=== PATIENT | male | born 1955 | race African-American/Black ===

== ENCOUNTER 2016-08-20 12:15 | Inpatient (IN) | payer MEDICARE, OTHER ==
[~2016-08-20] VITALS: Ht 175.3 cm; Wt 89.7 kg
[2016-08-20] VITALS (8 sets, daily range): BP systolic 115–154; BP diastolic 62–90; PULSE 76–110; RESP 16–20; TEMP 98–99; O2SAT 93–100
[~2016-08-20 12:15] MED LIST: AMLO5 PO; GABA300C3 PO; LIPI10TA PO; METO50TA PO; OMEP20TA PO; PHEN100 PO; RIVA20 PO; VALP250 PO; VIMP200T PO; VITA-83 PO
[2016-08-20] MEDS ORDERED: SODIUM CHLORIDE 0.9% FLUSH 5 ML FLUSH IVF PRN ×2 (12:30→14:45)
[2016-08-20] MEDS ORDERED: LORazepam 2 MG/ML VIAL ONE ×2 (13:01→13:02)
[2016-08-20 13:09] LABS: AUTOMATED NEUTROPHIL # 3.5 TH/MM3 (1.8-7.7); BASOPHIL # 0.1 TH/MM3 (0-0.2); BASOPHIL % 0.6 % (0.0-2.0); EOSINOPHIL # 0.1 TH/MM3 (0-0.4); EOSINOPHIL % 1.3 % (0.0-4.0); HEMATOCRIT 44.7 % (39.0-51.0); LYMPH % 52.9 % (9.0-44.0); LYMPHOCYTE # 5.4 TH/MM3 (1.0-4.8); MEAN CELL VOLUME 96.3 FL (80.0-100.0); MEAN CORPUSCULAR HEMOGLOBIN 32.7 PG (27.0-34.0); MONO % 11.2 % (0.0-8.0); PLATELET COUNT 216 TH/MM3 (150-450); RED BLOOD COUNT 4.65 MIL/MM3 (4.50-5.90); RED CELL DISTRIBUTION WIDTH 14.3 % (11.6-17.2); WHITE BLOOD COUNT 10.2 TH/MM3 (4.0-11.0)
[2016-08-20 13:10] LABS: HEMO FLAGS AUTO DIFF
[2016-08-20] MEDS ORDERED: levETIRAcetam 1000 MG INJ 100 ML IV ONE (13:15)
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
[2016-08-20] MEDS ORDERED: SODIUM CHLOR 0.9% 1000 ML INJ 1,000 ML IV ONE (13:30)
[2016-08-20 13:39] LABS: BICARBONATE 14.8 MEQ/L (21.0-32.0)
[2016-08-20 13:40] LABS: POTASSIUM 4.5 MEQ/L (3.5-5.1)
--- NOTE | 2016-08-20 13:51 | RADRPT ---
EXAM DATE/TIME: 08/20/2016 13:24 [facility] COMPARISON: CT BRAIN W/O CONTRAST, December 03, 2015, 12:19. CT BRAIN W/O CONTRAST, December 15, 2015, 23:10. INDICATIONS : Seizure today, previous head injury. RADIATION DOSE: 29.19 CTDIvol (mGy) MEDICAL HISTORY : Seizures. Cardiovascular disease Hypertension.CVA SURGICAL HISTORY : SURGERY FOR SUBDURAL ENCOUNTER: Initial ACUITY: 1 day PAIN SCALE: Non-responsive LOCATION: cranial TECHNIQUE: Multiple contiguous axial images were obtained of the head. Using automated exposure control and adj ustment of the mA and/or kV according to patient size, radiation dose was kept as low as reasonably a chievable to obtain optimal diagnostic quality images. FINDINGS: A large low density left subdural collection is again noted extending along the frontal and hayley etal convexities. This measures up to approximately 2.5 cm in diameter and is not significantly alves ed. Extensive encephalomalacia is noted involving the right middle cerebral artery territory includin g the frontal lobe, parietal lobe and temporal lobe. This does not appear significantly changed. Midl ine shift is again noted to the right measuring approximately 10 mm. This does not appear significant ly changed. The lateral and third ventricle remain prominent but not significantly changed. Focal enc ephalomalacia is noted involving the left posterior cerebellum. CONCLUSION: 1. No acute hemorrhage or acute mass effect. 2. Stable large low density left subdural collection with shift to the right. 3. Extensive encephalomalacia again noted in the right middle territory. 4. Focal encephalomalacia in the involving the posterior left cerebellum. Karthik Mcneill MD on August 20, 2016 at 13:45 Board Certified Radiologist. This report was verified electronically.
[2016-08-20] MEDS ORDERED: LORazepam 2 MG/ML VIAL IV PUSH ONE ×2 (14:00)
[2016-08-20 14:01] LABS: EOSINOPHILS 1 % (0-4); NEUTROPHIL # MANUAL DIFF 3.8 TH/MM3 (1.8-7.7); POLYS (SEG NEUTROPHILS) 37 % (16-70); SCAN/DIFF FINAL DIFF MANUAL; WBC DIFF SAMPLE 100
[2016-08-20 14:03] LABS: PLATELET ESTIMATE SMEAR NORMAL (NORMAL); PLATELET MORPHOLOGY NORMAL (NORMAL)
[2016-08-20] MEDS ORDERED: FOSPHENYTOIN INJ 1,000 MGPE in SODIUM CHLORIDE 0.9% INJ 50 ML IV ONE (14:15)
[2016-08-20] MEDS ORDERED: LACTULOSE LIQ 300 ML in WATER STERILE FOR IRR BTL 700 ML RECTAL ONE (14:15)
--- NOTE | 2016-08-20 14:21 | RADRPT ---
EXAM DATE/TIME: 08/20/2016 13:33 [facility] COMPARISON: CHEST SINGLE AP, December 17, 2015, 3:49. INDICATIONS : Seizure. Shortness of breath. MEDICAL HISTORY : Cerebrovascular disease. Seizures. SURGICAL HISTORY : None. ENCOUNTER: Initial ACUITY: 1 day PAIN SCORE: Non-responsive. LOCATION: Bilateral chest FINDINGS: A single view of the chest demonstrates the lungs to be symmetrically aerated without evidence of mas s, infiltrate or effusion. The cardiomediastinal contours are unremarkable. Osseous structures are intact. CONCLUSION: No acute disease. Karthik Mcneill MD on August 20, 2016 at 14:15 Board Certified Radiologist. This report was verified electronically.
[2016-08-20 14:23] LABS: APTT (PATIENT) 22.2 SEC (24.3-30.1); PROTHROMBIN TIME - PATIENT 11.3 SEC (9.8-11.6)
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
[2016-08-20] MEDS ORDERED: ACETAMINOPHEN 325 MG TAB PO PRN (14:45)
[2016-08-20] MEDS ORDERED: IBUPROFEN 600 MG TAB PO PRN (14:45)
--- NOTE | 2016-08-20 16:29 | RADRPT ---
EXAM DATE/TIME: 08/20/2016 15:45 [facility] COMPARISON: MRI BRAIN W/O CONTRAST, December 16, 2015, 11:23. INDICATIONS : Epilepsy. Seizure at home today. History of prior brain trauma. MEDICAL HISTORY : Hypertension. Cerebrovascular disease. Seizures. SURGICAL HISTORY : IVC Filter placement. Fco hole. ENCOUNTER: Subsequent ACUITY: 1 day PAIN SCORE: Nonresponsive. LOCATION: Head. TECHNIQUE: Multiplanar, multisequence MRI of the brain was performed without contrast. FINDINGS: The large chronic subdural hygroma on the left is stable in size and measures 3.1 cm in greatest widt h. There is chronic subfalcine herniation to the right measuring 9 mm. Diffuse encephalomalacia is again noted involving the right frontal, parietal and temporal lobes and is unchanged. Less extensiv e encephalomalacia is noted involving the left temporal lobe and is also stable. Diffuse cerebral at rophy is noted. There is no acute infarct or acute hemorrhage. CONCLUSION: 1. No significant change compared to 12/16/2015. 2. Stable large left subdural hygroma measuring 3.1 cm in width and resulting in 9 mm of subfalcine h erniation to the right. 3. Stable extensive encephalomalacia involving the right frontal, parietal, and temporal lobes and le ft temporal lobe. 4. Cerebral atrophy. 5. No acute infarct or acute hemorrhage. Demetrio Spencer MD on August 20, 2016 at 16:11 Board Certified Radiologist. This report was verified electronically.
[2016-08-20] MEDS ORDERED: VALP250S2 PO (16:59)
[2016-08-20] MEDS ORDERED: LORA1TAB12 PO (16:59)
[2016-08-20] MEDS ORDERED: VIMP150T PO (16:59)
[2016-08-20] MEDS ORDERED: VIMP200T PO (16:59)
[2016-08-20] MEDS ORDERED: OMEP20TA PO (16:59)
[2016-08-20] MEDS ORDERED: AMLO5TAB2 PO (16:59)
[2016-08-20] MEDS ORDERED: ASPI81CH CHEW ×2 (16:59)
[2016-08-20] MEDS ORDERED: hydrALAZINE HCL 20 MG/ML VIAL IV PUSH PRN (17:45)
[2016-08-20] MEDS: DEXT 5%-NACL 0.45% 1000 ML INJ 1,000 ML IV SCH (18:48)
[2016-08-20 20:07] LABS: BLOOD, URINE MOD (NEG); COMMENT (UR) CATH-CULTURE IND; CULTURE IF INDICATED CATH CULTURE IND; GLUCOSE,URINE NEG (NEG); HYALINE CAST, URINE 4 /lpf (RARE); KETONE, URINE NEG (NEG); NITRITE,URINE NEG (NEG); URINE COLOR YELLOW (YELLW/STRAW)
[2016-08-20 20:11] LABS: AMPHETAMINE, URINE NEG (NEG); BARBITURATES, URINE NEG (NEG); COCAINE, URINE NEG (NEG)
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
[2016-08-20] MEDS ORDERED: DIVALPROEX SODIUM E.R. 250 MG TAB PO SCH (21:00)
[2016-08-20] MEDS ORDERED: amLODIPine BESYLATE 5 MG TAB PO SCH (21:00)
[2016-08-20] MEDS: SODIUM CHLORIDE 0.9% FLUSH 5 ML FLUSH IVF SCH (21:00)
[2016-08-20] MEDS ORDERED: DIVALPROEX SODIUM E.R. 500 MG TAB PO SCH (21:00)
[2016-08-20] MEDS ORDERED: VALPROATE INJ 750 MG in SODIUM CHLORIDE 0.9% INJ 100 ML IV SCH (22:00)
--- NOTE | 2016-08-20 22:04 | HHI.PR ---
Addendum to Inpatient Note Addendum Reason: Additional Documentation Additional Information Subjective Called to evaluate patient due to concerns of worsening neurologic status by nursing staff. Vital signs all within normal limits, per nursing report patient was snoring and breathing well and still protecting his airway, however concern was that he was not waking up as easily as he had previously. Objective Vitals: Reviewed and within normal limits (HR 78 at time of eval, borderline tachycardia on prior documented vitals); requiring nasal cannula at [place] 2 L to maintain O2 sats greater than 95% Gen.: Well-developed well-nourished adult male somnolent in bed in no acute distress Respiratory: Lungs clear to auscultation bilaterally. Breathing unlabored. Nasal cannula in place flow rate of 2 L. Heart: Normal rate (78), regular rhythm, normal S1 and S2, no murmur Neuro: Somnolent, opens eyes and responds to voice, localizes to pain Laboratory review: Ammonia level of 132, slightly hemolyzed Assessment and Plan 61-year-old male admitted after witnessed seizure events in setting of known seizure disorder, currently postictal Currently protecting airway well with no concerns of declining neurologic status based on our exam * Monitor respiratory status * Continue current management plan described in H&P * Repeat ammonia level sdw Ralf Alexis MD R1 Aug 20, 2016 22:04
[2016-08-20] MEDS: HEPARIN SODIUM - SQ 10,000 UNITS/ML VIAL SQ SCH (23:23)
[2016-08-20] MEDS: LACOSAMIDE IV SCH (23:24)
[2016-08-20] MEDS: PHENYTOIN INJ 100 MG/2 ML VIAL IVS SCH (23:24)
[2016-08-20] MEDS: SODIUM CHLORIDE 0.9% IV SCH (23:24)
[2016-08-21] VITALS (17 sets, daily range): BP systolic 91–192; BP diastolic 57–106; PULSE 60–88; RESP 13–22; TEMP 97.9–98.3; O2SAT 96–100
[2016-08-21 00:21] LABS: INDIRECT BILIRUBIN 0.2 MG/DL (0.0-0.8); TOTAL BILIRUBIN ADULT 0.3 MG/DL (0.2-1.0)
[2016-08-21 05:57] LABS: AUTOMATED NEUTROPHIL # 3.1 TH/MM3 (1.8-7.7); BASOPHIL % 0.3 % (0.0-2.0); EOSINOPHIL # 0.1 TH/MM3 (0-0.4); EOSINOPHIL % 1.1 % (0.0-4.0); HEMO FLAGS DIFF FINAL; LYMPH % 38.3 % (9.0-44.0); LYMPHOCYTE # 2.4 TH/MM3 (1.0-4.8); MEAN CELL VOLUME 93.7 FL (80.0-100.0); MEAN CORPUSCULAR HGB CONC 34.2 % (32.0-36.0); MONO % 10.7 % (0.0-8.0); NEUT % 49.6 % (16.0-70.0); PLATELET COUNT 154 TH/MM3 (150-450); RED BLOOD COUNT 4.59 MIL/MM3 (4.50-5.90); RED CELL DISTRIBUTION WIDTH 14.2 % (11.6-17.2); WHITE BLOOD COUNT 6.2 TH/MM3 (4.0-11.0)
[2016-08-21 06:12] LABS: ALT (GPT) 29 U/L (12-78); ANION GAP 9 MEQ/L (5-15); AST (GOT) 27 U/L (15-37); BICARBONATE 24.1 MEQ/L (21.0-32.0); BLOOD UREA NITROGEN 10 MG/DL (7-18); CHLORIDE 112 MEQ/L (98-107); GLOMERULAR FILTRATION RATE 113 ML/MIN (>89); POTASSIUM 4.3 MEQ/L (3.5-5.1); SODIUM (NA) 145 MEQ/L (136-145)
[2016-08-21 06:14] LABS: ALKALINE PHOSPHATASE 82 U/L (45-117); TOTAL BILIRUBIN ADULT 0.3 MG/DL (0.2-1.0)
[2016-08-21] MEDS ORDERED: CHLORHEXIDINE GLUCONATE 2 % 1 PACK (2 CLOTHS)(extra cloths) TOP PRN (07:45)
--- NOTE | 2016-08-21 08:30 | HHI.FPPN ---
Subjective Remarks FM Attending Note: Patient seen and examined. S: Chart and all resident physician notes reviewed. In summary this is a 61 year old male who was admitted with an admission diagnosis of Status Epilepticus. This patient suffered a traumatic brain injury with the associated subdural hematomas with hygromas. Also in his history is a cerebrovascular accident. He does have a history of seizures since the injury and is on anticonvulsant medications. On the date of admission he had breakthrough seizure activity for which he was admitted. This patient reportedly lives at home with his family who cares for him. He needs significant assistance to meet his basic activities of daily living. He normally will speak in short sentences. This morning he is sedated but does respond to pain. Objective Vitals Vital Signs Date Time Temp Pulse Resp B/P Pulse Ox O2 Delivery O2 Flow Rate FiO2 08/21/16 08:24 100 Nasal Cannula 2.00 08/21/16 06:50 98.0 70 21 123/70 99 08/21/16 06:00 64 16 163/99 97 08/21/16 05:00 68 16 162/85 96 Nasal Cannula 2 08/21/16 04:00 98.1 86 16 159/95 100 Nasal Cannula 2 08/21/16 03:00 88 16 154/96 98 Nasal Cannula 2 08/21/16 02:00 80 18 156/96 97 Nasal Cannula 2 08/21/16 00:00 76 16 192/106 96 Nasal Cannula 2 08/20/16 22:00 78 18 154/90 96 Nasal Cannula 2 08/20/16 21:00 76 18 115/70 93 Nasal Cannula 08/20/16 20:00 80 19 145/90 99 Nasal Cannula 2 08/20/16 20:00 96 Nasal Cannula 2.00 08/20/16 19:00 98.0 76 19 141/71 98 Nasal Cannula 2 08/20/16 16:51 103 19 133/62 96 Nasal Cannula 2 08/20/16 15:25 103 16 138/83 97 Nasal Cannula 2 08/20/16 13:30 110 18 145/90 100 Non-Rebreather 08/20/16 12:20 99.0 97 20 141/86 I/O 08/20/16 08/20/16 08/20/16 08/21/16 08/21/16 08/21/16 07:00 15:00 23:00 07:00 15:00 23:00 Intake Total 1290 ml Output Total 500 ml Balance 790 ml Intake Oral 0 ml IV Total 1290 ml Output Urine Total 200 ml Stool Total 300 ml Result Diagram: 08/21/1652408/21/16524 Other Results Item Value Date Time Total Creatine Kinase 993 U/L H 08/20/16 1250 Calcium Level 10.8 MG/DL H 08/20/16 1250 Creatine Kinase MB 2.0 NG/ML 08/20/16 1250 Creatine Kinase MB % 0.2 % 08/20/16 1250 Ammonia 132 MCMOL/L H 08/20/16 1250 Ammonia 59 MCMOL/L H 08/20/16 2355 Ammonia 49 MCMOL/L H 08/21/16 0525 Phenytoin (Dilantin) Level 8.9 MCG/ML L 08/21/16 0525 Valproic Acid (Depakene) Level 95 MCG/ML 08/21/16 0525 Imaging Last [address] 08/20/16 1230 Signed Impressions: Service Date/Time: Saturday, August 20, 2016 13:24 - CONCLUSION: 1. No acute hemorrhage or acute mass effect. 2. Stable large low density left subdural collection with shift to the right. 3. Extensive encephalomalacia again noted in the right middle territory. 4. Focal encephalomalacia in the involving the posterior left cerebellum. Karthik Mcneill MD Chest X-Ray 08/20/16 1230 Signed Impressions: Service Date/Time: Saturday, August 20, 2016 13:33 - CONCLUSION: No acute disease. Karthik Mcneill MD Brain MRI 08/20/16 0000 Signed Impressions: Service Date/Time: Saturday, August 20, 2016 15:45 - CONCLUSION: 1. No significant change compared to 12/16/2015. 2. Stable large left subdural hygroma measuring 3.1 cm in width and resulting in 9 mm of subfalcine herniation to the right. 3. Stable extensive encephalomalacia involving the right frontal, parietal, and temporal lobes and left temporal lobe. 4. Cerebral atrophy. 5. No acute infarct or acute hemorrhage. Demetrio Spencer MD Objective Remarks O. CONSTITUTIONAL/GEN: normally nourished, in NAD. EYES: conjunctiva cortez. ENT: Mouth and pharynx normal. NECK: supple LUNGS: clear A-P, respiratory effort is normal. CARDIOVASCULAR: RR without murmur or gallop. No significant edema. PSYCH/MENTAL STATUS: Somnolent; will arouse to mild physical stimuli; non- verbal at this time. A/P Assessment and Plan This a 61-year-old Linda male with a past history significant for CVA , epilepsy, hypertension, left subdural hygroma, subdural hematoma, reticulocyte brain injury, and bilateral upper extremity DVTs. Being admitted for seizure like activity Problem List: (1) Seizures Status: Acute Plan: Patient with history of seizures. Recently had a decrease in his seizure medication valproic acid. His neurologist is Dr. Ricks who has been consulted. * Admitted to inpatient * Fosphenytoin 1 g IV * Keppra 1 g IV bolus once * Keppra 50 mg by mouth every 12 hours * Ativan received in the ED * Dilantin 100 mg IV every 8 hours * CBC, CMP, Dilantin level ordered: Results pending * UA ordered: Results pending 08/21/16 Patient seen by neurology. Medications will be adjusted. (2) Hypertension Status: Chronic Plan: Long-standing history of hypertension * Continue home medication of amlodipine 5 mg by mouth twice a day * Hydralazine when necessary elevated blood pressure (3) History of CVA (cerebrovascular accident) Status: Acute Plan: History of CVA * Continue aspirin 162 mg (4) Hypernatremia Status: Resolved Plan: Found to be hypernatremic at 147 on admission. * Slowly correct with IV fluids (5) Deep vein thrombosis Status: Acute Plan: Currently not on any home medications * DVT prophylaxis with SCDs and heparin 5000 units every 8 (6) Nutrition, metabolism, and development symptoms Status: Acute Plan: Bed rest Nothing by mouth Vitals every 4 Neuro checks every 4 Monitor electrolytes replace accordingly IV fluids: D5 half-normal saline DVT prophylaxis: SCD and heparin CODE STATUS: Full code Disposition: To be determined with improvement of clinical state Problem Qualifiers (1) Hypertension: Qualified Code: I10 - Essential hypertension Dmitriy Waggoner MD Aug 21, 2016 08:30
--- NOTE | 2016-08-21 08:53 | HHI.PR ---
Review/Management Diagnosis/Plan: (1) Status epilepticus Plan: intractable epilepsy on 2 sz meds with good levels aed levels reviewed recs eeg-pending continue depakote/dilantin/vimpat; will reduce depakote to 500mg bid tele (2) Dementia Plan: vascular and traumatic aphasic/wheelchair bound at baseline (3) Encephalomalacia with cerebral infarction Plan: severe rt>left temporal encephalomalacia (4) TBI (traumatic brain injury) (5) Hypertension Subjective Subjective Comments No acute events reported no sz reported Active Medications Current Medications Medications (Trade) Dose Ordered Sig/Saundra Route Start Time Stop Time Status Last Admin (D5W-07/15 NS 1000 ml Inj) 1,000 ml @ 100 mls/hr Q10H IV 08/20/16 15:00 08/20/16 18:48 (NS Flush) 2 ml UNSCH PRN IVF 08/20/16 14:45 (NS Flush) 2 ml BID IVF 08/20/16 21:00 (Tylenol) 650 mg Q4H PRN PO 08/20/16 14:45 (Motrin) 600 mg Q8H PRN PO 08/20/16 14:45 (Dilantin Inj) 100 mg Q8H IVS 08/20/16 23:00 08/20/16 23:24 (Norvasc) 5 mg BID PO 08/20/16 21:00 Hold (Aspirin Chew) 162 mg DAILY CHEW 08/21/16 09:00 (Protonix) 20 mg DAILY PO 08/21/16 09:00 (Apresoline Inj) 10 mg Q30M PRN IV PUSH 08/20/16 17:45 08/20/16 23:23 Heparin Sodium (Porcine) 5000 units 5,000 units Q8HR SQ 08/20/16 22:00 08/20/16 23:23 (Vimpat Inj/NS Inj) 125 ml @ 120 mls/hr Q12H IV 08/20/16 23:00 08/20/16 23:24 Divalproex Sodium 750 mg 750 mg BID PO 08/20/16 21:00 Hold (Depacon Inj/NS Inj) 107.5 ml @ 105 mls/hr BID IV 08/20/16 22:00 08/20/16 23:23 Miscellaneous Information Patient in critical care unit? Ass... Q361D XX 08/21/16 07:45 (Chlorhexidine 2% Cloth) 3 pack DAILY@04 TOP 08/22/16 04:00 08/26/16 04:01 (Chlorhexidine 2% Cloth) 3 pack UNSCH PRN TOP 08/21/16 07:45 08/26/16 07:39 (Pneumovax-23 Inj) 25 mcg ONCE ONCE IM 08/22/16 10:00 08/22/16 10:01 (Flu (Quadrivalent) Vaccine Inj) 0.5 ml ONCE ONCE IM 08/22/16 10:00 08/22/16 10:01 Allergies Allergies Coded Allergies *MDRO Multi-Drug Resistant Organism (Unverified Allergy, Unknown, 08/20/16) Review of Systems All other ROS: ROS reviewed as documented in chart, Unable to obtain Exam I&O / VS 08/20/16 08/20/16 08/21/16 14:59 22:59 06:59 Intake Total 1290 ml Output Total 500 ml Balance 790 ml Intake Oral 0 ml IV Total 1290 ml Output Urine Total 200 ml Stool Total 300 ml Vital Signs Date Time Temp Pulse Resp B/P Pulse Ox O2 Delivery O2 Flow Rate FiO2 08/21/16 08:24 100 Nasal Cannula 2.00 08/21/16 06:50 98.0 70 21 123/70 99 08/21/16 06:00 64 16 163/99 97 08/21/16 05:00 68 16 162/85 96 Nasal Cannula 2 08/21/16 04:00 98.1 86 16 159/95 100 Nasal Cannula 2 08/21/16 03:00 88 16 154/96 98 Nasal Cannula 2 08/21/16 02:00 80 18 156/96 97 Nasal Cannula 2 08/21/16 00:00 76 16 192/106 96 Nasal Cannula 2 08/20/16 22:00 78 18 154/90 96 Nasal Cannula 2 08/20/16 21:00 76 18 115/70 93 Nasal Cannula 08/20/16 20:00 80 19 145/90 99 Nasal Cannula 2 08/20/16 20:00 96 Nasal Cannula 2.00 08/20/16 19:00 98.0 76 19 141/71 98 Nasal Cannula 2 08/20/16 16:51 103 19 133/62 96 Nasal Cannula 2 08/20/16 15:25 103 16 138/83 97 Nasal Cannula 2 08/20/16 13:30 110 18 145/90 100 Non-Rebreather 08/20/16 12:20 99.0 97 20 141/86 Eye: PERRL, Other Respiratory: Coarse breath sounds Psychiatric: Other Exam Comments drowsy, resists pupillary exam, turns head side to side, no involuntary movements, face sym, mild spasticity in all 4 ext; legs weaker then arms, bradykinetic, msr 1-2+ Objective Micro and Labs Laboratory Tests Test 08/20/16 08/20/16 08/20/16 08/20/16 12:50 13:35 19:30 23:55 White Blood Count 10.2 Red Blood Count 4.65 Hemoglobin 15.2 Hematocrit 44.7 Mean Corpuscular Volume 96.3 Mean Corpuscular Hemoglobin 32.7 Mean Corpuscular Hemoglobin 34.0 Concent Red Cell Distribution Width 14.3 Platelet Count 216 Mean Platelet Volume 9.9 Neutrophils (%) (Auto) 34.0 Lymphocytes (%) (Auto) 52.9 Monocytes (%) (Auto) 11.2 Eosinophils (%) (Auto) 1.3 Basophils (%) (Auto) 0.6 Neutrophils # (Auto) 3.5 Lymphocytes # (Auto) 5.4 Monocytes # (Auto) 1.1 Eosinophils # (Auto) 0.1 Basophils # (Auto) 0.1 CBC Comment AUTO DIFF Differential Total Cells 100 Counted Neutrophils % (Manual) 37 Lymphocytes % 54 Monocytes % 8 Eosinophils % 1 Neutrophils # (Manual) 3.8 Differential Comment FINAL DIFF MANUAL Platelet Estimate NORMAL Platelet Morphology Comment NORMAL Sodium Level 147 Potassium Level 4.5 Chloride Level 115 Carbon Dioxide Level 14.8 Anion Gap 17 Blood Urea Nitrogen 15 Creatinine 1.28 Estimat Glomerular Filtration 69 Rate Random Glucose 115 Calcium Level 10.8 Ammonia 132 59 Total Creatine Kinase 993 Creatine Kinase MB 2.0 Creatine Kinase MB % 0.2 Valproic Acid (Depakene) Level 74 70 Prothrombin Time 11.3 Prothromb Time International 1.0 Ratio Activated Partial 22.2 Thromboplast Time Urine Color YELLOW Urine Turbidity CLEAR Urine pH 7.0 Urine Specific [place] 1.017 Urine Protein TRACE Urine Glucose (UA) NEG Urine Ketones NEG Urine Occult Blood MOD Urine Nitrite NEG Urine Bilirubin NEG Urine Urobilinogen LESS THAN 2.0 Urine Leukocyte Esterase NEG Urine RBC Urine WBC 7 Urine Hyaline Casts 4 Microscopic Urinalysis Comment CATH-CULTURE IND Urine Opiates Screen NEG Urine Barbiturates Screen NEG Urine Amphetamines Screen NEG Urine Benzodiazepines Screen NEG Urine Cocaine Screen NEG Urine Cannabinoids Screen NEG Total Bilirubin 0.3 Direct Bilirubin 0.1 Indirect Bilirubin 0.2 Aspartate Amino Transf 25 (AST/SGOT) Alanine Aminotransferase 27 (ALT/SGPT) Alkaline Phosphatase 77 Total Protein 7.1 Albumin 3.4 Test 08/21/16 05:25 White Blood Count 6.2 Red Blood Count 4.59 Hemoglobin 14.7 Hematocrit 43.0 Mean Corpuscular Volume 93.7 Mean Corpuscular Hemoglobin 32.0 Mean Corpuscular Hemoglobin 34.2 Concent Red Cell Distribution Width 14.2 Platelet Count 154 Mean Platelet Volume 9.2 Neutrophils (%) (Auto) 49.6 Lymphocytes (%) (Auto) 38.3 Monocytes (%) (Auto) 10.7 Eosinophils (%) (Auto) 1.1 Basophils (%) (Auto) 0.3 Neutrophils # (Auto) 3.1 Lymphocytes # (Auto) 2.4 Monocytes # (Auto) 0.7 Eosinophils # (Auto) 0.1 Basophils # (Auto) 0.0 CBC Comment DIFF FINAL Differential Comment Sodium Level 145 Potassium Level 4.3 Chloride Level 112 Carbon Dioxide Level 24.1 Anion Gap 9 Blood Urea Nitrogen 10 Creatinine 0.83 Estimat Glomerular Filtration 113 Rate Random Glucose 96 Calcium Level 10.2 Total Bilirubin 0.3 Aspartate Amino Transf 27 (AST/SGOT) Alanine Aminotransferase 29 (ALT/SGPT) Alkaline Phosphatase 82 Ammonia 49 Total Protein 7.6 Albumin 3.6 Phenytoin (Dilantin) Level 8.9 Valproic Acid (Depakene) Level 95 Date/Time Procedure Status Source Growth 08/20/16 19:30 Urine Culture Received Urine Catheterized Urine Pending Problem Qualifiers (1) Dementia: (2) TBI (traumatic brain injury): (3) Hypertension: Qualified Code: I10 - Essential hypertension Jeremy Ricks MD Aug 21, 2016 08:53
[2016-08-21] MEDS ORDERED: levETIRAcetam 500 MG TAB PO SCH (09:00)
[2016-08-21] MEDS: PANTOPRAZOLE SOD 20 MG DELAYED RELEASE TAB PO SCH (10:12)
[2016-08-21] MEDS: ASPIRIN 81 MG CHEW TAB CHEW SCH (10:12)
[2016-08-21] MEDS: VALPROATE INJ 500 MG in SODIUM CHLORIDE 0.9% INJ 100 ML IV SCH ×2 (10:12→20:34)
[2016-08-21] MEDS: HEPARIN SODIUM - SQ 10,000 UNITS/ML VIAL SQ SCH ×3 (10:13→20:21)
[2016-08-21] MEDS: PHENYTOIN INJ 100 MG/2 ML VIAL IVS SCH ×3 (10:13→23:00)
[2016-08-21] MEDS: SODIUM CHLORIDE 0.9% FLUSH 5 ML FLUSH IVF SCH ×2 (10:14→20:20)
[2016-08-21] MEDS: LACOSAMIDE IV SCH ×2 (12:42→23:03)
[2016-08-21] MEDS: SODIUM CHLORIDE 0.9% IV SCH ×2 (12:42→23:03)
--- NOTE | 2016-08-21 18:39 | MG ---
cc: RACHEL TEMPLE Lab No: Date: 08/21/2016 Age: Sex: M Race: EEG NUMBER [id number] Cardiac catheterization. MEDICATIONS 1. Dilantin. 2. Depakote. Expressive aphasia. DESCRIPTION The recording starts off with a symmetric 8 Hz 50 microvolt rhythm. Towards the middle there is some diffuse 6 Hz slowing, but again no hemisphere asymmetry. No left temporal lobe abnormalities are noted and then the slowing dissipates. Photic stimulation was performed without significant posterior driving. The patient sneezed once. Hyperventilation was performed with good effort. He is noted to snore throughout the recording but did not quite reach stage II sleep. Some right leg shaking was noted. This did not correlate with any activities. Photic stimulation was performed without significant posterior driving. The tech notes hyperventilation was performed with good effort but I do not see where actually the patient was hyperventilated. IMPRESSION Basically unremarkable awake and sleep EEG. The patient did not reach stage II sleep. No epileptiform or seizure activity is noted. There were no focal abnormalities. MD NOBLE Asif/KK /5:45 PM /6:26 PM
[2016-08-21] MEDS: DEXT 5%-NACL 0.45% 1000 ML INJ 1,000 ML IV SCH ×2 (19:29→20:20)
--- NOTE | 2016-08-21 22:58 | EKG ---
Date Performed: 08/20/2016 Time Performed: 12:52:43 PTAGE: 61 years EKG: SINUS TACHYCARDIA POSSIBLE INFERIOR MYOCARDIAL INFARCTION ABNORMAL RHYTHM ECG PREVIOUS TRACING : 12/15/2015 22.59 Compared to the previous tracing, rate has increased, other ash no changes noted DOCTOR: Kermit Oglesby Interpretating Date/Time 08/21/2016 22:56:21
[2016-08-22] VITALS (13 sets, daily range): BP systolic 115–153; BP diastolic 60–84; PULSE 58–98; RESP 13–20; TEMP 98–98.8; O2SAT 95–100
[2016-08-22] MEDS: CHLORHEXIDINE GLUCONATE 2 % 1 PACK (2 CLOTHS)(taper/protocol) TOP SCH (02:33)
[2016-08-22] MEDS: HEPARIN SODIUM - SQ 10,000 UNITS/ML VIAL SQ SCH ×3 (05:16→21:04)
[2016-08-22] MEDS: PHENYTOIN INJ 100 MG/2 ML VIAL IVS SCH ×3 (05:17→23:22)
[2016-08-22] MEDS: DEXT 5%-NACL 0.45% 1000 ML INJ 1,000 ML IV SCH ×2 (05:17→16:33)
[2016-08-22 08:45] LABS: MEAN CELL VOLUME 94.3 FL (80.0-100.0); MEAN CORPUSCULAR HEMOGLOBIN 32.5 PG (27.0-34.0); MEAN CORPUSCULAR HGB CONC 34.4 % (32.0-36.0); PLATELET COUNT 153 TH/MM3 (150-450); RED BLOOD COUNT 3.92 MIL/MM3 (4.50-5.90); RED CELL DISTRIBUTION WIDTH 13.9 % (11.6-17.2); WHITE BLOOD COUNT 4.6 TH/MM3 (4.0-11.0)
[2016-08-22 09:02] LABS: HEMO FLAGS AUTO DIFF
--- NOTE | 2016-08-22 09:02 | HHI.PR ---
Review/Management Diagnosis/Plan: (1) Status epilepticus Plan: intractable epilepsy on 2 sz meds with good levels aed levels reviewed recs eeg-no sz ok for floor tiith tele; d/c planning f/u aed levels-pending this am (2) Dementia Plan: vascular and traumatic aphasic/wheelchair bound at baseline (3) Encephalomalacia with cerebral infarction Plan: severe rt>left temporal encephalomalacia (4) TBI (traumatic brain injury) (5) Hypertension Subjective Subjective Comments No acute events reported Active Medications Current Medications Medications (Trade) Dose Ordered Sig/Saundra Route Start Time Stop Time Status Last Admin (D5W-07/15 NS 1000 ml Inj) 1,000 ml @ 100 mls/hr Q10H IV 08/20/16 15:00 08/22/16 05:17 (NS Flush) 2 ml UNSCH PRN IVF 08/20/16 14:45 (NS Flush) 2 ml BID IVF 08/20/16 21:00 08/21/16 10:14 (Tylenol) 650 mg Q4H PRN PO 08/20/16 14:45 (Motrin) 600 mg Q8H PRN PO 08/20/16 14:45 (Dilantin Inj) 100 mg Q8H IVS 08/20/16 23:00 08/22/16 05:17 (Norvasc) 5 mg BID PO 08/20/16 21:00 Hold (Aspirin Chew) 162 mg DAILY CHEW 08/21/16 09:00 08/21/16 10:12 (Protonix) 20 mg DAILY PO 08/21/16 09:00 08/21/16 10:12 (Apresoline Inj) 10 mg Q30M PRN IV PUSH 08/20/16 17:45 08/20/16 23:23 Heparin Sodium (Porcine) 5000 units 5,000 units Q8HR SQ 08/20/16 22:00 08/22/16 05:16 (Vimpat Inj/NS Inj) 125 ml @ 120 mls/hr Q12H IV 08/20/16 23:00 08/21/16 23:03 (Depakote Er) 750 mg BID PO 08/20/16 21:00 Hold Miscellaneous Information Patient in critical care unit? Ass... Q361D XX 08/21/16 07:45 (Chlorhexidine 2% Cloth) 3 pack DAILY@04 TOP 08/22/16 04:00 08/26/16 04:01 08/22/16 02:33 (Chlorhexidine 2% Cloth) 3 pack UNSCH PRN TOP 08/21/16 07:45 08/26/16 07:39 (Pneumovax-23 Inj) 25 mcg ONCE ONCE IM 08/22/16 10:00 08/22/16 10:01 Influenza Virus Vaccine 0.5 ml 0.5 ml ONCE ONCE IM 08/22/16 10:00 08/22/16 10:01 (Depacon Inj/NS Inj) 105 ml @ 105 mls/hr BID IV 08/21/16 10:00 08/21/16 20:34 Allergies Allergies Coded Allergies *MDRO Multi-Drug Resistant Organism (Unverified Allergy, Unknown, 08/20/16) Review of Systems All other ROS: ROS reviewed as documented in chart, Unable to obtain Exam I&O / VS 08/21/16 08/21/16 08/22/16 15:00 23:00 07:00 Intake Total 686 ml 790 ml 590 ml Output Total 250 ml 375 ml 225 ml Balance 436 ml 415 ml 365 ml Intake Oral 50 ml 50 ml IV Total 636 ml 740 ml 590 ml Output Urine Total 250 ml 275 ml 200 ml Stool Total 100 ml 25 ml Vital Signs Date Time Temp Pulse Resp B/P Pulse Ox O2 Delivery O2 Flow Rate FiO2 08/22/16 06:00 66 08/22/16 04:00 61 08/22/16 04:00 98.0 61 20 116/73 100 08/22/16 02:00 74 08/22/16 00:00 58 08/22/16 00:00 98.1 58 13 115/64 99 08/21/16 22:00 72 08/21/16 21:00 100 Nasal Cannula 2.00 08/21/16 20:00 71 08/21/16 20:00 98.2 71 13 117/80 100 08/21/16 18:00 74 08/21/16 16:00 60 08/21/16 16:00 98.3 60 18 91/57 100 08/21/16 14:00 70 08/21/16 12:00 62 08/21/16 12:00 98.0 62 14 105/62 100 08/21/16 10:00 67 Eye: PERRL, Other Respiratory: Coarse breath sounds Psychiatric: Other Exam Comments drowsy, easily awakens, non-verbal, not following, resists pupillary exam, turns head side to side, no involuntary movements, face sym, mild spasticity in all 4 ext; legs weaker then arms, bradykinetic, msr 1-2+ Objective Micro and Labs Date/Time Procedure Status Source Growth 08/20/16 19:30 Urine Culture - Preliminary Resulted Urine Catheterized Urine IMMATURE GROWTH - REINCUBATE Problem Qualifiers (1) Dementia: (2) TBI (traumatic brain injury): (3) Hypertension: Qualified Code: I10 - Essential hypertension Jeremy Ricks MD Aug 22, 2016 09:02
[2016-08-22 09:09] LABS: BICARBONATE 27.1 MEQ/L (21.0-32.0); POTASSIUM 4.2 MEQ/L (3.5-5.1)
[2016-08-22] MEDS: PANTOPRAZOLE SOD 20 MG DELAYED RELEASE TAB PO SCH (09:10)
[2016-08-22] MEDS: SODIUM CHLORIDE 0.9% FLUSH 5 ML FLUSH IVF SCH ×2 (09:10→21:04)
[2016-08-22] MEDS: ASPIRIN 81 MG CHEW TAB CHEW SCH (09:10)
[2016-08-22] MEDS: VALPROATE INJ 500 MG in SODIUM CHLORIDE 0.9% INJ 100 ML IV SCH ×2 (09:13→21:03)
[2016-08-22 09:33] LABS: EOSINOPHILS 6 % (0-4); NEUTROPHIL # MANUAL DIFF 1.7 TH/MM3 (1.8-7.7); PLATELET ESTIMATE SMEAR NORMAL (NORMAL); PLATELET MORPHOLOGY NORMAL (NORMAL); POLYS (SEG NEUTROPHILS) 38 % (16-70); SCAN/DIFF FINAL DIFF MANUAL; WBC DIFF SAMPLE 100
--- NOTE | 2016-08-22 09:48 | HHI.FPPN ---
Subjective Remarks Patient seen and examined this morning. NAEO. Lying in bed in no apparent distress. No active seizures at this time (James Baker MD R2) Objective Vitals Vital Signs Date Time Temp Pulse Resp B/P Pulse Ox O2 Delivery O2 Flow Rate FiO2 08/22/16 06:00 66 08/22/16 04:00 61 08/22/16 04:00 98.0 61 20 116/73 100 08/22/16 02:00 74 08/22/16 00:00 58 08/22/16 00:00 98.1 58 13 115/64 99 08/21/16 22:00 72 08/21/16 21:00 100 Nasal Cannula 2.00 08/21/16 20:00 71 08/21/16 20:00 98.2 71 13 117/80 100 08/21/16 18:00 74 08/21/16 16:00 60 08/21/16 16:00 98.3 60 18 91/57 100 08/21/16 14:00 70 08/21/16 12:00 62 08/21/16 12:00 98.0 62 14 105/62 100 08/21/16 10:00 67 I/O 08/21/16 08/21/16 08/21/16 08/22/16 08/22/16 08/22/16 07:00 15:00 23:00 07:00 15:00 23:00 Intake Total 1290 ml 686 ml 790 ml 590 ml Output Total 500 ml 250 ml 375 ml 225 ml Balance 790 ml 436 ml 415 ml 365 ml Intake Oral 0 ml 50 ml 50 ml IV Total 1290 ml 636 ml 740 ml 590 ml Output Urine Total 200 ml 250 ml 275 ml 200 ml Stool Total 300 ml 100 ml 25 ml (James Baker MD R2) Result Diagram: 08/22/16 0830 08/22/16 0830 Imaging Last Impressions Head CT 08/20/16 1230 Signed Impressions: Service Date/Time: Saturday, August 20, 2016 13:24 - CONCLUSION: 1. No acute hemorrhage or acute mass effect. 2. Stable large low density left subdural collection with shift to the right. 3. Extensive encephalomalacia again noted in the right middle territory. 4. Focal encephalomalacia in the involving the posterior left cerebellum. Karthik Mcneill MD Chest X-Ray 08/20/16 1230 Signed Impressions: Service Date/Time: Saturday, August 20, 2016 13:33 - CONCLUSION: No acute disease. Karthik Mcneill MD Brain MRI 08/20/16 0000 Signed Impressions: Service Date/Time: Saturday, August 20, 2016 15:45 - CONCLUSION: 1. No significant change compared to 12/16/2015. 2. Stable large left subdural hygroma measuring 3.1 cm in width and resulting in 9 mm of subfalcine herniation to the right. 3. Stable extensive encephalomalacia involving the right frontal, parietal, and temporal lobes and left temporal lobe. 4. Cerebral atrophy. 5. No acute infarct or acute hemorrhage. Demetrio Spencer MD Objective Remarks O. CONSTITUTIONAL/GEN: normally nourished, in NAD. EYES: conjunctiva cortez. ENT: Mouth and pharynx normal. NECK: supple LUNGS: clear A-P, respiratory effort is normal. CARDIOVASCULAR: RR without murmur or gallop. No significant edema. PSYCH/MENTAL STATUS: Somnolent; will arouse to mild physical stimuli; non- verbal at this time. Medications and IVs Current Medications Medications (Trade) Dose Ordered Sig/Saundra Route Start Time Stop Time Status Last Admin (D5W-07/15 NS 1000 ml Inj) 1,000 ml @ 100 mls/hr Q10H IV 08/20/16 15:00 08/22/16 05:17 (NS Flush) 2 ml UNSCH PRN IVF 08/20/16 14:45 (NS Flush) 2 ml BID IVF 08/20/16 21:00 08/22/16 09:10 (Tylenol) 650 mg Q4H PRN PO 08/20/16 14:45 (Motrin) 600 mg Q8H PRN PO 08/20/16 14:45 (Dilantin Inj) 100 mg Q8H IVS 08/20/16 23:00 08/22/16 05:17 (Norvasc) 5 mg BID PO 08/20/16 21:00 Hold (Aspirin Chew) 162 mg DAILY CHEW 08/21/16 09:00 08/22/16 09:10 (Protonix) 20 mg DAILY PO 08/21/16 09:00 08/22/16 09:10 (Apresoline Inj) 10 mg Q30M PRN IV PUSH 08/20/16 17:45 08/20/16 23:23 Heparin Sodium (Porcine) 5000 units 5,000 units Q8HR SQ 08/20/16 22:00 08/22/16 05:16 (Vimpat Inj/NS Inj) 125 ml @ 120 mls/hr Q12H IV 08/20/16 23:00 08/21/16 23:03 (Depakote Er) 750 mg BID PO 08/20/16 21:00 Hold Miscellaneous Information Patient in critical care unit? Ass... Q361D XX 08/21/16 07:45 (Chlorhexidine 2% Cloth) 3 pack DAILY@04 TOP 08/22/16 04:00 08/26/16 04:01 08/22/16 02:33 (Chlorhexidine 2% Cloth) 3 pack UNSCH PRN TOP 08/21/16 07:45 08/26/16 07:39 (Pneumovax-23 Inj) 25 mcg ONCE ONCE IM 08/22/16 10:00 08/22/16 10:01 Influenza Virus Vaccine 0.5 ml 0.5 ml ONCE ONCE IM 08/22/16 10:00 08/22/16 10:01 (Depacon Inj/NS Inj) 105 ml @ 105 mls/hr BID IV 08/21/16 10:00 08/22/16 09:13 (James Baker MD R2) A/P Assessment and Plan This a 61-year-old Linda male with a past history significant for CVA , epilepsy, hypertension, left subdural hygroma, subdural hematoma, traumatic brain injury, and bilateral upper extremity DVTs. Being admitted for seizure like activity Discharge Planning To be determined by neurology (James Baker MD R2) Attending Attestation Case reviewed and discussed with the resident team. Agree with plan of care as discussed with me and documented in the resident note. (Dmitriy Waggoner MD) Problem List: (1) Seizures Status: Acute Plan: Patient with history of seizures. Recently had a decrease in his seizure medication valproic acid. His neurologist is Dr. Ricks who has been consulted. * Admitted to inpatient * Valproate 500mg BID IV * Dilantin 100 IV q8Hr * Lacosomide 250mg IV q 12hr * EEG: NO active seizures (2) Hypertension Status: Chronic Plan: Long-standing history of hypertension * Continue home medication of amlodipine 5 mg by mouth twice a day * Hydralazine when necessary elevated blood pressure (3) History of CVA (cerebrovascular accident) Status: Acute Plan: History of CVA * Continue aspirin 162 mg (4) Hypernatremia Status: Resolved Plan: Found to be hypernatremic at 147 on admission. * Slowly correct with IV fluids (5) Deep vein thrombosis Status: Acute Plan: Currently not on any home medications * DVT prophylaxis with SCDs and heparin 5000 units every 8 (6) Nutrition, metabolism, and development symptoms Status: Acute Plan: Bed rest Puree diet Vitals every 4 Neuro checks every 4 Monitor electrolytes replace accordingly IV fluids: D5 half-normal saline DVT prophylaxis: SCD and heparin CODE STATUS: Full code Disposition: Pending neurology recommendations (James Baker MD R2) Problem Qualifiers (1) Hypertension: Qualified Code: I10 - Essential hypertension James Baker MD R2 Aug 22, 2016 09:48 Dmitriy Waggoner MD Aug 22, 2016 14:10
[2016-08-22] MEDS ORDERED: INFLUENZA VIRUS VACCINE (QUADRIVALENT) 0.5 ML SYR IM ONE (10:00)
[2016-08-22] MEDS ORDERED: PNEUMOCOCCAL POLYVALENT INJ 25 MCG/0.5 ML SYR IM ONE (10:00)
[2016-08-22] MEDS: SODIUM CHLORIDE 0.9% IV SCH ×2 (12:21→23:19)
[2016-08-22] MEDS: LACOSAMIDE IV SCH ×2 (12:21→23:19)
[2016-08-23] VITALS (7 sets, daily range): BP systolic 108–133; BP diastolic 56–96; PULSE 56–64; RESP 12–20; TEMP 98.1–99.1; O2SAT 97–100
[2016-08-23] MEDS: DEXT 5%-NACL 0.45% 1000 ML INJ 1,000 ML IV SCH (03:37)
[2016-08-23] MEDS: CHLORHEXIDINE GLUCONATE 2 % 1 PACK (2 CLOTHS)(taper/protocol) TOP SCH (03:37)
[2016-08-23] MEDS: PHENYTOIN INJ 100 MG/2 ML VIAL IVS SCH (06:06)
[2016-08-23] MEDS: HEPARIN SODIUM - SQ 10,000 UNITS/ML VIAL SQ SCH (06:06)
--- NOTE | 2016-08-23 08:26 | HHI.PR ---
Review/Management Diagnosis/Plan: (1) Status epilepticus Plan: intractable epilepsy on 2 sz meds with good levels aed levels reviewed recs eeg-no sz exam stable home on depakote/dilantin d/c vimpat d/c planning today from neuro outpatient f/u in 1-2 weeks (2) Dementia Plan: vascular and traumatic aphasic/wheelchair bound at baseline (3) Encephalomalacia with cerebral infarction Plan: severe rt>left temporal encephalomalacia (4) TBI (traumatic brain injury) (5) Hypertension Subjective Subjective Comments No acute events reported no sz Active Medications Current Medications Medications (Trade) Dose Ordered Sig/Saundra Route Start Time Stop Time Status Last Admin (D5W-07/15 NS 1000 ml Inj) 1,000 ml @ 100 mls/hr Q10H IV 08/20/16 15:00 08/23/16 03:37 (NS Flush) 2 ml UNSCH PRN IVF 08/20/16 14:45 (NS Flush) 2 ml BID IVF 08/20/16 21:00 08/22/16 21:04 (Tylenol) 650 mg Q4H PRN PO 08/20/16 14:45 (Motrin) 600 mg Q8H PRN PO 08/20/16 14:45 (Dilantin Inj) 100 mg Q8H IVS 08/20/16 23:00 08/23/16 06:06 (Norvasc) 5 mg BID PO 08/20/16 21:00 Hold (Aspirin Chew) 162 mg DAILY CHEW 08/21/16 09:00 08/22/16 09:10 (Protonix) 20 mg DAILY PO 08/21/16 09:00 08/22/16 09:10 (Apresoline Inj) 10 mg Q30M PRN IV PUSH 08/20/16 17:45 08/20/16 23:23 Heparin Sodium (Porcine) 5000 units 5,000 units Q8HR SQ 08/20/16 22:00 08/23/16 06:06 (Vimpat Inj/NS Inj) 125 ml @ 120 mls/hr Q12H IV 08/20/16 23:00 08/22/16 23:19 (Depakote Er) 750 mg BID PO 08/20/16 21:00 Hold Miscellaneous Information Patient in critical care unit? Ass... Q361D XX 08/21/16 07:45 (Chlorhexidine 2% Cloth) 3 pack DAILY@04 TOP 08/22/16 04:00 08/26/16 04:01 08/23/16 03:37 Chlorhexidine Gluconate 3 pack 3 pack UNSCH PRN TOP 08/21/16 07:45 08/26/16 07:39 (Depacon Inj/NS Inj) 105 ml @ 105 mls/hr BID IV 08/21/16 10:00 08/22/16 21:03 Allergies Allergies Coded Allergies *MDRO Multi-Drug Resistant Organism (Unverified Allergy, Unknown, 08/20/16) Review of Systems All other ROS: ROS reviewed as documented in chart, Unable to obtain Exam I&O / VS 08/22/16 08/22/16 08/23/16 15:00 23:00 07:00 Intake Total 300 ml 1731 ml 695 ml Output Total 500 ml 1200 ml 550 ml Balance -200 ml 531 ml 145 ml Intake Oral 50 ml 90 ml IV Total 250 ml 1641 ml 695 ml Output Urine Total 500 ml 1000 ml 550 ml Stool Total 0 ml 200 ml 0 ml Vital Signs Date Time Temp Pulse Resp B/P Pulse Ox O2 Delivery O2 Flow Rate FiO2 08/23/16 08:15 100 Nasal Cannula 2.00 08/23/16 06:00 62 08/23/16 04:00 98.1 58 12 133/86 100 08/23/16 04:00 58 08/23/16 02:00 56 08/23/16 00:00 62 08/23/16 00:00 99.1 64 20 108/56 97 08/22/16 22:00 72 08/22/16 20:00 73 08/22/16 20:00 98.8 73 17 122/60 99 08/22/16 19:20 97 Nasal Cannula 2.00 08/22/16 18:00 98 08/22/16 16:00 64 08/22/16 16:00 98.2 64 14 119/68 100 08/22/16 14:00 66 08/22/16 12:00 66 08/22/16 12:00 98.6 70 14 136/84 95 08/22/16 10:00 66 Eye: PERRL, Other Respiratory: Coarse breath sounds Psychiatric: Other Exam Comments alert, , non-verbal, not following, resists pupillary exam, turns head side to side, no involuntary movements, face sym, mild spasticity in all 4 ext; legs weaker then arms, bradykinetic, msr 1-2+ Objective Micro and Labs Laboratory Tests Test 08/22/16 08/23/16 08:30 05:41 White Blood Count 4.6 Red Blood Count 3.92 Hemoglobin 12.7 Hematocrit 37.0 Mean Corpuscular Volume 94.3 Mean Corpuscular Hemoglobin 32.5 Mean Corpuscular Hemoglobin 34.4 Concent Red Cell Distribution Width 13.9 Platelet Count 153 Mean Platelet Volume 9.7 Neutrophils (%) (Auto) Lymphocytes (%) (Auto) Monocytes (%) (Auto) Eosinophils (%) (Auto) Basophils (%) (Auto) Neutrophils # (Auto) Lymphocytes # (Auto) Monocytes # (Auto) Eosinophils # (Auto) Basophils # (Auto) CBC Comment AUTO DIFF Differential Total Cells 100 Counted Neutrophils % (Manual) 38 Lymphocytes % 50 Monocytes % 6 Eosinophils % 6 Neutrophils # (Manual) 1.7 Differential Comment FINAL DIFF MANUAL Platelet Estimate NORMAL Platelet Morphology Comment NORMAL Sodium Level 141 Potassium Level 4.2 Chloride Level 109 Carbon Dioxide Level 27.1 Anion Gap 5 Blood Urea Nitrogen 7 Creatinine 0.87 Estimat Glomerular Filtration 107 Rate Random Glucose 77 Calcium Level 9.4 Phenytoin (Dilantin) Level 10.3 12.2 Valproic Acid (Depakene) Level 69 74 Date/Time Procedure Status Source Growth 08/20/16 19:30 Urine Culture - Final Complete Urine Catheterized Urine Pleomorphic Gram Positive Rods Viridans Streptococcus Grp Problem Qualifiers (1) Dementia: (2) TBI (traumatic brain injury): (3) Hypertension: Qualified Code: I10 - Essential hypertension Jeremy Ricks MD Aug 23, 2016 08:26
--- NOTE | 2016-08-23 09:21 | HHI.FPPN ---
Subjective Remarks Patient seen and examined this morning. Afebrile vital signs stable. No acute events overnight. Per neurology recommendations he is to be discharged home today. Review of systems unable to obtain due to baseline mental status (James Baker MD R2) Objective Vitals Vital Signs Date Time Temp Pulse Resp B/P Pulse Ox O2 Delivery O2 Flow Rate FiO2 08/23/16 08:15 100 Nasal Cannula 2.00 08/23/16 06:00 62 08/23/16 04:00 98.1 58 12 133/86 100 08/23/16 04:00 58 08/23/16 02:00 56 08/23/16 00:00 62 08/23/16 00:00 99.1 64 20 108/56 97 08/22/16 22:00 72 08/22/16 20:00 73 08/22/16 20:00 98.8 73 17 122/60 99 08/22/16 19:20 97 Nasal Cannula 2.00 08/22/16 18:00 98 08/22/16 16:00 64 08/22/16 16:00 98.2 64 14 119/68 100 08/22/16 14:00 66 08/22/16 12:00 66 08/22/16 12:00 98.6 70 14 136/84 95 08/22/16 10:00 66 I/O 08/22/16 08/22/16 08/22/16 08/23/16 08/23/16 08/23/16 07:00 15:00 23:00 07:00 15:00 23:00 Intake Total 590 ml 300 ml 1731 ml 695 ml Output Total 225 ml 500 ml 1200 ml 550 ml Balance 365 ml -200 ml 531 ml 145 ml Intake Oral 50 ml 90 ml IV Total 590 ml 250 ml 1641 ml 695 ml Output Urine Total 200 ml 500 ml 1000 ml 550 ml Stool Total 25 ml 0 ml 200 ml 0 ml (James Baker MD R2) Result Diagram: 08/22/1630 08/22/16 0830 Imaging Last Impressions Head CT 08/20/16 1230 Signed Impressions: Service Date/Time: Saturday, August 20, 2016 13:24 - CONCLUSION: 1. No acute hemorrhage or acute mass effect. 2. Stable large low density left subdural collection with shift to the right. 3. Extensive encephalomalacia again noted in the right middle territory. 4. Focal encephalomalacia in the involving the posterior left cerebellum. Karthik Mcneill MD Chest X-Ray 08/20/16 1230 Signed Impressions: Service Date/Time: Saturday, August 20, 2016 13:33 - CONCLUSION: No acute disease. Karthik Mcneill MD Brain MRI 08/20/16 0000 Signed Impressions: Service Date/Time: Saturday, August 20, 2016 15:45 - CONCLUSION: 1. No significant change compared to 12/16/2015. 2. Stable large left subdural hygroma measuring 3.1 cm in width and resulting in 9 mm of subfalcine herniation to the right. 3. Stable extensive encephalomalacia involving the right frontal, parietal, and temporal lobes and left temporal lobe. 4. Cerebral atrophy. 5. No acute infarct or acute hemorrhage. Demetrio Spencer MD EEG: No active seizures Objective Remarks O. CONSTITUTIONAL/GEN: normally nourished, in NAD. EYES: conjunctiva cortez. ENT: Mouth and pharynx normal. NECK: supple LUNGS: clear A-P, respiratory effort is normal. CARDIOVASCULAR: RR without murmur or gallop. No significant edema. PSYCH/MENTAL STATUS: Somnolent; will arouse to mild physical stimuli; non- verbal at this time. Medications and IVs Current Medications Medications (Trade) Dose Ordered Sig/Saundra Route Start Time Stop Time Status Last Admin (D5W-07/15 NS 1000 ml Inj) 1,000 ml @ 100 mls/hr Q10H IV 08/20/16 15:00 08/23/16 03:37 (NS Flush) 2 ml UNSCH PRN IVF 08/20/16 14:45 (NS Flush) 2 ml BID IVF 08/20/16 21:00 08/22/16 21:04 (Tylenol) 650 mg Q4H PRN PO 08/20/16 14:45 (Motrin) 600 mg Q8H PRN PO 08/20/16 14:45 (Dilantin Inj) 100 mg Q8H IVS 08/20/16 23:00 08/23/16 06:06 (Norvasc) 5 mg BID PO 08/20/16 21:00 Hold (Aspirin Chew) 162 mg DAILY CHEW 08/21/16 09:00 08/22/16 09:10 (Protonix) 20 mg DAILY PO 08/21/16 09:00 08/22/16 09:10 (Apresoline Inj) 10 mg Q30M PRN IV PUSH 08/20/16 17:45 08/20/16 23:23 (Heparin Inj) 5,000 units Q8HR SQ 08/20/16 22:00 08/23/16 06:06 (Depakote Er) 750 mg BID PO 08/20/16 21:00 Hold Miscellaneous Information Patient in critical care unit? Ass... Q361D XX 08/21/16 07:45 (Chlorhexidine 2% Cloth) 3 pack DAILY@04 TOP 08/22/16 04:00 08/26/16 04:01 08/23/16 03:37 Chlorhexidine Gluconate 3 pack 3 pack UNSCH PRN TOP 08/21/16 07:45 08/26/16 07:39 (Depacon Inj/NS Inj) 105 ml @ 105 mls/hr BID IV 08/21/16 10:00 08/22/16 21:03 (James Baker MD R2) A/P Assessment and Plan This a 61-year-old [place] male with a past history significant for CVA , epilepsy, hypertension, left subdural hygroma, subdural hematoma, traumatic brain injury, and bilateral upper extremity DVTs. Admitted for seizure like activity Discharge Planning Plan for discharge home today. (James Baker MD R2) Attending Attestation Case reviewed and discussed with the resident team. Agree with plan of care as discussed with me and documented in the resident note. (Dmitriy Waggoner MD) Problem List: (1) Seizures Status: Acute Plan: Patient with history of seizures. Recently had a decrease in his seizure medication valproic acid. His neurologist is Dr. Ricks who has been consulted. * Admitted to inpatient * Valproate 500mg BID IV * Dilantin 100 IV q8Hr * Lacosomide 250mg IV q 12hr * EEG: NO active seizures Discharge home on Depakote/Dilantin Follow up in 1-2 weeks (2) Hypertension Status: Chronic Plan: Long-standing history of hypertension * Continue home medication of amlodipine 5 mg by mouth twice a day * Hydralazine when necessary elevated blood pressure (3) History of CVA (cerebrovascular accident) Status: Acute Plan: History of CVA * Continue aspirin 162 mg (4) Hypernatremia Status: Resolved Plan: Found to be hypernatremic at 147 on admission. * Slowly correct with IV fluids (5) Deep vein thrombosis Status: Acute Plan: Currently not on any home medications * DVT prophylaxis with SCDs and heparin 5000 units every 8 (6) Nutrition, metabolism, and development symptoms Status: Acute Plan: Bed rest Puree diet Vitals every 4 Neuro checks every 4 Monitor electrolytes replace accordingly IV fluids: D5 half-normal saline DVT prophylaxis: SCD and heparin CODE STATUS: Full code Disposition: Pending neurology recommendations (James Baker MD R2) Problem Qualifiers (1) Hypertension: Qualified Code: I10 - Essential hypertension James Baker MD R2 Aug 23, 2016 09:21 Dmitriy Waggoner MD Aug 23, 2016 10:13
[2016-08-23] MEDS: VALPROATE INJ 500 MG in SODIUM CHLORIDE 0.9% INJ 100 ML IV SCH (09:25)
[2016-08-23] MEDS: PANTOPRAZOLE SOD 20 MG DELAYED RELEASE TAB PO SCH (09:25)
[2016-08-23] MEDS: ASPIRIN 81 MG CHEW TAB CHEW SCH (09:25)
[2016-08-23] MEDS: SODIUM CHLORIDE 0.9% FLUSH 5 ML FLUSH IVF SCH (09:25)
[2016-08-23] MEDS ORDERED: DILA125S PO (10:36)
--- NOTE | 2016-08-23 10:37 | HHI.DCPOC ---
Discharge Care Plan Diagnosis: (1) Seizures (2) Hypernatremia (3) History of CVA (cerebrovascular accident) (4) Status epilepticus Goals to Promote Your Health * To prevent worsening of your condition and complications * To maintain your health at the optimal level Take seizure medications as prescribed Directions to Meet Your Goals Take your medications as prescribed Follow your dietary instruction Follow activity as directed Keep your appointments as scheduled Take your immunizations and boosters as scheduled If your symptoms worsen call your PCP, if no PCP go to Urgent Care Center or Emergency Room Smoking is Dangerous to Your Health. Avoid second hand smoke Call the 24-hour hour crisis hotline for domestic abuse at James Baker MD R2 Aug 23, 2016 10:37
--- NOTE | 2016-08-23 10:40 | HHI.FF ---
Face to Face Verification Diagnosis: (1) left subdural hematoma (2) Seizures (3) History of CVA (cerebrovascular accident) (4) TBI (traumatic brain injury) (5) Status epilepticus (6) Dementia (7) Deep vein thrombosis (8) Encephalomalacia with cerebral infarction Physical Therapy Order: Evaluate and Treat Occupational Therapy Order: Evaluate and Treat Home Health Nursing Order: Medical education Signs/symptoms of disease process Canales catheter maintenance Home Health Aide Order: To Assist In: Bathing and personal care Teacher [employer] Education Order: To Evaluate: Living conditions/environment, Support services Order: To Provide: Long range planning I have seen patient Tacho Jimenez on 08/23/16. My clinical findings support the need for the requested home health care services because: Ltd mobility - disease progression Deconditioned w/ increased weakness Med compliance is questionable Limited ability to care for self Impaired cognition/judgement High risk of falls I certify that my clinical findings support that this patient is homebound because: Impaired cognitive ability/safety Unsafe to leave home unassisted Poor cardiac reserve James Baker MD R2 Aug 23, 2016 10:40
--- NOTE | 2016-08-23 10:47 | HHI.DS ---
Discharge Summary Admission Date Aug 20, 2016 at 14:14 Discharge Date: Aug 23, 2016 Admitting Diagnosis Status epilepticus (1) Seizures Diagnosis: Principal Plan: Patient with history of seizures. Recently had a decrease in his seizure medication valproic acid. His neurologist is Dr. Ricks who has been consulted. * Admitted to inpatient * Valproate 500mg BID IV * Dilantin 100 IV q8Hr * Lacosomide 250mg IV q 12hr * EEG: NO active seizures Discharge home on Depakote/Dilantin Follow up in 1-2 weeks (2) Hypertension Diagnosis: Secondary Plan: Long-standing history of hypertension * Continue home medication of amlodipine 5 mg by mouth twice a day * Hydralazine when necessary elevated blood pressure (3) History of CVA (cerebrovascular accident) Diagnosis: Secondary Plan: History of CVA * Continue aspirin 162 mg (4) Hypernatremia Diagnosis: Secondary Plan: Found to be hypernatremic at 147 on admission. * Slowly correct with IV fluids (5) Deep vein thrombosis Diagnosis: Secondary Plan: Currently not on any home medications * DVT prophylaxis with SCDs and heparin 5000 units every 8 (6) Nutrition, metabolism, and development symptoms Diagnosis: Secondary Plan: Bed rest Puree diet Vitals every 4 Neuro checks every 4 Monitor electrolytes replace accordingly IV fluids: D5 half-normal saline DVT prophylaxis: SCD and heparin CODE STATUS: Full code Disposition: Pending neurology recommendations [facility] Neurology Procedures EEG: No seizure activity Brief History Patient is asleep following multiple doses of Ativan at time of H&P Daughter's primary historian This a 61-year-old Linda male with a past history significant for CVA , epilepsy, hypertension, left subdural hygroma, subdural hematoma, traumatic brain injury, and bilateral upper extremity DVTs. Past surgical history significant for craniotomy. He is a patient of the neurologist Dr. Ricks. This morning the patient was getting a bath when he started to have a seizure. Head arms and legs would shake gets stiff and then shake again. This lasted for 3-4 minutes and he lost bladder function during this event. Once the events stopped using real tired and seemed drowsy. His eyes continue to stay off to the right. Daughter believes that his gaze is back to normal. She reports that his valproate dose was recently decreased by the neurologist. She says that at baseline he can speak but not in complete sentences. He speaks around words that he wants to say. He is not often able follow commands, though occasionally she says he does. Per discussion with the ED doc who had previously discussed with the neurologist he is nonverbal at baseline, unable to follow commands. CBC/BMP: 08/22/16 0830 08/22/16 0830 Significant Findings Laboratory Tests Test 08/20/16 08/20/16 08/20/16 08/20/16 12:50 13:35 19:30 23:55 Lymphocytes (%) (Auto) 52.9 % (9.0-44.0) Monocytes (%) (Auto) 11.2 % (0.0-8.0) Lymphocytes # (Auto) 5.4 TH/MM3 (1.0-4.8) Monocytes # (Auto) 1.1 TH/MM3 (0-0.9) Lymphocytes % 54 % (9-44) Sodium Level 147 MEQ/L (136-145) Chloride Level 115 MEQ/L (98-107) Carbon Dioxide Level 14.8 MEQ/L (21.0-32.0) Anion Gap 17 MEQ/L (5-15) Estimat Glomerular Filtration 69 ML/MIN (>89) Rate Random Glucose 115 MG/DL (74-106) Calcium Level 10.8 MG/DL (8.5-10.1) Ammonia 132 MCMOL/L 59 MCMOL/L (11-32) (11-32) Total Creatine Kinase 993 U/L (39-308) Activated Partial 22.2 SEC Thromboplast Time (24.3-30.1) Urine Occult Blood MOD (NEG) Urine WBC 7 /hpf (0-5) Test 08/21/16 08/22/16 05:25 08:30 Monocytes (%) (Auto) 10.7 % (0.0-8.0) Chloride Level 112 MEQ/L 109 MEQ/L (98-107) (98-107) Calcium Level 10.2 MG/DL (8.5-10.1) Ammonia 49 MCMOL/L (11-32) Phenytoin (Dilantin) Level 8.9 MCG/ML (10.0-20.0) Red Blood Count 3.92 MIL/MM3 (4.50-5.90) Hemoglobin 12.7 GM/DL (13.0-17.0) Hematocrit 37.0 % (39.0-51.0) Lymphocytes % 50 % (9-44) Eosinophils % 6 % (0-4) Neutrophils # (Manual) 1.7 TH/MM3 (1.8-7.7) Imaging Last Impressions Head CT 08/20/16 1230 Signed Impressions: Service Date/Time: Saturday, August 20, 2016 13:24 - CONCLUSION: 1. No acute hemorrhage or acute mass effect. 2. Stable large low density left subdural collection with shift to the right. 3. Extensive encephalomalacia again noted in the right middle territory. 4. Focal encephalomalacia in the involving the posterior left cerebellum. Karthik Mcneill MD Chest X-Ray 08/20/16 1230 Signed Impressions: Service Date/Time: Saturday, August 20, 2016 13:33 - CONCLUSION: No acute disease. Karthik Mcneill MD Brain MRI 08/20/16 0000 Signed Impressions: Service Date/Time: Saturday, August 20, 2016 15:45 - CONCLUSION: 1. No significant change compared to 12/16/2015. 2. Stable large left subdural hygroma measuring 3.1 cm in width and resulting in 9 mm of subfalcine herniation to the right. 3. Stable extensive encephalomalacia involving the right frontal, parietal, and temporal lobes and left temporal lobe. 4. Cerebral atrophy. 5. No acute infarct or acute hemorrhage. Demetrio Spencer MD PE at Discharge O. CONSTITUTIONAL/GEN: normally nourished, in NAD. EYES: conjunctiva cortez. ENT: Mouth and pharynx normal. NECK: supple LUNGS: clear A-P, respiratory effort is normal. CARDIOVASCULAR: RR without murmur or gallop. No significant edema. PSYCH/MENTAL STATUS: Somnolent; will arouse to mild physical stimuli; non- verbal at this time. Hospital Course Patient was admitted on 08/20/16 in a postictal state. Patient was evaluated by neurology and seizure activity was controlled with IV antiepileptic's. Patient was evaluated in the hospital with an EEG that showed no active seizures. Determined the patient was stable on the newly adjusted antiepileptic medications. Patient was discharged home on 08/23/16 with a higher dose of Depakote and Dilantin. Patient will be following up in 1-2 weeks with his neurologist Pt Condition on Discharge: Stable Discharge Disposition: Disch w/ Home Health Serv Discharge Instructions DIET: Follow Instructions for: As Tolerated, No Restrictions, Pureed (Wired Jaw ) Activities you can perform: Continue Bedrest Follow up Referrals: Neurology - 1 Week with Jeremy Ricks MD PCP Follow-up - 1 Week New Medications: Phenytoin Liq (Dilantin-125 Liq) 125 Mg/5 Ml Susp 100 MG PO Q8HR Control Seizures #237 Ref 0 ML Continued Medications: Amlodipine (Amlodipine) 5 Mg Tab 5 MG PO BID Blood Pressure Management #30 Ref 0 TAB Aspirin (Aspirin) 81 Mg Chew 162 MG CHEW DAILY Ref 0 TAB Lacosamide (Vimpat) 150 Mg Tab 150 MG PO DAILY Control Seizures #60 Ref 0 TAB Lacosamide (Vimpat) 200 Mg Tab 200 MG PO HS Control Seizures #60 Ref 0 TAB Lorazepam (Lorazepam) 1 Mg Tab 1 MG PO DAILY PRN ANXIETY Ref 0 TAB Omeprazole (Omeprazole) 20 Mg Tab 20 MG PO DAILY #30 Ref 0 TAB Valproic Acid Liq (Valproic Acid Liq) 250 Mg/5 Ml Syp 500 MG PO BID #300 Ref 0 ML James Baker MD R2 Aug 23, 2016 10:47
== END 2016-08-23 13:45 | disposition home health service (06) | DRG 101 ==
LOC: NEPE 12:15 → NEDH 14:14 → HIMN 08-21 06:15
PROVIDERS: ADMIT Family Medicine; ATTEND Family Medicine
DX: G40.901 Epilepsy, unspecified, not intractable, with status epilepticus (principal); G93.89 Other specified disorders of brain; E87.0 Hyperosmolality and hypernatremia; F03.90 Unspecified dementia, unspecified severity, without behavioral disturbance, psychotic disturbance, mood disturbance, and anxiety; R47.01 Aphasia; Z87.820 Personal history of traumatic brain injury; Z86.73 Personal history of transient ischemic attack (TIA), and cerebral infarction without residual deficits; I10 Essential (primary) hypertension; Z86.718 Personal history of other venous thrombosis and embolism; Z99.3 Dependence on wheelchair; Z23 Encounter for immunization
CPT/HCPCS: 70450; 70551; 71010; 76937; 80048; 80053; 80076; 80164; 80185; 80307; 81001; 82140; 82550; 82552; 85007; 85025; 85027; 85610; 85730; 87086; 87641; 90471; 90472; 90686; 90732; 93005; 95819; 96374; 96376; C9254; G0008; G0009; J0360; J1165; J1644; J1953; J2060; J7030; Q2009; Q2038

== ENCOUNTER 2016-08-30 12:33 | Emergency (ER) | payer MEDICARE, OTHER ==
[~2016-08-30] VITALS: Ht 182.9 cm; Wt 95.0 kg
[~2016-08-30 12:33] MED LIST changes: -AMLO5 PO; +AMLO5TAB2 PO; +ASPI81CH CHEW; +DILA125S PO; -GABA300C3 PO; -LIPI10TA PO; +LORA1TAB12 PO; -METO50TA PO; -PHEN100 PO; -RIVA20 PO; -VALP250 PO; +VALP250S2 PO; +VIMP150T PO; -VITA-83 PO
[2016-08-30 12:41] VITALS: BP 175/80; PULSE 90; RESP 16; TEMP 98.8; O2SAT 100
[2016-08-30] MEDS ORDERED: SODIUM CHLORIDE 0.9% FLUSH 5 ML FLUSH IVF PRN (13:00)
[2016-08-30 13:09] VITALS: O2SAT 99
--- NOTE | 2016-08-30 13:53 | RADRPT ---
EXAM DATE/TIME: 08/30/2016 13:34 [facility] COMPARISON: CT BRAIN W/O CONTRAST, August 20, 2016, 13:24. INDICATIONS : Altered mental status after multiple seizures today. RADIATION DOSE: 48.21 CTDIvol (mGy) MEDICAL HISTORY : Cerebrovascular disease. Seizures. Cardiovascular diseaseHypertension; DVT SURGICAL HISTORY : Subdural evacuations x 2. ENCOUNTER: Initial ACUITY: 1 day PAIN SCALE: Non-responsive LOCATION: cranial TECHNIQUE: Multiple contiguous axial images were obtained of the head. Using automated exposure control and adj ustment of the mA and/or kV according to patient size, radiation dose was kept as low as reasonably a chievable to obtain optimal diagnostic quality images. FINDINGS: The examination demonstrates a large area of encephalomalacia involving most of the right frontal lob e and portions of the right temporal lobe. There is encephalomalacic change within the left temporal lobe as well. There is a large hygromatous fluid collection seen along the left hemisphere. This is s imilar compared previous examination. Today's exam again demonstrates a proximally 7 mm of left-to-ri ght falcine shift. This is unchanged from prior. A large portion of this is likely secondary to the v olume loss on the right. The posterior fossa demonstrates encephalomalacic infarct in the left cerebellar hemisphere. This is unchanged from previous. CONCLUSION: 1. Stable exam compared to previous dated 08/20/16. 2. Large areas of encephalomalacia involving the right hemisphere, the left temporal lobe, the left c erebellar hemisphere. 3. Stable hygromatous fluid collection layering along the left frontal and parietal cortex. Demond Martinez MD on August 30, 2016 at 13:43 Board Certified Radiologist. This report was verified electronically.
[2016-08-30] MEDS ORDERED: SODIUM CHLOR 0.9% 1000 ML INJ 1,000 ML IV ONE ×2 (14:00)
[2016-08-30] MEDS ORDERED: LORazepam 2 MG/ML VIAL ONE (14:22)
[2016-08-30] MEDS ORDERED: LORazepam 2 MG/ML VIAL IV PUSH ONE (15:15)
[2016-08-30 15:21] LABS: ALKALINE PHOSPHATASE 110 U/L (45-117); ALT (GPT) 41 U/L (12-78); TOTAL BILIRUBIN ADULT 0.3 MG/DL (0.2-1.0)
[2016-08-30 15:24] LABS: ANION GAP 5 MEQ/L (5-15); BICARBONATE 30.9 MEQ/L (21.0-32.0); BLOOD UREA NITROGEN 10 MG/DL (7-18); CHLORIDE 108 MEQ/L (98-107); GLOMERULAR FILTRATION RATE 83 ML/MIN (>89); SODIUM (NA) 144 MEQ/L (136-145)
[2016-08-30 15:25] LABS: AST (GOT) 42 U/L (15-37); POTASSIUM 4.8 MEQ/L (3.5-5.1)
[2016-08-30 15:47] LABS: AUTOMATED NEUTROPHIL # 2.8 TH/MM3 (1.8-7.7); BASOPHIL % 0.3 % (0.0-2.0); EOSINOPHIL # 0.1 TH/MM3 (0-0.4); HEMATOCRIT 40.2 % (39.0-51.0); HEMO FLAGS DIFF FINAL; LYMPH % 44.3 % (9.0-44.0); LYMPHOCYTE # 3.1 TH/MM3 (1.0-4.8); MEAN CELL VOLUME 93.8 FL (80.0-100.0); MEAN CORPUSCULAR HEMOGLOBIN 32.1 PG (27.0-34.0); MEAN CORPUSCULAR HGB CONC 34.3 % (32.0-36.0); MONO % 14.9 % (0.0-8.0); NEUT % 39.5 % (16.0-70.0); PLATELET COUNT 197 TH/MM3 (150-450); RED BLOOD COUNT 4.29 MIL/MM3 (4.50-5.90); RED CELL DISTRIBUTION WIDTH 13.9 % (11.6-17.2); WHITE BLOOD COUNT 7.1 TH/MM3 (4.0-11.0)
[2016-08-30] MEDS ORDERED: TOPA25CA PO (17:19)
--- NOTE | 2016-08-30 17:19 | PD ---
HPI Chief Complaint: Seizure Time Seen by Provider: 12:45 Travel History International Travel<30 days: No Contact w/Intl Traveler<30days: No Traveled to known affect area: No History of Present Illness HPI Patient is a 61-year-old male presents emergency Department with possible absence seizure from Dr. Ken salas office. Patient has been followed by Dr. Ricks for recurrent seizures as well as stroke sequela. Patient apparently had absence seizure while in Dr. Ricks office today and he called 911 to have the patient transported to the emergency department for further evaluation. On arrival patient is unable to speak is GCS of 11(E-4,M-6,V-1). Review the patient's records shows that on his last discharge proximal 10 days ago patient was arousable to deep painful stimuli only so this is probably an improvement over his baseline neurologic status at least from past discharge. Patient's family states the patient had been able to speak prior to that admission. Patient states that he did miss 1 dose of Dilantin this morning because he had to go to the doctor's office but otherwise has been fairly faithful to it. No history of fevers. PFSH Past Medical History Medical History: Unable to Obtain Hx Anticoagulant Therapy: Yes Arthritis: No Asthma: No Autoimmune Disease: No Blood Disorders: No Anxiety: Yes Depression: Yes Heart Rhythm Problems: No Cancer: No Cardiac Catheterization: Yes Cardiovascular Problems: Yes High Cholesterol: Yes Chemotherapy: No Chest Pain: No Congestive Heart Failure: No COPD: No Cerebrovascular Accident: Yes Diabetes: No Diminished Hearing: No Deep Vein Thrombosis: Yes (BILATERAL ARMS) Endocrine: No Gastrointestinal Disorders: No (PEG TUBE) GERD: No Glaucoma: No Genitourinary: Yes Headaches: Yes Hepatitis: No Hiatal Hernia: No Heparin Induced Thrombocytopen: No Hypertension: Yes Immune Disorder: No Implanted Vascular Access Dvce: Yes Kidney Stones: No Musculoskeletal: No Neurologic: Yes Psychiatric: Yes (AFTER STROKE VERY FORGETFUL) Reproductive: No Respiratory: No Integumentary: Yes (PRESSURE ULCER ON POSTERIOR BUTTOCKS AND A GRANULATED WOUND ON ANTERIOR NEC) Immunizations Current: Yes Migraines: No Myocardial Infarction: Yes Pneumonia: Yes () Radiation Therapy: No Renal Failure: No Seizures: Yes Sickle Cell Disease: No Sleep Apnea: No Thyroid Disease: No Ulcer: No Tetanus Vaccination: Unknown Past Surgical History Surgical History: Unable to Obtain Abdominal Surgery: No AICD: No Arteriovenous Shunt: No Body Medical Devices: IVC FILTER Cardiac Surgery: No Ear Surgery: No Endocrine Surgery: No Eye Surgery: No Genitourinary Surgery: No Gynecologic Surgery: No Insulin Pump: No Joint Replacement: No Neurologic Surgery: Yes (Subdural evacuations X2) Oral Surgery: No Pacemaker: No Thoracic Surgery: No Other Surgery: Yes (CYSTOSCOPY) Social History Alcohol Use: No (UNABLE TO OBTAIN ) Tobacco Use: No (UNABLE TO OBTAIN ) Substance Use: No (UNABLE TO OBTAIN ) Allergies-Medications (Allergen,Severity, Reaction): Coded Allergies: *MDRO Multi-Drug Resistant Organism (Unverified Allergy, Unknown, 08/30/16) MRSA (sputum) - 12/08/13; 12/19/13; 01/15/14 ESBL (sputum) - 01/01/14 Reported Meds & Prescriptions Reported Meds & Active Scripts Active Topamax Sprinkle (Topiramate) 25 Mg Cap 50 Mg PO BID 30 Days Dilantin-125 Liq (Phenytoin) 125 Mg/5 Ml Susp 100 Mg PO Q8HR Reported Vimpat (Lacosamide) 200 Mg Tab 200 Mg PO HS Vimpat (Lacosamide) 150 Mg Tab 150 Mg PO DAILY Valproic Acid Liq 250 Mg/5 Ml Syp 500 Mg PO BID Omeprazole 20 Mg Tab 20 Mg PO DAILY Lorazepam 1 Mg Tab 1 Mg PO DAILY PRN Aspirin 81 Mg Chew 162 Mg CHEW DAILY Amlodipine (Amlodipine Besylate) 5 Mg Tab 5 Mg PO BID Review of Systems Except as stated in HPI: all other systems reviewed are Neg Physical Exam Narrative GENERAL: Well-developed well-nourished no apparent distress SKIN: Warm and dry. HEAD: Atraumatic. Normocephalic. EYES: Pupils equal and round. No scleral icterus. No injection or drainage. ENT: No nasal bleeding or discharge. Mucous membranes pink and moist. NECK: Trachea midline. No JVD. CARDIOVASCULAR: Regular rate and rhythm. No murmur appreciated. RESPIRATORY: No accessory muscle use. Clear to auscultation. Breath sounds equal bilaterally. GASTROINTESTINAL: Abdomen soft, non-tender, nondistended. Hepatic and splenic margins not palpable. MUSCULOSKELETAL: No obvious deformities. No clubbing. No cyanosis. No edema. NEUROLOGICAL: GCS of 11 as above, intermittent he follows commands in the right upper extremity, very reluctant to follow commands in the left upper extremity. Has intermittent contractures of the right and left upper extremity specimen trying to draw blood. Very difficult to examine cranial nerves but he does appear protecting his own airway. He did have one episode while I was examining him where he stared off into space with open eyes did not blink for some time. This could be consistent with Seizure Activity. No Generalized Seizure Activity Was Seen While He Was in the Emergency Department. PSYCHIATRIC: Appropriate mood and affect; insight and judgment normal. Data Data Last Documented VS Vital Signs Date Time Temp Pulse Resp B/P Pulse Ox O2 Delivery O2 Flow Rate FiO2 08/30/16 18:15 86 16 170/75 100 Nasal Cannula 2 08/30/16 12:41 98.8 Orders Complete Blood Count With Diff (08/30/16 12:59) Alcohol (Ethanol) (08/30/16 12:59) Phenytoin (Dilantin) (08/30/16 12:59) Valproic Acid (Depakene) (08/30/16 12:59) Drug Screen, Random Urine (08/30/16 12:59) Ct Brain W/O Iv Contrast(Rout) (08/30/16 ) Blood Glucose (08/30/16 12:59) Ecg Monitoring (08/30/16 12:59) Iv Access Insert/Monitor (08/30/16 12:59) Oximetry (08/30/16 12:59) Comprehensive Metabolic Panel (08/30/16 12:59) Sodium Chloride 0.9% Flush (Ns Flush) (08/30/16 13:00) Urinalysis - C+S If Indicated (08/30/16 12:59) Consult Vascular Access Team (08/30/16 ) Sodium Chlor 0.9% 1000 Ml Inj (Ns 1000 M (08/30/16 14:00) Sodium Chlor 0.9% 1000 Ml Inj (Ns 1000 M (08/30/16 14:00) Vascular Poc Ultrasound (08/30/16 ) Lorazepam Inj (Ativan Inj) (08/30/16 14:22) Lorazepam Inj (Ativan Inj) (08/30/16 15:15) Electrocardiogram (08/30/16 13:01) Topiramate (Topamax) (08/30/16 17:30) Labs Laboratory Tests Test 08/30/16 14:36 White Blood Count 7.1 TH/MM3 Red Blood Count 4.29 MIL/MM3 Hemoglobin 13.8 GM/DL Hematocrit 40.2 % Mean Corpuscular Volume 93.8 FL Mean Corpuscular Hemoglobin 32.1 PG Mean Corpuscular Hemoglobin 34.3 % Concent Red Cell Distribution Width 13.9 % Platelet Count 197 TH/MM3 Mean Platelet Volume 8.8 FL Neutrophils (%) (Auto) 39.5 % Lymphocytes (%) (Auto) 44.3 % Monocytes (%) (Auto) 14.9 % Eosinophils (%) (Auto) 1.0 % Basophils (%) (Auto) 0.3 % Neutrophils # (Auto) 2.8 TH/MM3 Lymphocytes # (Auto) 3.1 TH/MM3 Monocytes # (Auto) 1.1 TH/MM3 Eosinophils # (Auto) 0.1 TH/MM3 Basophils # (Auto) 0.0 TH/MM3 CBC Comment DIFF FINAL Differential Comment Sodium Level 144 MEQ/L Potassium Level 4.8 MEQ/L Chloride Level 108 MEQ/L Carbon Dioxide Level 30.9 MEQ/L Anion Gap 5 MEQ/L Blood Urea Nitrogen 10 MG/DL Creatinine 1.09 MG/DL Estimat Glomerular Filtration 83 ML/MIN Rate Random Glucose 69 MG/DL Calcium Level 11.0 MG/DL Total Bilirubin 0.3 MG/DL Aspartate Amino Transf 42 U/L (AST/SGOT) Alanine Aminotransferase 41 U/L (ALT/SGPT) Alkaline Phosphatase 110 U/L Total Protein 7.8 GM/DL Albumin 3.6 GM/DL Phenytoin (Dilantin) Level 15.5 MCG/ML Valproic Acid (Depakene) Level 89 MCG/ML Ethyl Alcohol Level LESS THAN 3 MG/DL [facility] Medical Decision Making Medical Screen Exam Complete: Yes Emergency Medical Condition: Yes Interpretation(s) EKG shows normal sinus rhythm normal axis and normal R-wave progression. Normal intervals and no concerning ST T changes. Q waves in 3 and aVF probable inferior myocardial infarct. This Is a borderline EKG. Differential Diagnosis Seizures, Intracranial Injury, electro-light abnormality, subtherapeutic antiepileptic levels. Narrative Course Patient was roomed in the emergency department, he was given 1 mg of Ativan IV for possible absence seizure. Patient's CAT scan was obtained and does show significant atrophy of the right hemisphere and has a chronic fluid accumulation on the left hemisphere with some midline shift probable consistent with a chronic subdural hematoma. Discussed with the patient's daughter they have tried to drain this before and have been unsuccessful. Patient's labs are reassuring, he is therapeutic on both Dilantin and valproic acid. Patient was discussed with Dr. Ricks who knows the patient well and states that if the patient is no longer having seizure activity could go home at the family's discretion. Family seems very attentive to the patient after discussing with them they would like the patient to go home. Dr. Ricks has made recommendations to me for Topamax 100 mg by mouth now and then 50 mg twice a day. I have discussed with the family regarding liquid prescriptions and they state that they have a pill grinder brake lining at home and this seems to be working for him just fine. The patient does appear nontoxic and I think he is stable for discharge at this time. On a side note the patient's CT examination suggested the patient is unlikely to speak at baseline given the massive amount of atrophy as well as subdural hematoma. This was discussed with the family and they are understanding. Discussed need follow-up with Dr. Ricks this week and they're agreeable. Diagnosis Primary Impression: Recurrent seizures Med/Other Pt SpecificInfo: Prescription(s) given Scripts Topiramate Sprinkle (Topamax Sprinkle)25 Mg Cap50 Mg PO BID 30 Days Ref 0 Prov:Demetrio Carter MD 08/30/16 Disposition: 01 DISCHARGE HOME Condition: Stable Demetrio Carter MD Aug 30, 2016 17:19
[2016-08-30] MEDS ORDERED: TOPIRAMATE 100 MG TAB PO ONE (17:30)
[2016-08-30 18:15] VITALS: BP 170/75; PULSE 86; RESP 16; O2SAT 100
--- NOTE | 2016-08-31 16:44 | EKG ---
Date Performed: 08/30/2016 Time Performed: 13:01:16 PTAGE: 61 years EKG: Sinus rhythm Small inferior Q waves of undetermined significance. When compared to previous tracing, no significa nt change. POSSIBLE INFERIOR MYOCARDIAL INFARCTION BORDERLINE ECG PREVIOUS TRACING : 08/30/2016 12.52.43 DOCTOR: Aaron Kim Interpretating Date/Time 08/31/2016 16:42:56
== END 2016-08-30 19:12 | disposition home or self-care (01) ==
LOC: NEPE 12:33
DX: R56.9 Unspecified convulsions (principal); Z79.01 Long term (current) use of anticoagulants; F41.8 Other specified anxiety disorders; E78.00 Pure hypercholesterolemia, unspecified; Z86.73 Personal history of transient ischemic attack (TIA), and cerebral infarction without residual deficits; Z86.718 Personal history of other venous thrombosis and embolism; I10 Essential (primary) hypertension; I25.2 Old myocardial infarction
CPT/HCPCS: 70450; 80053; 80164; 80185; 80320; 85025; 93005; 96361; 96374; 99284; J2060; J7030

== ENCOUNTER 2016-09-10 20:49 | Inpatient (IN) | payer MEDICARE, OTHER ==
[~2016-09-10] VITALS: Ht 185.4 cm; Wt 80.1 kg
[~2016-09-10 20:49] MED LIST changes: +TOPA25CA PO
[2016-09-10 20:55] VITALS: BP 151/96; PULSE 111; RESP 16; TEMP 100.9; O2SAT 100
[2016-09-10] MEDS ORDERED: SODIUM CHLOR 0.9% 1000 ML INJ 1,000 ML IV ONE ×3 (20:59)
[2016-09-10] MEDS ORDERED: VANCOMYCIN INJ 1,000 MG in SODIUM CHLOR 0.9% 250 ML INJ 250 ML IV STA (20:59)
[2016-09-10] MEDS ORDERED: CEFEPIME INJ 2,000 MG in SODIUM CHLORIDE 0.9% INJ 100 ML IV STA (20:59)
--- NOTE | 2016-09-10 21:13 | PD ---
HPI Chief Complaint: Altered Mental Status Time Seen by Provider: 20:59 Travel History International Travel<30 days: No Contact w/Intl Traveler<30days: No Traveled to known affect area: No History of Present Illness HPI The patient is a 61 year old male who presents to the [facility] emergency department with a history of altered mental status, lethargy that reportedly according to ambulance services have been going on for a week. This is what ambulance services were told on their arrival. They were also told that the patient has not been taking his medications. The patient's blood sugar prior to arrival was 169, pulse was sinus tach at 110 with a blood pressure 120/80. He palpated to be warm to the touch and seemed to have increased secretions in the back of his throat that was suctioned by ambulance services. The patient on arrival spontaneously opens his eyes, however he does not answer any questions or follow any commands. The patient has evidence of previously being trached and having a feeding tube placed previously. According to ambulance services his recent history has been complicated by being in the emergency department and being diagnosed with new-onset seizure and urinary tract infection on August 20 and he also has a prior history of stroke. Unfortunately the patient himself is not able to provide any history at this time. The patient has yellow fluid noted on the left side of his goetz and spots of this on his clothing that appear to be bilious emesis. The rest of the patient's history will be obtained from reviewing the electronic medical record as well as further discussion with the patient's family. When the family arrived, the story that was provided by them was quite different from what was provided by ambulance services. His reports that he has not been eating or drinking well for the last week. She reports that he has also been constipated although she did given an enema without any bowel movement production subsequent to that. She reports that he has not been vomiting. She reports that the yellow fluid on the side of his goetz is related to his Azo for a urinary tract infection. She reports that he has been taking his medication regularly. The only dose that he did not take his evening dose tonight. She reports that over the last week he has been having a cough and congestion. She called ambulance services this evening when he seemed to have more congestion and shortness of breath. She reports that he has had a rattling in his chest associated with the chest congestion. She reports that he's had a subjective fever yesterday and today. She reports that her thermometer is broken. [facility], LAT[facility] Past Medical History Narrative Medical The patient's past medical history is significant for a prior stroke, hypertension, recent diagnosis of the seizure, urinary tract infection. After reviewing the patient's electronic medical records the patient also has a history of status epilepticus requiring admission early in August, history of a left subdural hygroma, subdural hematoma, history of traumatic brain injury, bilateral upper extremity DVTs, hypertension. According to the record, the patient is nonverbal at his baseline and unable to follow commands due to prior CVA and traumatic brain injury. The patient is cared for by his at home. Hx Anticoagulant Therapy: Yes Arthritis: No Asthma: No Autoimmune Disease: No Blood Disorders: No Anxiety: Yes Depression: Yes Heart Rhythm Problems: No Cancer: No Cardiac Catheterization: Yes Cardiovascular Problems: Yes High Cholesterol: Yes Chemotherapy: No Chest Pain: No Congestive Heart Failure: No COPD: No Cerebrovascular Accident: Yes Diabetes: No Diminished Hearing: No Deep Vein Thrombosis: Yes (BILATERAL ARMS) Endocrine: No Gastrointestinal Disorders: No (PEG TUBE) GERD: No Glaucoma: No Genitourinary: Yes Headaches: Yes Hepatitis: No Hiatal Hernia: No Heparin Induced Thrombocytopen: No Hypertension: Yes Immune Disorder: No Implanted Vascular Access Dvce: Yes Kidney Stones: No Musculoskeletal: No Neurologic: Yes Psychiatric: Yes (AFTER STROKE VERY FORGETFUL) Reproductive: No Respiratory: No Integumentary: Yes (PRESSURE ULCER ON POSTERIOR BUTTOCKS AND A GRANULATED WOUND ON ANTERIOR NEC) Immunizations Current: Yes Migraines: No Myocardial Infarction: Yes Pneumonia: Yes () Radiation Therapy: No Renal Failure: No Seizures: Yes Sickle Cell Disease: No Sleep Apnea: No Thyroid Disease: No Ulcer: No Past Surgical History Narrative Surgical The patient's past surgical history is significant for a feeding tube placement , craniotomy, tracheostomy. Abdominal Surgery: No AICD: No Arteriovenous Shunt: No Body Medical Devices: IVC FILTER Cardiac Surgery: No Ear Surgery: No Endocrine Surgery: No Eye Surgery: No Genitourinary Surgery: No Gynecologic Surgery: No Insulin Pump: No Joint Replacement: No Neurologic Surgery: Yes (Subdural evacuations X2) Oral Surgery: No Pacemaker: No Thoracic Surgery: No Other Surgery: Yes (CYSTOSCOPY) Social History Alcohol Use: No (UNABLE TO OBTAIN ) Tobacco Use: No (UNABLE TO OBTAIN ) Substance Use: No (UNABLE TO OBTAIN ) Allergies-Medications (Allergen,Severity, Reaction): Coded Allergies: *MDRO Multi-Drug Resistant Organism (Unverified Allergy, Unknown, 09/10/16) MRSA (sputum) - 12/08/13; 12/19/13; 01/15/14 ESBL (sputum) - 01/01/14 Reported Meds & Prescriptions Reported Meds & Active Scripts Active Topamax Sprinkle (Topiramate) 25 Mg Cap 50 Mg PO BID 30 Days Dilantin-125 Liq (Phenytoin) 125 Mg/5 Ml Susp 100 Mg PO Q8HR Reported Vimpat (Lacosamide) 200 Mg Tab 200 Mg PO HS Vimpat (Lacosamide) 150 Mg Tab 150 Mg PO DAILY Valproic Acid Liq 250 Mg/5 Ml Syp 500 Mg PO BID Omeprazole 20 Mg Tab 20 Mg PO DAILY Lorazepam 1 Mg Tab 1 Mg PO DAILY PRN Aspirin 81 Mg Chew 162 Mg CHEW DAILY Amlodipine (Amlodipine Besylate) 5 Mg Tab 5 Mg PO BID Review of Systems ROS Limitations: Clinical Condition, Altered Mental Status, Poor Historian Gastrointestinal: Positive: Vomiting Neurologic: Positive: Change in Mentation Physical Exam Narrative General: The patient is a well-developed well-nourished male with a decreased level of consciousness, intermittently spontaneously opening his eyes and tracking with his vision, however otherwise unresponsive verbally except to occasionally moan. He does not follow any commands. Head and Neck exam: Head is normocephalic atraumatic. Eyes: Pupils are equal round and reactive to light. The patient is uncooperative with formal testing of his extraocular motion. Nose: Midline septum with pink mucous membranes Mouth: Dentition unremarkable. Moist mucus membranes. Posterior oropharynx is not erythematous. No tonsillar hypertrophy. Uvula midline. Airway patent. The patient has a positive gag reflex noted. Neck: No palpable lymphadenopathy. No nuchal rigidity. No thyromegaly. Cardiovascular: Sinus tachycardia in the low 100s without murmurs, gallops, or rubs. No pulse deficit to the extremities and simultaneous auscultation and palpation of his radial artery. Lungs: Clear to auscultation bilaterally. With occasional rhonchi audible in bilateral lung hernandez. Abdomen: Soft, without tenderness to palpation in all 4 quadrants of the abdomen. No guarding, rebound, or rigidity. Normal bowel sounds are audible. No tenderness on palpation of McBurney's point. Negative Crews's sign. Extremities: No clubbing, cyanosis, or edema. 2+ pulses in all 4 extremities. No calf tenderness on palpation. Back: No spinous process tenderness to palpation. No costovertebral angle tenderness to palpation. Neurologic Exam: The patient is uncooperative with formal neurologic testing. The patient has no obvious facial asymmetry. The patient appears to be drowsy on examination. The patient does however spontaneously open his eyes and look around the room. The patient has no motor activity noted. Skin Exam: No rash noted. Intact skin that is warm and dry. Data Data Last Documented VS Vital Signs Date Time Temp Pulse Resp B/P Pulse Ox O2 Delivery O2 Flow Rate FiO2 09/10/16 22:47 99 18 167/71 96 Room Air 09/10/16 20:55 100.9 Orders Electrocardiogram (09/10/16 20:59) Complete Blood Count With Diff (09/10/16 20:59) Comprehensive Metabolic Panel (09/10/16 20:59) Prothrombin Time / Inr (Pt) (09/10/16 20:59) Act Partial Throm Time (Ptt) (09/10/16 20:59) Lactic Acid Sepsis Protocol (09/10/16 20:59) Magnesium (Mg) (09/10/16 20:59) Lipase (09/10/16 20:59) Ckmb (Isoenzyme) Profile (09/10/16 20:59) Troponin I (09/10/16 20:59) Urinalysis - C+S If Indicated (09/10/16 20:59) Blood Culture (09/10/16 20:59) Chest, Single Ap (09/10/16 20:59) Blood Glucose (09/10/16 20:59) Ecg Monitoring (09/10/16 20:59) Iv Access Insert/Monitor (09/10/16 20:59) Oximetry (09/10/16 20:59) Oxygen Administration (09/10/16 20:59) Ct Brain W/O Iv Contrast(Rout) (09/10/16 20:59) Vancomycin Inj (Vancomycin Inj) (09/10/16 20:59) Cefepime Inj (Maxipime Inj) (09/10/16 20:59) Sodium Chlor 0.9% 1000 Ml Inj (Ns 1000 M (09/10/16 20:59) Sodium Chlor 0.9% 1000 Ml Inj (Ns 1000 M (09/10/16 20:59) Sodium Chlor 0.9% 1000 Ml Inj (Ns 1000 M (09/10/16 20:59) C-Reactive Protein (Crp) (09/10/16 20:59) Ammonia (09/10/16 20:59) Thyroid Stimulating Hormone (09/10/16 20:59) Drug Screen, Random Urine (09/10/16 20:59) B-Type Natriuretic Peptide (09/10/16 20:59) ^ External / Condom Catheter (09/10/16 20:59) Naloxone Inj (Narcan Inj) (09/10/16 21:15) Valproic Acid (Depakene) (09/10/16 21:13) Phenytoin (Dilantin) (09/10/16 21:13) Lactulose Liq (Lactulose Liq) (09/10/16 23:00) CKMB (09/10/16 21:25) CKMB% (09/10/16 21:25) Admit Order (Ed Use Only) (09/10/16 23:14) Labs Laboratory Tests Test 09/10/16 21:25 Prothrombin Time 14.1 SEC Prothromb Time International 1.3 RATIO Ratio Activated Partial 26.8 SEC Thromboplast Time Sodium Level 156 MEQ/L Potassium Level 4.0 MEQ/L Chloride Level 121 MEQ/L Carbon Dioxide Level 26.0 MEQ/L Anion Gap 9 MEQ/L Blood Urea Nitrogen 45 MG/DL Creatinine 1.86 MG/DL Estimat Glomerular Filtration 45 ML/MIN Rate Random Glucose 196 MG/DL Lactic Acid Level 2.6 mmol/L Calcium Level 11.5 MG/DL Magnesium Level 2.6 MG/DL Total Bilirubin 0.4 MG/DL Aspartate Amino Transf 46 U/L (AST/SGOT) Alanine Aminotransferase 40 U/L (ALT/SGPT) Alkaline Phosphatase 104 U/L Ammonia 88 MCMOL/L Total Creatine Kinase 1796 U/L Creatine Kinase MB 1.5 NG/ML Creatine Kinase MB % 0.1 % Troponin I 0.02 NG/ML C-Reactive Protein 19.00 MG/DL B-Type Natriuretic Peptide 21 PG/ML Total Protein 8.1 GM/DL Albumin 3.1 GM/DL Lipase 106 U/L Thyroid Stimulating Hormone 1.040 uIU/ML 3rd Gen Phenytoin (Dilantin) Level 17.9 MCG/ML Valproic Acid (Depakene) Level 55 MCG/ML White Blood Count 10.3 TH/MM3 Red Blood Count 4.97 MIL/MM3 Hemoglobin 15.9 GM/DL Hematocrit 48.2 % Mean Corpuscular Volume 97.1 FL Mean Corpuscular Hemoglobin 31.9 PG Mean Corpuscular Hemoglobin 32.9 % Concent Red Cell Distribution Width 13.8 % Platelet Count 220 TH/MM3 Mean Platelet Volume 10.3 FL Neutrophils (%) (Auto) 69.8 % Lymphocytes (%) (Auto) 19.7 % Monocytes (%) (Auto) 9.9 % Eosinophils (%) (Auto) 0.3 % Basophils (%) (Auto) 0.3 % Neutrophils # (Auto) 7.2 TH/MM3 Lymphocytes # (Auto) 2.0 TH/MM3 Monocytes # (Auto) 1.0 TH/MM3 Eosinophils # (Auto) 0.0 TH/MM3 Basophils # (Auto) 0.0 TH/MM3 CBC Comment DIFF FINAL Differential Comment [facility] Medical Decision Making Medical Screen Exam Complete: Yes Emergency Medical Condition: Yes Medical Record Reviewed: Yes Interpretation(s) Laboratory Tests Test 09/10/16 21:25 White Blood Count 10.3 TH/MM3 Red Blood Count 4.97 MIL/MM3 Hemoglobin 15.9 GM/DL Hematocrit 48.2 % Mean Corpuscular Volume 97.1 FL Mean Corpuscular Hemoglobin 31.9 PG Mean Corpuscular Hemoglobin 32.9 % Concent Red Cell Distribution Width 13.8 % Platelet Count 220 TH/MM3 Mean Platelet Volume 10.3 FL Neutrophils (%) (Auto) 69.8 % Lymphocytes (%) (Auto) 19.7 % Monocytes (%) (Auto) 9.9 % Eosinophils (%) (Auto) 0.3 % Basophils (%) (Auto) 0.3 % Neutrophils # (Auto) 7.2 TH/MM3 Lymphocytes # (Auto) 2.0 TH/MM3 Monocytes # (Auto) 1.0 TH/MM3 Eosinophils # (Auto) 0.0 TH/MM3 Basophils # (Auto) 0.0 TH/MM3 CBC Comment DIFF FINAL Differential Comment Prothrombin Time 14.1 SEC Prothromb Time International 1.3 RATIO Ratio Activated Partial 26.8 SEC Thromboplast Time Sodium Level 156 MEQ/L Potassium Level 4.0 MEQ/L Chloride Level 121 MEQ/L Carbon Dioxide Level 26.0 MEQ/L Anion Gap 9 MEQ/L Blood Urea Nitrogen 45 MG/DL Creatinine 1.86 MG/DL Estimat Glomerular Filtration 45 ML/MIN Rate Random Glucose 196 MG/DL Lactic Acid Level 2.6 mmol/L Calcium Level 11.5 MG/DL Magnesium Level 2.6 MG/DL Total Bilirubin 0.4 MG/DL Aspartate Amino Transf 46 U/L (AST/SGOT) Alanine Aminotransferase 40 U/L (ALT/SGPT) Alkaline Phosphatase 104 U/L Ammonia 88 MCMOL/L Total Creatine Kinase 1796 U/L Troponin I 0.02 NG/ML C-Reactive Protein 19.00 MG/DL B-Type Natriuretic Peptide 21 PG/ML Total Protein 8.1 GM/DL Albumin 3.1 GM/DL Lipase 106 U/L Thyroid Stimulating Hormone 1.040 uIU/ML 3rd Gen Phenytoin (Dilantin) Level 17.9 MCG/ML Valproic Acid (Depakene) Level 55 MCG/ML Last Impressions Head CT 09/10/[id number] Signed Impressions: Service Date/Time: Saturday, September 10, 2016 21:39 - CONCLUSION: No significant change compared to prior study. No evidence of acute infarct or hemorrhage. Andrew Mata MD Chest X-Ray 09/10/[id number] Signed Impressions: Service Date/Time: Saturday, September 10, 2016 21:21 - CONCLUSION: No acute disease. Andrew Mata MD Differential Diagnosis Metabolic encephalopathy, versus hepatic encephalopathy, versus sepsis, versus intracranial abnormality, versus urinary tract infection, versus medication side effect, versus oversedation with medications Narrative Course During the course of the patients emergency department visit, the patients history, examination, and differential diagnosis were reviewed with the patient. The patient had IV access obtained and blood work sent for analysis. The patient was placed on a cardiac/vascular sonographer with oximetry and blood pressure monitoring. The patient was provided normal saline IV fluids, vancomycin 1 g IV, cefepime 2 g IV. The patient will be given a trial of Narcan 0.4 mg IV. The patient's blood sugar will be rechecked. According to ambulance services it was 169 prior to arrival. The patients laboratory studies were reviewed and remarkable for a white count of 10.3, hemoglobin 15.9, platelets 220, with 9.9 monocytes. CMP is remarkable for sodium of 156, chloride of 121 suggestive of dehydration, BUN 45, creatinine 1.86 when compared to previously is acutely elevated from 10 and 1.09 respectively, INR is 1.3, PT 14.1, PTT 26.8, lactic acid is 2.6 this will be repeated in 2 hours, calcium is 11.5, magnesium 2.5, glucose 195, CPK is 1796 , troponin I 0.09, C-reactive protein 19, BNP 21, TSH 1.04, Dilantin and valproic acid level is therapeutic. Ammonia level is 88. Radiology studies were reviewed and remarkable for a chest x-ray that shows no acute abnormality. CT scan of the brain shows no significant change compared to prior studies, no evidence of acute infarct or hemorrhage. The patient will be admitted to the hospital for hepatic encephalopathy status post treatment with the first dose of lactulose in the emergency department, rhabdomyolysis, dehydration with acute renal failure. The patient's family refuses to have a catheter placed and his bladder as he is very difficult to place a catheter in. A condom catheter was placed. The patients results were discussed with the patient, including the plan of care. I explained that further testing and/ or monitoring is indicated based on the patients history, examination, and/ or laboratory findings. Therefore, I recommended admission for additional evaluation. The patient expressed understanding and was agreeable with this plan. The patient was admitted to the hospital in guarded condition and sent to a bed under the care of the [facility] service. Physician Communication Physician Communication The patient's case will be discussed with Dr. Reardon regarding admission. Diagnosis Primary Impression: Hepatic encephalopathy Additional Impressions: Altered mental status Qualified Code: R40.0 - Somnolence Rhabdomyolysis Qualified Code: M62.82 - Non-traumatic rhabdomyolysis Acute renal failure Qualified Code: N17.9 - Acute renal failure, unspecified acute renal failure type Dehydration Admitting Information Admitting Physician Requests: Admit Eden Chauhan MD Sep 10, 2016 21:13
[2016-09-10] MEDS ORDERED: NALOXONE HCL 0.4 MG/ML AMP IV PUSH ONE (21:15)
[2016-09-10 21:33] VITALS: BP 147/91; PULSE 106; RESP 16; O2SAT 98; O2SAT 99
--- NOTE | 2016-09-10 21:48 | RADRPT ---
EXAM DATE/TIME: 09/10/2016 21:21 [facility] COMPARISON: CHEST SINGLE AP, August 20, 2016, 13:33. INDICATIONS : Shortness of breath. MEDICAL HISTORY : Non-responsive SURGICAL HISTORY : Non-responsive ENCOUNTER: Initial ACUITY: 1 day PAIN SCORE: Non-responsive. LOCATION: Bilateral chest FINDINGS: A single view of the chest demonstrates the lungs to be symmetrically aerated without evidence of mas s, infiltrate or effusion. The cardiomediastinal contours are unremarkable. Osseous structures are intact. CONCLUSION: No acute disease. Andrew Mata MD on September 10, 2016 at 21:47 Board Certified Radiologist. This report was verified electronically.
[2016-09-10 22:02] LABS: AUTOMATED NEUTROPHIL # 7.2 TH/MM3 (1.8-7.7); BASOPHIL % 0.3 % (0.0-2.0); EOSINOPHIL % 0.3 % (0.0-4.0); HEMATOCRIT 48.2 % (39.0-51.0); HEMO FLAGS DIFF FINAL; LYMPH % 19.7 % (9.0-44.0); MEAN CELL VOLUME 97.1 FL (80.0-100.0); MEAN CORPUSCULAR HEMOGLOBIN 31.9 PG (27.0-34.0); MEAN CORPUSCULAR HGB CONC 32.9 % (32.0-36.0); MONO % 9.9 % (0.0-8.0); NEUT % 69.8 % (16.0-70.0); PLATELET COUNT 220 TH/MM3 (150-450); RED BLOOD COUNT 4.97 MIL/MM3 (4.50-5.90); RED CELL DISTRIBUTION WIDTH 13.8 % (11.6-17.2); WHITE BLOOD COUNT 10.3 TH/MM3 (4.0-11.0)
--- NOTE | 2016-09-10 22:11 | RADRPT ---
EXAM DATE/TIME: 09/10/2016 21:39 [facility] COMPARISON: CT BRAIN W/O CONTRAST, August 30, 2016, 13:34. INDICATIONS : Altered mental status. RADIATION DOSE: 56.35 CTDIvol (mGy) MEDICAL HISTORY : Stroke. SURGICAL HISTORY : None. ENCOUNTER: Initial ACUITY: 1 day PAIN SCALE: Non-responsive LOCATION: cranial TECHNIQUE: Multiple contiguous axial images were obtained of the head. Using automated exposure control and adj ustment of the mA and/or kV according to patient size, radiation dose was kept as low as reasonably a chievable to obtain optimal diagnostic quality images. FINDINGS: No significant change is noted in the appearance of brain compared to recent study on 08/30/2016. Severe encephalomalacia is identified throughout the right frontal, right temporal, right parietal an d left temporal lobes. There are no findings to suggest an acute infarct or hemorrhage. A large left-sided subdural hygroma is unchanged in appearance. Significant volume loss with enlargement of the ventricles is noted. CONCLUSION: No significant change compared to prior study. No evidence of acute infarct or hemorrhage. Andrew Mata MD on September 10, 2016 at 22:06 Board Certified Radiologist. This report was verified electronically.
[2016-09-10 22:19] LABS: APTT (PATIENT) 26.8 SEC (24.3-30.1); INTERNATIONAL NORMALIZED RATIO 1.3 RATIO; PROTHROMBIN TIME - PATIENT 14.1 SEC (9.8-11.6)
[2016-09-10 22:47] VITALS: BP 167/71; PULSE 99; RESP 18; O2SAT 96
[2016-09-10 22:49] LABS: ALKALINE PHOSPHATASE 104 U/L (45-117); ALT (GPT) 40 U/L (12-78); ANION GAP 9 MEQ/L (5-15); AST (GOT) 46 U/L (15-37); BLOOD UREA NITROGEN 45 MG/DL (7-18); CHLORIDE 121 MEQ/L (98-107); CREATINE KINASE 1796 U/L (39-308); GLOMERULAR FILTRATION RATE 45 ML/MIN (>89); MAGNESIUM 2.6 MG/DL (1.5-2.5); TOTAL BILIRUBIN ADULT 0.4 MG/DL (0.2-1.0)
[2016-09-10] MEDS ORDERED: LACTULOSE SYRUP 20 GM/30 ML CUP PO ONE (23:00)
[2016-09-10 23:03] LABS: SODIUM (NA) 156 MEQ/L (136-145)
[2016-09-10 23:20] LABS: CKMB 1.5 NG/ML (0.5-3.6)
[2016-09-10 23:51] LABS: LACTIC ACID GHOST NOT REPORTABLE
[2016-09-11] VITALS (12 sets, daily range): BP systolic 130–187; BP diastolic 76–93; PULSE 87–100; RESP 16–20; TEMP 97.7–98.7; O2SAT 94–100
[2016-09-11 01:42] LABS: POTASSIUM 3.8 MEQ/L (3.5-5.1)
[2016-09-11] MEDS ORDERED: SODIUM CHLORIDE 0.9% FLUSH 5 ML FLUSH FLUSH PRN (01:45)
[2016-09-11] MEDS ORDERED: NALOXONE HCL 0.4 MG/ML AMP IV PRN (01:45)
[2016-09-11 02:06] LABS: CKMB 1.2 NG/ML (0.5-3.6)
[2016-09-11] MEDS ORDERED: DEXTROSE 5% IN WATE 1000ML INJ 1,000 ML IV SCH (02:15)
[2016-09-11 02:30] LABS: BLOOD, URINE NEG (NEG); GLUCOSE,URINE NEG (NEG); HYALINE CAST, URINE 2 /lpf (RARE); KETONE, URINE NEG (NEG); NITRITE,URINE NEG (NEG); PH, URINE 6.5 (5.0-8.5); SQUAMOUS EPITHELIAL CELL URINE <1 /hpf (0-5); URINE COLOR DARK-YELLOW (YELLW/STRAW)
[2016-09-11 02:31] LABS: COMMENT (UR) CATH-CULTURE IND; CULTURE IF INDICATED CATH CULTURE IND
[2016-09-11 02:34] LABS: AMPHETAMINE, URINE NEG (NEG); BARBITURATES, URINE NEG (NEG); COCAINE, URINE NEG (NEG)
[2016-09-11] MEDS ORDERED: MORPHINE SULFATE 4 MG/ML INJ IV PUSH ONE (04:30)
[2016-09-11 06:25] LABS: POTASSIUM 3.1 MEQ/L (3.5-5.1)
[2016-09-11] MEDS ORDERED: Vancomycin Consult Pharmacy 1 EA OTHER SCH (06:45)
[2016-09-11 07:02] LABS: CKMB 0.6 NG/ML (0.5-3.6)
[2016-09-11 07:04] LABS: CALCIUM-PROTEIN CORRECTED 6.8 MG/DL (8.5-10.1)
[2016-09-11] MEDS ORDERED: DEXTROSE 50% IN WATER 50 ML VIAL(D50) IV PUSH PRN (07:30)
[2016-09-11] MEDS ORDERED: GLUCAGON 1 MG/ML VIAL OTHER PRN (07:30)
[2016-09-11] MEDS ORDERED: SODIUM CHLOR 0.45% 1000 ML INJ 1,000 ML IV SCH (07:30)
[2016-09-11] MEDS ORDERED: POTASSIUM CHLOR 20 MEQ PREMIX 100 ML IV SCH (07:30)
--- NOTE | 2016-09-11 07:38 | HHI.HP ---
[facility] Alida Galicia DO Admission Diagnosis Dehydration, Rhabdomyolysis, ARF, Hepatic encephalopathy Diagnoses: Chief Complaint: Not able to give specific complaints Travel History International Travel<30 Days: No Contact w/Intl Traveler <30 Da: No Traveled to Known Affected Are: No History of Present Illness History from patient's , ER physician communication, and review of medical records. Patient's is at the bedside. She stated that patient is usually not able to give history. Patient can speak at baseline although the speech is incomprehensible and she can usually understand him. However for the past 3 weeks or so, patient has been declining slowly. She stated that patient has been more and more sleeping, noncommunicative, and mostly lying in bed. His baseline usually is that he would sit up on the wheelchair with her and eat by himself and feed himself. He usually eats regular consistency meals. Patient's stated that patient was also constipated for the past 1 week. She denies any melena or hematemesis. However noted some blood in his penis which she was thinking maybe secondary to urinary tract infection. Denies any jimmy blood in his toilet bowl. Patient is usually incontinent with urine and stool. stated that with this mental confusion and lethargy, patient was also noted to have some breathing pattern and which she states happened in the middle of the night where he would stop breathing and then to breathe all over again suddenly. She believes that he has subjective fevers. She did not measure it. Review of Systems ROS Limitations: Altered Mental Status, Speech Impaired (review of system is limited since patient cannot give history at all. Most review of systems is obtained from as mentioned in HPI.) Past Family Social History Past Medical History Hypertension CADwife was told by side seam envelope machine operator on routine checkup/EKGs. No PCI. COPD Suspects underlying liver disease History of elevated ammonia History of DVTbilateral upper extremitiesreport that repeat ultrasound done about 3 months ago was negative. He was therefore taken out of anticoagulation then. 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 Patient's nurse did go through that with patient's area Allergies: Coded Allergies: *MDRO Multi-Drug Resistant Organism (Unverified Allergy, Unknown, 09/10/16) MRSA (sputum) - 12/08/13; 12/19/13; 01/15/14 ESBL (sputum) - 01/01/14 Family History Hodgkin's lymphoma in patient's father and brother. Mom had cervical cancer. Social History Used to smoke cigarettes for about a pack a day. Used to drink alcohol at least about 6 beers a day. But quit about 4 years ago. Denies any IV drug abuse. Physical Exam Vital Signs Vital Signs Date Time Temp Pulse Resp B/P Pulse Ox O2 Delivery O2 Flow Rate FiO2 09/11/16 05:39 98.1 89 16 143/78 98 Room Air 09/11/16 05:02 187/77 09/11/16 03:35 99 18 167/78 99 Room Air 09/11/16 01:35 98.1 99 18 170/81 96 Room Air 09/10/16 22:47 99 18 167/71 96 Room Air 09/10/16 21:33 98 Room Air 09/10/16 21:33 99 Room Air 09/10/16 21:33 106 16 147/91 98 Room Air 09/10/16 20:55 100.9 111 16 151/96 100 Physical Exam GENERAL: This is elderly gentleman, in no acute distress, Looks chronically ill. Opens his eyes to verbal stimuli. However noncommunicative SKIN: No rashes, ecchymoses or lesions. Cool and dry. HEAD: Atraumatic. Normocephalic. EYES: No scleral icterus. No injection or drainage. ENT: Nose without bleeding, purulent drainage or septal hematoma. . Airway patent. NECK: Trachea midline. No JVD CARDIOVASCULAR: Regular rate and rhythm without murmurs, gallops, or rubs. RESPIRATORY: Clear to auscultation. Breath sounds equal bilaterally. No wheezes , rales, or rhonchi. GASTROINTESTINAL: Abdomen soft, non-tender, nondistended. No guarding. MUSCULOSKELETAL: Extremities without clubbing, cyanosis, or edema. . No calf tenderness NEUROLOGICAL: Awake, looks at interviewer. However verbally noncommunicative. Does not really follow commands. Full neuro exam cannot be done due to his baseline mental status. Laboratory Laboratory Tests Test 09/10/16 09/11/16 09/11/16 09/11/16 21:25 00:10 00:40 02:10 Prothrombin Time 14.1 Prothromb Time International 1.3 Ratio Activated Partial 26.8 Thromboplast Time Sodium Level 156 160 Potassium Level 4.0 3.8 Chloride Level 121 129 Carbon Dioxide Level 26.0 19.0 Anion Gap 9 12 Blood Urea Nitrogen 45 36 Creatinine 1.86 1.26 Estimat Glomerular Filtration 45 70 Rate Random Glucose 196 130 Lactic Acid Level 2.6 1.2 Calcium Level 11.5 9.2 Magnesium Level 2.6 Total Bilirubin 0.4 Aspartate Amino Transf 46 (AST/SGOT) Alanine Aminotransferase 40 (ALT/SGPT) Alkaline Phosphatase 104 Ammonia 88 Total Creatine Kinase 1796 1426 Creatine Kinase MB 1.5 1.2 Creatine Kinase MB % 0.1 0.1 Troponin I 0.02 C-Reactive Protein 19.00 B-Type Natriuretic Peptide 21 Total Protein 8.1 Albumin 3.1 Lipase 106 Thyroid Stimulating Hormone 1.040 3rd Gen Phenytoin (Dilantin) Level 17.9 Valproic Acid (Depakene) Level 55 White Blood Count 10.3 Red Blood Count 4.97 Hemoglobin 15.9 Hematocrit 48.2 Mean Corpuscular Volume 97.1 Mean Corpuscular Hemoglobin 31.9 Mean Corpuscular Hemoglobin 32.9 Concent Red Cell Distribution Width 13.8 Platelet Count 220 Mean Platelet Volume 10.3 Neutrophils (%) (Auto) 69.8 Lymphocytes (%) (Auto) 19.7 Monocytes (%) (Auto) 9.9 Eosinophils (%) (Auto) 0.3 Basophils (%) (Auto) 0.3 Neutrophils # (Auto) 7.2 Lymphocytes # (Auto) 2.0 Monocytes # (Auto) 1.0 Eosinophils # (Auto) 0.0 Basophils # (Auto) 0.0 CBC Comment DIFF FINAL Differential Comment Urine Color DARK-YELLOW Urine Turbidity CLEAR Urine pH 6.5 Urine Specific [place] 1.022 Urine Protein TRACE Urine Glucose (UA) NEG Urine Ketones NEG Urine Occult Blood NEG Urine Nitrite NEG Urine Bilirubin NEG Urine Urobilinogen LESS THAN 2.0 Urine Leukocyte Esterase SMALL Urine RBC 6 Urine WBC 10 Urine Squamous Epithelial <1 Cells Urine Hyaline Casts 2 Microscopic Urinalysis Comment CATH-CULTURE IND Urine Opiates Screen NEG Urine Barbiturates Screen NEG Urine Amphetamines Screen NEG Urine Benzodiazepines Screen NEG Urine Cocaine Screen NEG Urine Cannabinoids Screen NEG Test 09/11/16 05:13 Sodium Level 146 Potassium Level 3.1 Chloride Level 128 Carbon Dioxide Level 18.0 Anion Gap 0 Blood Urea Nitrogen 29 Creatinine 1.59 Estimat Glomerular Filtration 54 Rate Random Glucose 571 Calcium Level 6.8 Protein Corrected Calcium 6.8 Total Creatine Kinase 658 Creatine Kinase MB 0.6 Creatine Kinase MB % 0.1 Total Protein 7.3 Date/Time Procedure Status Source Growth 09/11/16 02:10 Urine Culture Received Urine Catheterized Urine Pending 09/10/16 23:35 Aerobic Blood Culture Received Blood Peripheral Pending 09/10/16 23:35 Anaerobic Blood Culture Received Blood Peripheral Pending Result Diagram: 09/10/16212409/11/1613 Imaging Last [address] 09/10/162058 Signed Impressions: Service Date/Time: Saturday, September 10, 2016 21:39 - CONCLUSION: No significant change compared to prior study. No evidence of acute infarct or hemorrhage. Andrew Mata MD Chest X-Ray 09/10/162058 Signed Impressions: Service Date/Time: Saturday, September 10, 2016 21:21 - CONCLUSION: No acute disease. Andrew Mata MD Assessment and Plan Problem List: (1) Altered mental status ICD Code: R41.82 Status: Acute (2) Hypernatremia ICD Code: E87.0 Status: Resolved (3) VLAD (acute kidney injury) ICD Code: N17.9 Status: Resolved (4) Dehydration ICD Code: E86.0 Status: Acute (5) Rhabdomyolysis ICD Code: M62.82 Status: Acute (6) UTI (lower urinary tract infection) ICD Code: N39.0 Status: Acute (7) Hepatic encephalopathy ICD Code: K72.90 Status: Acute Assessment and Plan Impression: Hepatic encephalopathy Altered mental statussecondary to hepatic encephalopathy. Compounded by acute infectious process. Elevated ammonia level UTI with history of recent hospitalization Rhabdomyolysis Acute kidney injury. Hypernatremia. Electrolytes abnormalities/hyperglycemiadue to lab error. Patient had 5:13 AM lab drawn today which was erroneous as it was drawn close to the D5 IV infusion site. Fingerstick done at that time revealed blood sugar of 130s. Hypertension CADwife was told by side seam envelope machine operator on routine checkup/EKGs. No PCI. COPD Suspects underlying liver diseasewith prior history of heavy alcohol useat least 6 beers a day. Quit about 4 years ago. History of elevated ammonia History of DVTbilateral upper extremitiesreport that repeat ultrasound done about 3 months ago was negative. He was therefore taken out of anticoagulation then. History of CVAs History of recurrent grand mal seizures History of hypernatremia Plan: Start patient on D5 half normal saline at 84 cc per hour. Stat labs were repeated. 5:13 AM lab was drawn years. Based on repeat labs done at 7:06 AM, we would continue patient on D5 half normal saline. Will follow CPK for rhabdomyolysis. BMP every 6 hours. CPK every 6 hours We'll follow renal function. Lactulose 30 mL by mouth 3 times a day. We'll follow mental status and adjust lactulose dose. We'll continue vancomycin and cefepime per creatinine clearance and levels. Will follow-up urine culture results. seizure precautions. Resume patient's home doses of seizure meds. Patient would need medications to be crushed in pudding pured for it. This is what his usually does at home for him. resume home antihypertensives. DVT prophylaxison SCD GI prophylaxis on pantoprazole Discussed Condition With Patient's , ER physician, nursing staff Physician Certification 2 Midnight Certification Type: Admission for Inpatient Services Order for Inpatient Services The services are ordered in accordance with Medicare regulations or non- Medicare payer requirements, as applicable. In the case of services not specified as inpatient-only, they are appropriately provided as inpatient services in accordance with the 2-midnight benchmark. Estimated LOS (days): 2 days is the estimated time the patient will need to remain in the hospital, assuming treatment plan goals are met and no additional complications. Post-Hospital Plan: Home Problem Qualifiers (1) Altered mental status: Qualified Code: R40.0 - Somnolence (2) Rhabdomyolysis: Qualified Code: M62.82 - Non-traumatic rhabdomyolysis Hortencia Reardon MD Sep 11, 2016 07:38
[2016-09-11 07:41] LABS: POTASSIUM 3.9 MEQ/L (3.5-5.1)
[2016-09-11 07:52] LABS: CALCIUM-PROTEIN CORRECTED 11.2 MG/DL (8.5-10.1)
[2016-09-11] MEDS ORDERED: POTASSIUM BICARBONATE 25 MEQ EFFERVESCENT TAB PO ONE (08:00)
[2016-09-11] MEDS ORDERED: LORazepam 1 MG TAB PO PRN (08:00)
[2016-09-11] MEDS ORDERED: LORazepam 2 MG/ML VIAL IV PUSH PRN (08:15)
[2016-09-11] MEDS: DEXT 5%-NACL 0.45% 1000 ML INJ 1,000 ML IV SCH ×2 (08:54→20:42)
[2016-09-11] MEDS ORDERED: CALCIUM CARBONATE 500 MG CHEWABLE TAB CHEW SCH (09:00)
[2016-09-11] MEDS: SODIUM CHLORIDE 0.9% FLUSH 5 ML FLUSH FLUSH SCH (09:00)
[2016-09-11] MEDS: LACTULOSE SYRUP 20 GM/30 ML CUP PO SCH ×3 (10:06→17:42)
[2016-09-11] MEDS: ASPIRIN 81 MG CHEW TAB CHEW SCH (10:06)
[2016-09-11] MEDS: LACOSAMIDE 50 MG TAB PO SCH (10:07)
[2016-09-11] MEDS: amLODIPine BESYLATE 5 MG TAB PO SCH ×2 (10:07→23:13)
[2016-09-11] MEDS: PANTOPRAZOLE SOD 20 MG DELAYED RELEASE TAB PO SCH (10:07)
[2016-09-11] MEDS: VALPROIC ACID SYRUP 250 MG/5 ML UDC PO SCH ×2 (10:08→23:13)
[2016-09-11] MEDS: TOPIRAMATE 25 MG TAB PO SCH ×2 (10:19→23:13)
--- NOTE | 2016-09-11 10:20 | EKG ---
Date Performed: 09/10/2016 Time Performed: 21:05:09 PTAGE: 61 years EKG: SINUS TACHYCARDIA ABNORMAL RHYTHM ECG PREVIOUS TRACING : 08/30/2016 13.01 DOCTOR: Serg Marcelino Interpretating Date/Time 09/11/2016 10:19:07
[2016-09-11] MEDS: VANCOMYCIN INJ 2,000 MG in SODIUM CHLORID 0.9% 500 ML INJ 500 ML IV SCH (10:49)
[2016-09-11] MEDS ORDERED: INSULIN ASPART SUPPLEMENTAL SCALE SQ SCH (11:00)
[2016-09-11] MEDS ORDERED: VANCOMYCIN INJ 1,250 MG in SODIUM CHLOR 0.9% 250 ML INJ 250 ML IV SCH (12:00)
[2016-09-11] MEDS: CEFEPIME INJ 2,000 MG in SODIUM CHLORIDE 0.9% INJ 100 ML IV SCH ×2 (13:09→20:38)
[2016-09-11] MEDS: PHENYTOIN SUSP 100 MG/4 ML CUP PO SCH ×2 (13:20→23:13)
[2016-09-11 22:55] LABS: ANION GAP 6 MEQ/L (5-15); BICARBONATE 26.9 MEQ/L (21.0-32.0); CHLORIDE 125 MEQ/L (98-107); CREATINE KINASE 1283 U/L (39-308); GLOMERULAR FILTRATION RATE 64 ML/MIN (>89); POTASSIUM 3.2 MEQ/L (3.5-5.1)
[2016-09-11 23:03] LABS: BLOOD UREA NITROGEN 30 MG/DL (7-18)
[2016-09-11 23:05] LABS: SODIUM (NA) 158 MEQ/L (136-145)
[2016-09-11] MEDS: LACOSAMIDE 100 MG TAB PO SCH (23:13)
[2016-09-11 23:56] LABS: POTASSIUM 4.1 MEQ/L (3.5-5.1)
[2016-09-12] VITALS (29 sets, daily range): BP systolic 104–142; BP diastolic 52–81; PULSE 74–99; RESP 18; TEMP 97.7–99.5; O2SAT 95–98
[2016-09-12 00:23] LABS: CKMB 1.6 NG/ML (0.5-3.6)
[2016-09-12 00:27] LABS: CKMB 1.8 NG/ML (0.5-3.6)
[2016-09-12] MEDS: FREE WATER PO SCH ×6 (01:30→20:00)
[2016-09-12] MEDS: VANCOMYCIN INJ 2,000 MG in SODIUM CHLORID 0.9% 500 ML INJ 500 ML IV SCH (03:39)
[2016-09-12] MEDS: CEFEPIME INJ 2,000 MG in SODIUM CHLORIDE 0.9% INJ 100 ML IV SCH ×3 (03:39→18:45)
[2016-09-12] MEDS: PHENYTOIN SUSP 100 MG/4 ML CUP PO SCH ×3 (06:05→21:41)
[2016-09-12 07:25] LABS: CKMB 1.9 NG/ML (0.5-3.6)
[2016-09-12 08:24] LABS: BICARBONATE 24.6 MEQ/L (21.0-32.0); POTASSIUM 3.6 MEQ/L (3.5-5.1)
--- NOTE | 2016-09-12 08:58 | HHI.PR ---
Subjective Remarks Patient mumbles. at bedside states that his mental status improved since admission. His baseline is dependent transfers to wheelchair and at times able to push himself at home. Objective Vitals Vital Signs Date Time Temp Pulse Resp B/P Pulse Ox O2 Delivery O2 Flow Rate FiO2 09/12/16 07:15 98.5 80 18 124/79 97 09/12/16 06:00 90 09/12/16 05:00 90 09/12/16 04:00 94 09/12/16 03:30 97.7 99 18 127/81 98 09/12/16 03:00 94 09/12/16 02:00 94 09/12/16 01:00 90 09/12/16 00:00 92 09/11/16 23:00 98 09/11/16 22:00 97.7 100 18 148/93 96 09/11/16 20:00 95 18 142/84 100 Room Air 09/11/16 17:37 93 20 134/88 95 Room Air 09/11/16 16:45 88 20 130/78 100 Room Air 09/11/16 14:49 88 20 132/76 100 09/11/16 11:54 87 20 154/91 94 Room Air 09/11/16 09:59 98.7 89 20 132/85 09/11/16 09:30 20 97 Room Air I/O 09/11/16 09/11/16 09/11/16 09/12/16 09/12/16 09/12/16 07:00 15:00 23:00 07:00 15:00 23:00 Intake Total 2560 ml 720 ml Output Total 100 ml 550 ml Balance 2460 ml 170 ml Intake Oral 60 ml 720 ml IV Total 2500 ml Output Urine Total 100 ml 550 ml # Voids 0 1 Result Diagram: 09/10/16212409/12/16 0612 Objective Remarks GENERAL: This is a well-nourished, well-developed patient, in no apparent distress. CARDIOVASCULAR: Regular rate and rhythm RESPIRATORY: Clear to auscultation. Breath sounds equal bilaterally. No wheezes , rales, or rhonchi. GASTROINTESTINAL: Abdomen soft, obese, non-tender, nondistended. Normal active bowel sounds MUSCULOSKELETAL: Extremities without clubbing, cyanosis, trace edema NEURO: Alert & Oriented to person only, does recognize his . Squeezes with both hands. Generalized weakness lower extremities. A/P Problem List: (1) Metabolic encephalopathy ICD Code: G93.41 Status: Acute (2) Altered mental status ICD Code: R41.82 Status: Acute (3) Hypernatremia ICD Code: E87.0 Status: Resolved (4) VLAD (acute kidney injury) ICD Code: N17.9 Status: Resolved (5) Dehydration ICD Code: E86.0 Status: Acute (6) Rhabdomyolysis ICD Code: M62.82 Status: Acute (7) UTI (lower urinary tract infection) ICD Code: N39.0 Status: Acute (8) Hepatic encephalopathy ICD Code: K72.90 Status: Acute Assessment and Plan Encephalopathy may be due to multifactorial including hepatic encephalopathy and metabolic encephalopathy. This could be compounded by infectious process at this time will await final culture results with urinary tract infections. at bedside does report patient has a history of complete urinary tract infection. Will continue with IV cefepime E but will discontinue vancomycin today until further cultures are available. Levels be monitored. In addition sodium levels continue to be elevated and will change IV fluid hydration to D5W with continued encouragement for by mouth fluid intake. Hepatic encephalopathy- currently on lactulose and will monitor ammonia levels. RhabdomyolysisCPK training overnight for hydration Acute kidney injury superimposed on chronic kidney disease stage II. Hypernatremia.Trending down however will change IV fluid hydration to D5 W, encourage oral fluid Freew ater intake. Hypertension, essential and chronicNorvasc, currently controlled CADwife was told by health care specialist on routine checkup/EKGs. No PCI. Continue aspirin. COPD, chronic9 any acute exacerbation. Suspects underlying liver diseasewith prior history of heavy alcohol useat least 6 beers a day. Quit about 4 years ago per at bedside. History of DVTbilateral upper extremitiesreport that repeat ultrasound done about 3 months ago was negative. He was therefore taken out of anticoagulation then. History of CVAsnew aspirin continue physical therapy History of recurrent grand mal seizuresno recurrent seizures here during hospitalization, will continue with Dilantin and Depakote, Topamax, and home anticonvulsants. DVT prophylaxison SCD , no intracardiac due to underlying liver disease GI prophylaxis on pantoprazole Problem Qualifiers (1) Altered mental status: Qualified Code: R40.0 - Somnolence (2) Rhabdomyolysis: Qualified Code: M62.82 - Non-traumatic rhabdomyolysis Kenia Rebolledo MD Sep 12, 2016 08:58
[2016-09-12] MEDS: SODIUM CHLORIDE 0.9% FLUSH 5 ML FLUSH FLUSH SCH ×2 (09:00→21:41)
[2016-09-12] MEDS: TOPIRAMATE 25 MG TAB PO SCH ×2 (09:15→21:40)
[2016-09-12] MEDS: ASPIRIN 81 MG CHEW TAB CHEW SCH (09:15)
[2016-09-12] MEDS: amLODIPine BESYLATE 5 MG TAB PO SCH ×2 (09:15→21:40)
[2016-09-12] MEDS: PANTOPRAZOLE SOD 20 MG DELAYED RELEASE TAB PO SCH (09:15)
[2016-09-12] MEDS: LACTULOSE SYRUP 20 GM/30 ML CUP PO SCH ×3 (09:15→18:45)
[2016-09-12] MEDS: DEXTROSE 5% IN WATE 1000ML INJ 1,000 ML IV SCH (10:07)
[2016-09-12] MEDS: LACOSAMIDE 50 MG TAB PO SCH (11:34)
[2016-09-12] MEDS: VALPROIC ACID SYRUP 250 MG/5 ML UDC PO SCH ×2 (11:34→21:40)
[2016-09-12] MEDS: LACOSAMIDE 100 MG TAB PO SCH (21:40)
[2016-09-12] MEDS ORDERED: PHARMACY ORDERED LAB XX ONE (23:45)
[2016-09-13] VITALS (27 sets, daily range): BP systolic 125–150; BP diastolic 69–84; PULSE 54–95; RESP 18; TEMP 97.6–98.6; O2SAT 96–100
[2016-09-13] MEDS: FREE WATER PO SCH ×5 (04:00→17:22)
[2016-09-13] MEDS: DEXTROSE 5% IN WATE 1000ML INJ 1,000 ML IV SCH ×2 (04:37→10:07)
[2016-09-13] MEDS: CEFEPIME INJ 2,000 MG in SODIUM CHLORIDE 0.9% INJ 100 ML IV SCH ×3 (04:38→18:18)
[2016-09-13] MEDS: PHENYTOIN SUSP 100 MG/4 ML CUP PO SCH ×3 (06:19→22:20)
[2016-09-13 06:29] LABS: BICARBONATE 26.7 MEQ/L (21.0-32.0); POTASSIUM 3.9 MEQ/L (3.5-5.1)
[2016-09-13 07:07] LABS: CKMB 2.2 NG/ML (0.5-3.6)
[2016-09-13] MEDS: SODIUM CHLORIDE 0.9% FLUSH 5 ML FLUSH FLUSH SCH ×2 (09:00→22:21)
--- NOTE | 2016-09-13 09:09 | HHI.PR ---
Subjective Remarks Smiling, follow commands, at bedside states that he is improving and is being more interactive today. Objective Vitals Vital Signs Date Time Temp Pulse Resp B/P Pulse Ox O2 Delivery O2 Flow Rate FiO2 09/13/16 08:24 63 09/13/16 08:24 97.6 63 18 134/80 99 09/13/16 07:11 63 09/13/16 06:00 68 09/13/16 05:00 68 09/13/16 04:36 98.6 87 18 147/77 96 09/13/16 04:00 69 09/13/16 03:00 71 09/13/16 02:00 74 09/13/16 01:00 76 09/13/16 00:00 82 09/12/16 23:15 98.6 88 18 104/52 96 09/12/16 23:00 91 09/12/16 22:00 90 09/12/16 21:00 92 09/12/16 20:00 90 09/12/16 19:15 98.0 92 18 134/68 96 09/12/16 19:00 84 09/12/16 17:00 83 09/12/16 16:00 86 09/12/16 15:07 98.5 85 18 142/74 95 09/12/16 15:00 91 09/12/16 14:00 88 09/12/16 13:00 87 09/12/16 12:00 82 09/12/16 11:32 99.5 82 18 139/74 97 09/12/16 11:00 74 09/12/16 10:00 82 09/12/16 09:00 80 I/O 09/12/16 09/12/16 09/12/16 09/13/16 09/13/16 09/13/16 07:00 15:00 23:00 07:00 15:00 23:00 Intake Total 720 ml 550 ml 720 ml Output Total 550 ml 210 ml 1 ml Balance 170 ml 340 ml 719 ml Intake Oral 720 ml 550 ml 720 ml Output Urine Total 550 ml 210 ml Stool Total 1 ml # Voids 1 4 3 # Bowel Movements 0 Result Diagram: 09/10/16212409/13/16529 Other Results Item Value Date Time Total Creatine Kinase 1138 U/L H 09/13/16 0530 Objective Remarks GENERAL: This is a well-nourished, well-developed patient, in no apparent distress. CARDIOVASCULAR: Regular rate and rhythm RESPIRATORY: Clear to auscultation. Breath sounds equal bilaterally. No wheezes , rales, or rhonchi. GASTROINTESTINAL: Abdomen soft, obese, non-tender, nondistended. Normal active bowel sounds MUSCULOSKELETAL: Extremities without clubbing, cyanosis, trace edema NEURO: Alert & Oriented to person and place only, does recognize his . Squeezes with both hands. Generalized weakness lower extremities. A/P Problem List: (1) Metabolic encephalopathy ICD Code: G93.41 Status: Acute (2) Altered mental status ICD Code: R41.82 Status: Resolved (3) Hypernatremia ICD Code: E87.0 Status: Resolved (4) VLAD (acute kidney injury) ICD Code: N17.9 Status: Resolved (5) Dehydration ICD Code: E86.0 Status: Resolved (6) Rhabdomyolysis ICD Code: M62.82 Status: Acute (7) UTI (lower urinary tract infection) ICD Code: N39.0 Status: Acute (8) Hepatic encephalopathy ICD Code: K72.90 Status: Resolved Assessment and Plan Encephalopathy may be due to multifactorial including hepatic encephalopathy and metabolic encephalopathy from hypernatremia. This could be compounded by infectious processat this time will await final culture results with urinary tract infections. at bedside does report patient has a history of complicated urinary tract infection. Will continue with IV cefepime until final cultures, vancomycin discontinued yesterday. Sodium levels are trending down with change IV fluid hydration to D5W with continued encouragement for by mouth fluid intake. Hepatic encephalopathy- currently on lactulose and will monitor ammonia levels. Repeat level in the morning RhabdomyolysisIV fluid hydration was CPK trending down Acute kidney injury superimposed on chronic kidney disease stage II.IV fluid hydration, avoid nephrotoxins. Hypernatremia.Trending down on IV fluid hydration to D5 W, encourage oral fluid Free water intake. Hypertension, essential and chronicNorvasc, currently controlled CADwife was told by call center agent on routine checkup/EKGs. No PCI. Continue aspirin. COPD, chronicnot in any acute exacerbation. Suspects underlying liver diseasewith prior history of heavy alcohol useat least 6 beers a day. Quit about 4 years ago per at bedside. History of DVTbilateral upper extremitiesreport that repeat ultrasound done about 3 months ago was negative. He was therefore taken out of anticoagulation then. History of CVAsnew aspirin continue physical therapy History of recurrent grand mal seizuresno recurrent seizures here during hospitalization, will continue with Dilantin and Depakote, Topamax, and home anticonvulsants. His at bedside states that his neurologist has recommended starting to taper off Dilantin next week as patient was just started on Topamax recently. DVT prophylaxison SCD , no anticoagulation due to underlying liver disease GI prophylaxis on pantoprazole Discharge Planning has good social and caregiver support along with proper durable medical equipment at home. Plan is to discharge patient to home with in the next 2 days aiming for Friday if patient continues to clinically improve. Problem Qualifiers (1) Altered mental status: Qualified Code: R40.0 - Somnolence (2) Rhabdomyolysis: Qualified Code: M62.82 - Non-traumatic rhabdomyolysis Kenia Rebolledo MD Sep 13, 2016 09:09
[2016-09-13] MEDS: TOPIRAMATE 25 MG TAB PO SCH ×2 (10:08→22:21)
[2016-09-13] MEDS: PANTOPRAZOLE SOD 20 MG DELAYED RELEASE TAB PO SCH (10:08)
[2016-09-13] MEDS: LACOSAMIDE 50 MG TAB PO SCH (10:08)
[2016-09-13] MEDS: amLODIPine BESYLATE 5 MG TAB PO SCH ×2 (10:08→22:20)
[2016-09-13] MEDS: LACTULOSE SYRUP 20 GM/30 ML CUP PO SCH ×3 (10:08→18:17)
[2016-09-13] MEDS: ASPIRIN 81 MG CHEW TAB CHEW SCH (10:08)
[2016-09-13] MEDS: VALPROIC ACID SYRUP 250 MG/5 ML UDC PO SCH ×2 (10:09→22:20)
[2016-09-13] MEDS ORDERED: PHARMACY ORDERED LAB XX ONE (15:45)
[2016-09-13] MEDS: LACOSAMIDE 100 MG TAB PO SCH (21:00)
[2016-09-14] VITALS (25 sets, daily range): BP systolic 119–157; BP diastolic 68–97; PULSE 57–82; RESP 14–18; TEMP 97.2–98.2; O2SAT 94–100
[2016-09-14] MEDS: DEXTROSE 5% IN WATE 1000ML INJ 1,000 ML IV SCH ×3 (02:32→20:14)
[2016-09-14] MEDS: CEFEPIME INJ 2,000 MG in SODIUM CHLORIDE 0.9% INJ 100 ML IV SCH ×2 (02:33→12:13)
[2016-09-14] MEDS: PHENYTOIN SUSP 100 MG/4 ML CUP PO SCH ×3 (06:06→21:52)
[2016-09-14] MEDS: FREE WATER PO SCH ×4 (09:11→20:00)
[2016-09-14] MEDS: amLODIPine BESYLATE 5 MG TAB PO SCH ×2 (09:21→21:52)
[2016-09-14] MEDS: PANTOPRAZOLE SOD 20 MG DELAYED RELEASE TAB PO SCH (09:21)
[2016-09-14] MEDS: VALPROIC ACID SYRUP 250 MG/5 ML UDC PO SCH ×2 (09:21→21:52)
[2016-09-14] MEDS: LACOSAMIDE 50 MG TAB PO SCH (09:21)
[2016-09-14] MEDS: TOPIRAMATE 25 MG TAB PO SCH ×2 (09:21→21:52)
[2016-09-14] MEDS: ASPIRIN 81 MG CHEW TAB CHEW SCH (09:21)
[2016-09-14] MEDS: LACTULOSE SYRUP 20 GM/30 ML CUP PO SCH ×3 (09:22→18:00)
[2016-09-14] MEDS: SODIUM CHLORIDE 0.9% FLUSH 5 ML FLUSH FLUSH SCH ×2 (09:22→21:00)
[2016-09-14 12:44] LABS: BICARBONATE 24.2 MEQ/L (21.0-32.0); POTASSIUM 3.5 MEQ/L (3.5-5.1)
--- NOTE | 2016-09-14 14:42 | HHI.PR ---
Subjective Remarks Patient seen this morning around 10 AM. No acute issues per nursing. following commands. Objective Vital Signs Date Time Temp Pulse Resp B/P Pulse Ox O2 Delivery O2 Flow Rate FiO2 09/14/16 13:11 68 09/14/16 12:44 97.2 61 18 157/87 94 09/14/16 12:00 62 09/14/16 11:00 57 09/14/16 10:00 64 09/14/16 09:00 62 09/14/16 08:00 66 09/14/16 08:00 98.0 64 18 131/97 100 09/14/16 07:00 63 09/14/16 06:00 61 09/14/16 05:00 68 09/14/16 04:00 98.2 66 18 128/68 97 09/14/16 04:00 66 09/14/16 03:00 65 09/14/16 02:00 63 09/14/16 01:00 69 09/14/16 00:00 70 09/14/16 00:00 98.0 70 18 132/76 97 09/13/16 23:00 67 09/13/16 22:00 72 09/13/16 21:00 71 09/13/16 20:00 73 09/13/16 19:00 98.0 75 18 145/83 98 09/13/16 19:00 76 09/13/16 18:11 69 09/13/16 17:19 98.1 95 18 150/84 99 09/13/16 17:09 68 09/13/16 16:32 69 09/13/16 15:30 65 I/O 09/13/16 09/13/16 09/13/16 09/14/16 09/14/16 09/14/16 07:00 15:00 23:00 07:00 15:00 23:00 Intake Total 720 ml 1224 ml 1740 ml Output Total 1 ml Balance 719 ml 1224 ml 1740 ml Intake Oral 720 ml 340 ml IV Total 1224 ml 1400 ml Stool Total 1 ml # Voids 3 3 3 # Bowel Movements 2 Result Diagram: 09/10/16 09/14/16 1215 Objective Remarks GENERAL: Appears comfortable. Following commands. Sleeping, wakes up for exam. SKIN: Warm and dry. HEAD: Normocephalic. EYES: No scleral icterus. No injection or drainage. NECK: Supple, trachea midline. No JVD. CARDIOVASCULAR: Regular rate and rhythm without murmurs, gallops, or rubs. RESPIRATORY: Breath sounds equal bilaterally. No accessory muscle use. GASTROINTESTINAL: Abdomen soft, non-tender, nondistended. MUSCULOSKELETAL: No cyanosis, or edema. BACK: Nontender without obvious deformity. No CVA tenderness. A/P Assessment and Plan //Encephalopathy may be due to multifactorial including hepatic encephalopathy and metabolic encephalopathy from hypernatremia. - Urinary tract infection. Continue antibiotics. -Continue lactulose for hepatic cephalopathy. //Hepatic encephalopathy //Suspected underlying liver disease. Past history of alcoholism - currently on lactulose and will monitor ammonia levels. Obtain a monitor. //Hypernatremia. -Sodium levels trending down. Continue fluid hydration. Continue to monitor sodium levels. //RhabdomyolysisIV fluid hydration was CPK trending down -CK improving. Continue to monitor. Potassium stable. //Acute kidney injury superimposed on chronic kidney disease stage II. -Possibly secondary to dehydration, rhabdomyolysis. -Resolved with fluids. //Hypertension, essential and chronicNorvasc, currently blood pressure acceptable. Continue to monitor //CADwife was told by medical physiologist on routine checkup/EKGs. No PCI. Continue aspirin. //COPD, chronicnot in any acute exacerbation. //History of DVTbilateral upper extremitiesreport that repeat ultrasound done about 3 months ago was negative. He was therefore taken out of anticoagulation then. //History of CVAs -Continue aspirin. Continue physical therapy //History of recurrent grand mal seizuresno recurrent seizures here during hospitalization, will continue with Dilantin and Depakote, Topamax, and home anticonvulsants. - stated that his neurologist has recommended starting to taper off Dilantin next week as patient was just started on Topamax recently. -We'll need to follow-up with neurologist as outpatient. //DVT prophylaxison SCD , no anticoagulation due to underlying liver disease GI prophylaxis on pantoprazole Discharge Planning Discharge Planning has good social and caregiver support along with proper durable medical equipment at home. -Likely discharge on Friday if patient continues to improve. Obie Ulrich MD Sep 14, 2016 14:42
[2016-09-14] MEDS: cefTRIAXone INJ 1,000 MG in SODIUM CHLORIDE 0.9% INJ 100 ML IV SCH (18:00)
[2016-09-14] MEDS: LACOSAMIDE 100 MG TAB PO SCH (21:52)
[2016-09-15] VITALS (25 sets, daily range): BP systolic 122–159; BP diastolic 56–83; PULSE 56–90; RESP 14–16; TEMP 96.9–98.3; O2SAT 98–100
[2016-09-15] MEDS: FREE WATER PO SCH ×7 (04:00→23:45)
[2016-09-15] MEDS: PHENYTOIN SUSP 100 MG/4 ML CUP PO SCH ×3 (05:48→21:59)
[2016-09-15] MEDS: DEXTROSE 5% IN WATE 1000ML INJ 1,000 ML IV SCH ×2 (06:14→16:20)
[2016-09-15] MEDS: PANTOPRAZOLE SOD 20 MG DELAYED RELEASE TAB PO SCH (09:16)
[2016-09-15] MEDS: LACTULOSE SYRUP 20 GM/30 ML CUP PO SCH ×3 (09:16→17:19)
[2016-09-15] MEDS: VALPROIC ACID SYRUP 250 MG/5 ML UDC PO SCH ×2 (09:16→21:59)
[2016-09-15] MEDS: TOPIRAMATE 25 MG TAB PO SCH ×2 (09:16→21:59)
[2016-09-15] MEDS: LACOSAMIDE 50 MG TAB PO SCH (09:16)
[2016-09-15] MEDS: ASPIRIN 81 MG CHEW TAB CHEW SCH (09:16)
[2016-09-15] MEDS: SODIUM CHLORIDE 0.9% FLUSH 5 ML FLUSH FLUSH SCH ×2 (09:17→21:00)
[2016-09-15] MEDS: amLODIPine BESYLATE 5 MG TAB PO SCH ×2 (09:17→21:59)
[2016-09-15 09:50] LABS: AUTOMATED NEUTROPHIL # 4.2 TH/MM3 (1.8-7.7); BASOPHIL % 0.4 % (0.0-2.0); EOSINOPHIL # 0.2 TH/MM3 (0-0.4); EOSINOPHIL % 3.1 % (0.0-4.0); HEMATOCRIT 35.4 % (39.0-51.0); HEMO FLAGS DIFF FINAL; LYMPH % 27.8 % (9.0-44.0); LYMPHOCYTE # 2.1 TH/MM3 (1.0-4.8); MEAN CELL VOLUME 94.4 FL (80.0-100.0); MEAN CORPUSCULAR HEMOGLOBIN 32.6 PG (27.0-34.0); MEAN CORPUSCULAR HGB CONC 34.5 % (32.0-36.0); MONO % 12.2 % (0.0-8.0); NEUT % 56.5 % (16.0-70.0); PLATELET COUNT 136 TH/MM3 (150-450); RED BLOOD COUNT 3.75 MIL/MM3 (4.50-5.90); RED CELL DISTRIBUTION WIDTH 12.9 % (11.6-17.2); WHITE BLOOD COUNT 7.5 TH/MM3 (4.0-11.0)
[2016-09-15 10:03] LABS: BICARBONATE 23.5 MEQ/L (21.0-32.0); MAGNESIUM 1.9 MG/DL (1.5-2.5); POTASSIUM 3.4 MEQ/L (3.5-5.1)
[2016-09-15] MEDS ORDERED: POTASSIUM PHOSPHATE INJ 15 MMOL in SODIUM CHLORIDE 0.9% INJ 150 ML IV ONE (14:00)
[2016-09-15] MEDS: cefTRIAXone INJ 1,000 MG in SODIUM CHLORIDE 0.9% INJ 100 ML IV SCH (17:19)
--- NOTE | 2016-09-15 18:49 | HHI.PR ---
Subjective Remarks Patient seen today around 1 PM. No acute changes per nursing. Patient wakes up , nonverbal as before. Does appear to follow commands (deep breaths)as before. Per discussion with nursing, Family has been feeding patient. Has requested increase to full diet. Family also requesting to taper Dilantin. I placed a call to primary contact number this afternoon, however no answer. We'll consult neurology. Objective Vital Signs Date Time Temp Pulse Resp B/P Pulse Ox O2 Delivery O2 Flow Rate FiO2 09/15/16 18:08 79 09/15/16 17:11 63 09/15/16 16:00 66 09/15/16 15:20 98.1 70 16 122/67 100 09/15/16 15:00 63 09/15/16 14:00 84 09/15/16 13:00 70 09/15/16 12:00 98.3 69 16 141/56 98 09/15/16 12:00 66 09/15/16 11:00 68 09/15/16 10:00 74 09/15/16 09:00 66 09/15/16 08:00 68 09/15/16 08:00 98.2 68 16 156/79 100 09/15/16 07:00 69 09/15/16 06:00 60 09/15/16 05:00 58 09/15/16 04:00 80 09/15/16 03:00 96.9 60 16 130/59 100 09/15/16 03:00 64 09/15/16 02:00 80 09/15/16 01:00 78 09/15/16 00:00 74 09/14/16 23:00 97.8 76 16 119/69 100 09/14/16 23:00 80 09/14/16 22:00 78 09/14/16 21:00 72 09/14/16 20:00 82 09/14/16 19:00 98.2 78 14 144/88 99 09/14/16 19:00 71 I/O 09/14/16 09/14/16 09/14/16 09/15/16 09/15/16 09/15/16 07:00 15:00 23:00 07:00 15:00 23:00 Intake Total 1740 ml 1169 ml 1785 ml 2650 ml Output Total 500 ml 852 ml 500 ml Balance 1740 ml 669 ml 933 ml 2150 ml Intake Oral 340 ml 500 ml 960 ml 600 ml IV Total 1400 ml 669 ml 825 ml 2050 ml Output Urine Total 500 ml 850 ml 500 ml Stool Total 2 ml # Voids 3 2 2 2 # Bowel Movements 2 2 3 Result Diagram: 09/15/16 0900 09/15/16 09 Objective Remarks GENERAL: Appears comfortable. Following commands. Sleeping, wakes up for exam. SKIN: Warm and dry. HEAD: Normocephalic. EYES: No scleral icterus. No injection or drainage. NECK: Supple, trachea midline. No JVD. CARDIOVASCULAR: Regular rate and rhythm without murmurs, gallops, or rubs. RESPIRATORY: Breath sounds equal bilaterally. No accessory muscle use. GASTROINTESTINAL: Abdomen soft, non-tender, nondistended. MUSCULOSKELETAL: No cyanosis, or edema. BACK: Nontender without obvious deformity. No CVA tenderness. A/P Assessment and Plan //Encephalopathy may be due to multifactorial including hepatic encephalopathy and metabolic encephalopathy from hypernatremia. - Urinary tract infection. Continue antibiotics. -Continue lactulose for hepatic cephalopathy. //Hepatic encephalopathy //Suspected underlying liver disease. Past history of alcoholism - currently on lactulose and will monitor ammonia levels. Obtain a monitor. //Hypernatremia. -Sodium levels trending down. Continue fluid hydration. Continue to monitor sodium levels. //RhabdomyolysisIV fluid hydration was CPK trending down -CK improving. Continue to monitor. Potassium stable. //Acute kidney injury superimposed on chronic kidney disease stage II. -Possibly secondary to dehydration, rhabdomyolysis. -Resolved with fluids. //Hypertension, essential and chronicNorvasc, currently blood pressure acceptable. Continue to monitor //CADwife was told by hollow handle bench worker on routine checkup/EKGs. No PCI. Continue aspirin. //COPD, chronicnot in any acute exacerbation. //History of DVTbilateral upper extremitiesreport that repeat ultrasound done about 3 months ago was negative. He was therefore taken out of anticoagulation then. //History of CVAs -Continue aspirin. Continue physical therapy //History of recurrent grand mal seizuresno recurrent seizures here during hospitalization, will continue with Dilantin and Depakote, Topamax, and home anticonvulsants. - stated that his neurologist has recommended starting to taper off Dilantin next week as patient was just started on Topamax recently. -We'll need to follow-up with neurologist as outpatient. //DVT prophylaxison SCD , no anticoagulation due to underlying liver disease GI prophylaxis on pantoprazole Discharge Planning Discharge Planning has good social and caregiver support along with proper durable medical equipment at home. -Likely discharge on Friday if patient continues to improve. Obie Ulrich MD Sep 15, 2016 18:49
[2016-09-15] MEDS: LACOSAMIDE 100 MG TAB PO SCH (21:59)
[2016-09-16] VITALS (26 sets, daily range): BP systolic 111–176; BP diastolic 67–88; PULSE 58–94; RESP 16–20; TEMP 98–98.5; O2SAT 94–99
[2016-09-16] MEDS: DEXTROSE 5% IN WATE 1000ML INJ 1,000 ML IV SCH ×3 (02:14→21:34)
[2016-09-16] MEDS: FREE WATER PO SCH ×6 (04:00→23:30)
[2016-09-16] MEDS: PHENYTOIN SUSP 100 MG/4 ML CUP PO SCH ×3 (08:40→17:46)
[2016-09-16] MEDS: LACOSAMIDE 50 MG TAB PO SCH (08:40)
[2016-09-16] MEDS: TOPIRAMATE 25 MG TAB PO SCH ×2 (08:40→21:32)
[2016-09-16] MEDS: VALPROIC ACID SYRUP 250 MG/5 ML UDC PO SCH (08:40)
[2016-09-16] MEDS: SODIUM CHLORIDE 0.9% FLUSH 5 ML FLUSH FLUSH SCH ×2 (08:41→21:32)
[2016-09-16] MEDS: LACTULOSE SYRUP 20 GM/30 ML CUP PO SCH ×3 (08:41→17:46)
[2016-09-16] MEDS: PANTOPRAZOLE SOD 20 MG DELAYED RELEASE TAB PO SCH (08:42)
[2016-09-16] MEDS: ASPIRIN 81 MG CHEW TAB CHEW SCH (08:43)
[2016-09-16] MEDS: amLODIPine BESYLATE 5 MG TAB PO SCH ×2 (08:43→21:32)
--- NOTE | 2016-09-16 11:39 | MB ---
cc: JANA DUKES M.D. DATE OF CONSULTATION 09/16/2016 REASON FOR CONSULTATION Adjust seizure medications. HISTORY OF PRESENT ILLNESS Mr. Jimenez is a 60-year-old male with multiple strokes and seizure disorder. He has been very lethargic, as an outpatient was on a tapering course of Dilantin from three a day down to two a day for two weeks, one a day for two weeks, then was to stop it. He currently, however, is on three a day of Dilantin in addition to his regular dose of valproic acid and Vimpat. He has not had any recurrent seizures but he had been very lethargic. His admission diagnosis was hepatic encephalopathy rhabdomyolysis, dehydration. He did have a very elevated ammonia level as well of 75. CURRENT MEDICATIONS 1. Dilantin 100 mg b.i.d. 2. Ceftriaxone. 3. Vimpat 2 mg at bedtime, 150 mg in the morning. 4. Aspirin 162 mg daily. 5. Norvasc 5 mg b.i.d. 6. Protonix 20 mg daily. 7. Depakene liquid 500 mg b.i.d. 8. Topamax 50 mg b.i.d. 9. Lactulose. NEUROLOGIC EXAMINATION VITAL SIGNS: Blood pressure is 168/85, pulse is 74, respirations are 16, temperature 98 degrees. Higher Cortical Function: Lethargic but arousable. He has no spontaneous speech output. Cranial Nerves: Intact. Motor Exam: He is generally weak but no focal deficits. IMAGING STUDIES CT of the brain is unchanged. He again has an area of encephalomalacia which is severe in the right frontal lobe, right temporal lobe, right parietal lobe and in the left temporal lobe as well. No acute change present. LABORATORY DATA White count is 7,500, hemoglobin 12.2, hematocrit 35%, platelet count 136,000. PT is 14.1, INR 1.3, APTT 26.8. Sodium is 145, potassium 3.4, chloride 112, CO2 is 23.5, creatinine 0.74, GFR is 129, glucose 126, ammonia level 78 on 09/13/2016; on 09/14 it was 60. AST is 46, ALT is 40. IMPRESSION AND RECOMMENDATIONS History of multiple strokes with secondary seizures. The elevated ammonia may be related to the valproic acid and this may be the cause of the sedation, therefore I would recommend continuing Dilantin and Vimpat but tapering off the valproic acid very gradually, monitoring for any recurrent seizures. MD DIANNA Peoples/ENRIQUE /10:40 AM /11:30 AM
[2016-09-16] MEDS: cefTRIAXone INJ 1,000 MG in SODIUM CHLORIDE 0.9% INJ 100 ML IV SCH (17:47)
[2016-09-16] MEDS: LACOSAMIDE 100 MG TAB PO SCH (21:32)
--- NOTE | 2016-09-16 22:11 | HHI.PR ---
Subjective Remarks Patient seen this afternoon. No acute changes per nursing. Eating per nursing. Neurology will taper valproic acid, continue Dilantin and Vimpat Objective Vital Signs Date Time Temp Pulse Resp B/P Pulse Ox O2 Delivery O2 Flow Rate FiO2 09/16/16 18:00 63 09/16/16 17:00 66 09/16/16 16:00 66 09/16/16 15:00 79 09/16/16 15:00 98.0 82 18 140/69 99 09/16/16 14:00 67 09/16/16 13:00 58 09/16/16 12:00 59 09/16/16 11:00 98.0 77 16 128/67 98 09/16/16 11:00 63 09/16/16 10:00 70 09/16/16 09:00 80 09/16/16 08:00 61 09/16/16 07:00 98.5 74 20 168/85 97 09/16/16 07:00 60 09/16/16 06:00 62 09/16/16 05:00 74 09/16/16 04:00 76 09/16/16 03:15 98.3 84 18 137/67 98 09/16/16 03:00 73 09/16/16 02:00 76 09/16/16 01:00 94 09/16/16 00:00 90 09/15/16 23:00 98.3 81 14 159/83 99 09/15/16 23:00 76 I/O 09/15/16 09/15/16 09/15/16 09/16/16 09/16/16 09/16/16 07:00 15:00 23:00 07:00 15:00 23:00 Intake Total 1785 ml 2650 ml 1140 ml 1020 ml Output Total 852 ml 500 ml 950 ml 750 ml Balance 933 ml 2150 ml 190 ml 270 ml Intake Oral 960 ml 600 ml 240 ml 1020 ml IV Total 825 ml 2050 ml 900 ml Output Urine Total 850 ml 500 ml 950 ml 750 ml Stool Total 2 ml # Voids 2 2 # Bowel Movements 3 2 1 Result Diagram: 09/15/16 0900 09/15/16 0901 Objective Remarks GENERAL: Appears comfortable. Breathes deeply on command. Sleeping, wakes up for exam.no appreciable change on exam. SKIN: Warm and dry. HEAD: Normocephalic. EYES: No scleral icterus. No injection or drainage. NECK: Supple, trachea midline. No JVD. CARDIOVASCULAR: Regular rate and rhythm without murmurs, gallops, or rubs. RESPIRATORY: Breath sounds equal bilaterally. No accessory muscle use. GASTROINTESTINAL: Abdomen soft, non-tender, nondistended. MUSCULOSKELETAL: No cyanosis, or edema. BACK: Nontender without obvious deformity. No CVA tenderness. A/P Assessment and Plan //Encephalopathy may be due to multifactorial including hepatic encephalopathy and metabolic encephalopathy from hypernatremia. - Urinary tract infection. Continue antibiotics. -Continue lactulose for hepatic cephalopathy. -May be secondary to valproic acid. Neurology tapering. Appreciate assistance. //Hepatic encephalopathy //Suspected underlying liver disease. Past history of alcoholism - currently on lactulose and will monitor ammonia levels. continue to monitor. //Hypernatremia.resolved. -Sodium levels trending down. Continue fluid hydration. Continue to monitor sodium levels. //RhabdomyolysisIV fluid hydration was CPK trending down -CK improving. Continue to monitor. Potassium stable. //Acute kidney injury superimposed on chronic kidney disease stage II. -Possibly secondary to dehydration, rhabdomyolysis. -Resolved with fluids. //Hypertension, essential and chronicNorvasc, currently blood pressure acceptable. Continue to monitor //Tamar was told by seismometer operator on routine checkup/EKGs. No PCI. Continue aspirin. //COPD, chronicnot in any acute exacerbation. //History of DVTbilateral upper extremitiesreport that repeat ultrasound done about 3 months ago was negative. He was therefore taken out of anticoagulation then. //History of CVAs -Continue aspirin. Continue physical therapy //History of recurrent grand mal seizuresno recurrent seizures here during hospitalization, will continue with Dilantin and Depakote, Topamax, and home anticonvulsants. - stated that his neurologist has recommended starting to taper off Dilantin next week as patient was just started on Topamax recently. -We'll need to follow-up with neurologist as outpatient. //DVT prophylaxison SCD , no anticoagulation due to underlying liver disease GI prophylaxis on pantoprazole Discharge Planning Discharge Planning has good social and caregiver support along with proper durable medical equipment at home. -tapering valproic acid. Continue to monitor ammonia levels. Possible discharge home in next 1-2 days. Obie Ulrich MD Sep 16, 2016 22:10
[2016-09-16 22:29] LABS: AUTOMATED NEUTROPHIL # 3.3 TH/MM3 (1.8-7.7); BASOPHIL % 0.5 % (0.0-2.0); EOSINOPHIL # 0.2 TH/MM3 (0-0.4); EOSINOPHIL % 3.4 % (0.0-4.0); HEMATOCRIT 34.3 % (39.0-51.0); HEMO FLAGS DIFF FINAL; LYMPH % 31.8 % (9.0-44.0); LYMPHOCYTE # 2.1 TH/MM3 (1.0-4.8); MEAN CORPUSCULAR HGB CONC 34.4 % (32.0-36.0); NEUT % 49.3 % (16.0-70.0); PLATELET COUNT 188 TH/MM3 (150-450); RED BLOOD COUNT 3.58 MIL/MM3 (4.50-5.90); RED CELL DISTRIBUTION WIDTH 13.3 % (11.6-17.2); WHITE BLOOD COUNT 6.6 TH/MM3 (4.0-11.0)
[2016-09-16 22:43] LABS: BICARBONATE 22.4 MEQ/L (21.0-32.0); MAGNESIUM 1.9 MG/DL (1.5-2.5); POTASSIUM 3.7 MEQ/L (3.5-5.1)
[2016-09-16 22:58] LABS: CKMB 1.2 NG/ML (0.5-3.6)
[2016-09-17] VITALS (25 sets, daily range): BP systolic 88–134; BP diastolic 60–86; PULSE 60–102; RESP 16–20; TEMP 97–98.4; O2SAT 97–100
[2016-09-17] MEDS: FREE WATER PO SCH ×5 (04:00→20:00)
--- NOTE | 2016-09-17 05:23 | MG ---
cc: ANDREA GUAN M.D. Lab No: Date: 09/16/2016 Age: 61 Sex: M Race: An EEG was obtained on the 61-year-old patient being evaluated for seizures. MEDICATIONS 1. Dilantin. 2. Vimpat. 3. Norvasc. 4. Aspirin. 5. Protonix. 6. Depakene. 7. Topamax. The patient is described as awake and asleep and the EEG shows low-amplitude beta rhythms diffusely. There are some intermixed theta and also some low-amplitude alpha activity. Photic stimulation shows no change. The patient enters sleep Stage I and II at least and the tracing remains symmetrical without paroxysmal discharge. INTERPRETATION This EEG shows mild slowing bilaterally suggestive of mild diffuse disturbance of cerebral function. No epileptiform features present. MD ELIJAH Marie/ENRIQUE /7:55 PM /5:20 AM
[2016-09-17] MEDS: amLODIPine BESYLATE 5 MG TAB PO SCH ×2 (09:00→21:59)
[2016-09-17] MEDS: SODIUM CHLORIDE 0.9% FLUSH 5 ML FLUSH FLUSH SCH ×2 (09:00→22:00)
[2016-09-17] MEDS: DEXTROSE 5% IN WATE 1000ML INJ 1,000 ML IV SCH (09:16)
[2016-09-17] MEDS: LACTULOSE SYRUP 20 GM/30 ML CUP PO SCH ×3 (09:17→17:39)
[2016-09-17] MEDS: PANTOPRAZOLE SOD 20 MG DELAYED RELEASE TAB PO SCH (09:18)
[2016-09-17] MEDS: LACOSAMIDE 50 MG TAB PO SCH (09:18)
[2016-09-17] MEDS: ASPIRIN 81 MG CHEW TAB CHEW SCH (09:18)
[2016-09-17] MEDS: TOPIRAMATE 25 MG TAB PO SCH ×2 (09:18→21:59)
[2016-09-17] MEDS: PHENYTOIN SUSP 100 MG/4 ML CUP PO SCH ×3 (09:18→17:39)
[2016-09-17] MEDS: VALPROIC ACID SYRUP 250 MG/5 ML UDC PO SCH (09:19)
[2016-09-17] MEDS: cefTRIAXone INJ 1,000 MG in SODIUM CHLORIDE 0.9% INJ 100 ML IV SCH (17:39)
[2016-09-17] MEDS: LACOSAMIDE 100 MG TAB PO SCH (21:00)
[2016-09-18] VITALS (20 sets, daily range): BP systolic 144–148; BP diastolic 84–86; PULSE 74–96; RESP 17; TEMP 97.8–98.6; O2SAT 90–99
--- NOTE | 2016-09-18 01:03 | HHI.PR ---
Subjective Remarks Late entry. Date of service 09/17/16. Patient seen the afternoon of 09/17/16. patient more alert than yesterday. Eyes are open, making good eye contact. Voicing unintelligible words. Appears to deny pain. Objective Vital Signs Date Time Temp Pulse Resp B/P Pulse Ox O2 Delivery O2 Flow Rate FiO2 09/17/16 18:00 77 09/17/16 17:00 72 09/17/16 16:00 65 09/17/16 15:00 98.3 67 16 134/86 99 09/17/16 15:00 86 09/17/16 14:00 78 09/17/16 13:00 66 09/17/16 12:00 60 09/17/16 12:00 70 09/17/16 11:00 97.0 62 18 88/62 100 09/17/16 11:00 63 09/17/16 11:00 65 09/17/16 10:00 68 09/17/16 10:00 75 09/17/16 09:05 77 09/17/16 08:00 77 09/17/16 08:00 74 09/17/16 08:00 97.9 73 19 99/63 99 09/17/16 07:00 97.9 73 19 99/63 99 09/17/16 07:00 76 09/17/16 06:18 79 09/17/16 05:15 61 09/17/16 04:11 70 09/17/16 03:50 98.4 75 18 119/76 98 09/17/16 03:00 69 09/17/16 02:27 80 09/17/16 01:19 60 I/O 09/17/16 09/17/16 09/17/16 09/18/16 09/18/16 09/18/16 07:00 15:00 23:00 07:00 15:00 23:00 Intake Total 1510 ml 1197 ml Output Total 400 ml 300 ml 650 ml Balance 1110 ml -300 ml 547 ml Intake Oral 360 ml 1197 ml IV Total 1150 ml Output Urine Total 400 ml 300 ml 650 ml # Voids 5 # Bowel Movements 5 Result Diagram: 09/16/16213409/16/162134 Objective Remarks GENERAL: Appears comfortable. Breathes deeply on command. awake, more alert.. SKIN: Warm and dry. HEAD: Normocephalic. EYES: No scleral icterus. No injection or drainage. NECK: Supple, trachea midline. No JVD. CARDIOVASCULAR: Regular rate and rhythm without murmurs, gallops, or rubs. RESPIRATORY: Breath sounds equal bilaterally. No accessory muscle use. GASTROINTESTINAL: Abdomen soft, non-tender, nondistended. MUSCULOSKELETAL: No cyanosis, or edema. BACK: Nontender without obvious deformity. No CVA tenderness. A/P Assessment and Plan //Encephalopathy may be due to multifactorial including hepatic encephalopathy and metabolic encephalopathy from hypernatremia. - Urinary tract infection. Continue antibiotics. -Continue lactulose for hepatic cephalopathy. -May be secondary to valproic acid. Neurology tapering. Appreciate assistance. =mental status is improving with tapering valproic acid. Appreciate nephrology assistance. Repeat ammonia level tomorrow. //Hepatic encephalopathy //Suspected underlying liver disease. Past history of alcoholism - currently on lactulose and will monitor ammonia levels. continue to monitor. -repeat ammonia level tomorrow. //Hypernatremia.resolved. -Sodium levels trending down. Continue fluid hydration. Continue to monitor sodium levels. =we will discontinue fluids, monitor response. //RhabdomyolysisIV fluid hydration was CPK trending down -CK improving. Continue to monitor. Potassium stable. //Acute kidney injury superimposed on chronic kidney disease stage II. -Possibly secondary to dehydration, rhabdomyolysis. -Resolved with fluids. //Hypertension, essential and chronicNorvasc, currently blood pressure acceptable. Continue to monitor //CADwife was told by medical diagnostic radiographer on routine checkup/EKGs. No PCI. Continue aspirin. //COPD, chronicnot in any acute exacerbation. //History of DVTbilateral upper extremitiesreport that repeat ultrasound done about 3 months ago was negative. He was therefore taken out of anticoagulation then. //History of CVAs -Continue aspirin. Continue physical therapy //History of recurrent grand mal seizuresno recurrent seizures here during hospitalization, will continue with Dilantin and Depakote, Topamax, and home anticonvulsants. - stated that his neurologist has recommended starting to taper off Dilantin next week as patient was just started on Topamax recently. -We'll need to follow-up with neurologist as outpatient. //DVT prophylaxison SCD , no anticoagulation due to underlying liver disease GI prophylaxis on pantoprazole Discharge Planning Discharge Planning has good social and caregiver support along with proper durable medical equipment at home. -tapering valproic acid. Continue to monitor ammonia levels. Possible discharge home tomorrow Obie Ulrich MD Sep 18, 2016 01:03
[2016-09-18] MEDS: FREE WATER PO SCH ×5 (04:00→16:00)
[2016-09-18 06:24] LABS: AUTOMATED NEUTROPHIL # 5.4 TH/MM3 (1.8-7.7); BASOPHIL # 0.1 TH/MM3 (0-0.2); BASOPHIL % 0.7 % (0.0-2.0); EOSINOPHIL # 0.2 TH/MM3 (0-0.4); EOSINOPHIL % 2.1 % (0.0-4.0); HEMATOCRIT 35.1 % (39.0-51.0); HEMO FLAGS DIFF FINAL; LYMPH % 24.1 % (9.0-44.0); MEAN CELL VOLUME 93.9 FL (80.0-100.0); MEAN CORPUSCULAR HEMOGLOBIN 32.6 PG (27.0-34.0); MEAN CORPUSCULAR HGB CONC 34.8 % (32.0-36.0); MONO % 9.5 % (0.0-8.0); NEUT % 63.6 % (16.0-70.0); PLATELET COUNT 228 TH/MM3 (150-450); RED BLOOD COUNT 3.73 MIL/MM3 (4.50-5.90); RED CELL DISTRIBUTION WIDTH 13.5 % (11.6-17.2); WHITE BLOOD COUNT 8.5 TH/MM3 (4.0-11.0)
[2016-09-18 06:36] LABS: MAGNESIUM 1.9 MG/DL (1.5-2.5)
[2016-09-18] MEDS: TOPIRAMATE 25 MG TAB PO SCH (09:46)
[2016-09-18] MEDS: ASPIRIN 81 MG CHEW TAB CHEW SCH (09:46)
[2016-09-18] MEDS: LACOSAMIDE 50 MG TAB PO SCH (09:46)
[2016-09-18] MEDS: PANTOPRAZOLE SOD 20 MG DELAYED RELEASE TAB PO SCH (09:46)
[2016-09-18] MEDS: LACTULOSE SYRUP 20 GM/30 ML CUP PO SCH ×2 (09:47→13:00)
[2016-09-18] MEDS: PHENYTOIN SUSP 100 MG/4 ML CUP PO SCH ×2 (09:47→13:02)
[2016-09-18] MEDS: amLODIPine BESYLATE 5 MG TAB PO SCH (09:47)
[2016-09-18] MEDS: VALPROIC ACID SYRUP 250 MG/5 ML UDC PO SCH (09:48)
[2016-09-18] MEDS: SODIUM CHLORIDE 0.9% FLUSH 5 ML FLUSH FLUSH SCH (09:49)
[2016-09-18] MEDS ORDERED: VALP250S2 PO (10:40)
--- NOTE | 2016-09-18 10:41 | HHI.FF ---
Face to Face Verification Diagnosis: (1) Altered mental status (2) Seizures (3) Dementia Physical Therapy Order: Evaluate and Treat Occupational Therapy Order: Evaluate and Treat Home Health Nursing Order: Nursing assessment with vital signs Home Health Aide Order: To Assist In: Bathing and personal care I have seen patient Tacho Jimenez on 09/18/16. My clinical findings support the need for the requested home health care services because: Deconditioned w/ increased weakness I certify that my clinical findings support that this patient is homebound because: Unsafe to leave home unassisted Unable to use public transportation Obie Ulrich MD Sep 18, 2016 10:41
[2016-09-18] MEDS ORDERED: LACT10SO PO (10:42)
--- NOTE | 2016-09-28 17:35 | HHI.PR ---
Subjective Remarks Date of service 09/18/16. nonverbal. Makes good eye contact. Objective Objective Remarks GENERAL: Appears comfortable. Breathes deeply on command. awake, more alert..no appreciable change from day prior. SKIN: Warm and dry. HEAD: Normocephalic. EYES: No scleral icterus. No injection or drainage. NECK: Supple, trachea midline. No JVD. CARDIOVASCULAR: Regular rate and rhythm without murmurs, gallops, or rubs. RESPIRATORY: Breath sounds equal bilaterally. No accessory muscle use. GASTROINTESTINAL: Abdomen soft, non-tender, nondistended. MUSCULOSKELETAL: No cyanosis, or edema. BACK: Nontender without obvious deformity. No CVA tenderness. A/P Assessment and Plan //Encephalopathy may be due to multifactorial including hepatic encephalopathy and metabolic encephalopathy from hypernatremia. - Urinary tract infection. Continue antibiotics. -Continue lactulose for hepatic cephalopathy. -May be secondary to valproic acid. Neurology tapering. Appreciate assistance. =mental status is improved with tapering valproic acid. Appreciate neurologyassistance. Repeat ammonia level tomorrow. //Hepatic encephalopathy //Suspected underlying liver disease. Past history of alcoholism - continue on lactulose. //Hypernatremia.resolved. -Sodium levels trending down. Continue fluid hydration. Continue to monitor sodium levels. //RhabdomyolysisIV fluid hydration was CPK trending down -CK improving. Continue to monitor. Potassium stable. //Acute kidney injury superimposed on chronic kidney disease stage II. -Possibly secondary to dehydration, rhabdomyolysis. -Resolved with fluids. //Hypertension, essential and chronicNorvasc, currently blood pressure acceptable. Continue to monitor //Tamar was told by staffing manager on routine checkup/EKGs. No PCI. Continue aspirin. //COPD, chronicnot in any acute exacerbation. //History of DVTbilateral upper extremitiesreport that repeat ultrasound done about 3 months ago was negative. He was therefore taken out of anticoagulation then. //History of CVAs -Continue aspirin. Continue physical therapy //History of recurrent grand mal seizuresno recurrent seizures here during hospitalization, will continue with Dilantin and Depakote, Topamax, and home anticonvulsants. - stated that his neurologist has recommended starting to taper off Dilantin next week as patient was just started on Topamax recently. -We'll need to follow-up with neurologist as outpatient. //DVT prophylaxison SCD , no anticoagulation due to underlying liver disease GI prophylaxis on pantoprazole Discharge Planning Discharge Planning has good social and caregiver support along with proper durable medical equipment at home. -tapering valproic acid. -discharge home with family Obie Ulrich MD Sep 28, 2016 17:35
--- NOTE | 2016-09-28 17:40 | HHI.DS ---
Discharge Summary Admission Date Sep 10, 2016 at 23:15 Discharge Date: Sep 18, 2016 Admitting Diagnosis Dehydration, Rhabdomyolysis, ARF, Hepatic encephalopathy (1) Metabolic encephalopathy ICD Code: G93.41 (2) Altered mental status ICD Code: R41.82 (3) Hypernatremia ICD Code: E87.0 (4) VLAD (acute kidney injury) ICD Code: N17.9 (5) Dehydration ICD Code: E86.0 (6) Rhabdomyolysis ICD Code: M62.82 (7) UTI (lower urinary tract infection) ICD Code: N39.0 (8) Hepatic encephalopathy ICD Code: K72.90 Procedures no invasive procedures performed. Brief History - From Admission History from patient's , ER physician communication, and review of medical records. Patient's is at the bedside. She stated that patient is usually not able to give history. Patient can speak at baseline although the speech is incomprehensible and she can usually understand him. However for the past 3 weeks or so, patient has been declining slowly. She stated that patient has been more and more sleeping, noncommunicative, and mostly lying in bed. His baseline usually is that he would sit up on the wheelchair with her and eat by himself and feed himself. He usually eats regular consistency meals. Patient's stated that patient was also constipated for the past 1 week. She denies any melena or hematemesis. However noted some blood in his penis which she was thinking maybe secondary to urinary tract infection. Denies any jimmy blood in his toilet bowl. Patient is usually incontinent with urine and stool. stated that with this mental confusion and lethargy, patient was also noted to have some breathing pattern and which she states happened in the middle of the night where he would stop breathing and then to breathe all over again suddenly. She believes that he has subjective fevers. She did not measure it. Imaging Last Impressions Head CT 09/10/162058 Signed Impressions: Service Date/Time: Saturday, September 10, 2016 21:39 - CONCLUSION: No significant change compared to prior study. No evidence of acute infarct or hemorrhage. Andrew Mata MD Chest X-Ray 09/10/[id number] Signed Impressions: Service Date/Time: Saturday, September 10, 2016 21:21 - CONCLUSION: No acute disease. Andrew Mata MD PE at Discharge GENERAL: This is a well-nourished, well-developed patient, in no apparent distress. CARDIOVASCULAR: Regular rate and rhythm RESPIRATORY: Clear to auscultation. Breath sounds equal bilaterally. No wheezes , rales, or rhonchi. GASTROINTESTINAL: Abdomen soft, obese, non-tender, nondistended. Normal active bowel sounds MUSCULOSKELETAL: Extremities without clubbing, cyanosis, trace edema NEURO: Alert & Oriented to person and place only, does recognize his . Squeezes with both hands. Generalized weakness lower extremities. Hospital Course Encephalopathy, as well as ammonia level improved with tapering valproic acid levels, as well as adding lactulose.. Appreciate neurology assistance. Valproic acid will need to be tapered further by neurology at follow-up outpatient. For problem-based summary from most recent progress note, please see below. //Encephalopathy may be due to multifactorial including hepatic encephalopathy and metabolic encephalopathy from hypernatremia. - Urinary tract infection. Continue antibiotics. -Continue lactulose for hepatic cephalopathy. -May be secondary to valproic acid. Neurology tapering. Appreciate assistance. =mental status is improved with tapering valproic acid. Appreciate neurologyassistance. Repeat ammonia level tomorrow. //Hepatic encephalopathy //Suspected underlying liver disease. Past history of alcoholism - continue on lactulose. //Hypernatremia.resolved. -Sodium levels trending down. Continue fluid hydration. Continue to monitor sodium levels. //RhabdomyolysisIV fluid hydration was CPK trending down -CK improving. Continue to monitor. Potassium stable. //Acute kidney injury superimposed on chronic kidney disease stage II. -Possibly secondary to dehydration, rhabdomyolysis. -Resolved with fluids. //Hypertension, essential and chronicNorvasc, currently blood pressure acceptable. Continue to monitor //CADwife was told by percussion instructor on routine checkup/EKGs. No PCI. Continue aspirin. //COPD, chronicnot in any acute exacerbation. //History of DVTbilateral upper extremitiesreport that repeat ultrasound done about 3 months ago was negative. He was therefore taken out of anticoagulation then. //History of CVAs -Continue aspirin. Continue physical therapy //History of recurrent grand mal seizuresno recurrent seizures here during hospitalization, will continue with Dilantin and Depakote, Topamax, and home anticonvulsants. - stated that his neurologist has recommended starting to taper off Dilantin next week as patient was just started on Topamax recently. -We'll need to follow-up with neurologist as outpatient. //DVT prophylaxison SCD , no anticoagulation due to underlying liver disease GI prophylaxis on pantoprazole Discharge Planning Discharge Planning has good social and caregiver support along with proper durable medical equipment at home. -tapering valproic acid. -discharge home with family Pt Condition on Discharge: Good Discharge Disposition: Disch w/ Home Health Serv Discharge Time: <= 30 minutes Discharge Instructions DIET: Follow Instructions for: As Tolerated, No Restrictions Speech Therapy-Diet Recommends: Mechanical Soft Additional Diet Instructions: 200 mL of water (or other fluid without salt) every 4 hours Activities you can perform: Regular-No Restrictions Follow up Referrals: Neurology - 3-5 Days with Jeremy Ricks MD PCP Follow-up - 1 Week with Alida Galicia DO New Medications: Lactulose Liq (Lactulose Liq) 10 Gm/15 Ml Soln 30 ML PO BID encephalopathy #1800 ML Changed Medications: Valproic Acid Liq (Valproic Acid Liq) 250 Mg/5 Ml Syp 250 MG PO DAILY Follow-up with neurology to further decrease dose of this medication. Seizure #300 Ref 0 ML (Changed from: 500 MG; BID) Continued Medications: Amlodipine (Amlodipine) 5 Mg Tab 5 MG PO BID Blood Pressure Management #30 Ref 0 TAB Aspirin (Aspirin) 81 Mg Chew 162 MG CHEW DAILY Ref 0 TAB Lacosamide (Vimpat) 150 Mg Tab 150 MG PO DAILY Control Seizures #60 Ref 0 TAB Lacosamide (Vimpat) 200 Mg Tab 200 MG PO HS Control Seizures #60 Ref 0 TAB Lorazepam (Lorazepam) 1 Mg Tab 1 MG PO DAILY PRN ANXIETY Ref 0 TAB Omeprazole (Omeprazole) 20 Mg Tab 20 MG PO DAILY #30 Ref 0 TAB Phenytoin Liq (Dilantin-125 Liq) 125 Mg/5 Ml Susp 100 MG PO Q8HR Control Seizures #237 Ref 0 ML Topiramate Sprinkle (Topamax Sprinkle) 25 Mg Cap 50 MG PO BID Control Seizures Days 30 Ref 0 CAP Obie Ulrich MD Sep 28, 2016 17:40
== END 2016-09-18 16:35 | disposition home health service (06) | DRG 441 ==
LOC: NEPE 20:49 → NEDA 23:15 → NEDH 09-11 03:15 → HCIN 09-11 21:32 → HCIS 09-16 01:33
PROVIDERS: ADMIT Internal Medicine; ATTEND Internal Medicine
DX: K72.90 Hepatic failure, unspecified without coma (principal); G93.41 Metabolic encephalopathy; N17.9 Acute kidney failure, unspecified; E87.0 Hyperosmolality and hypernatremia; M62.82 Rhabdomyolysis; R56.9 Unspecified convulsions; N39.0 Urinary tract infection, site not specified; J44.9 Chronic obstructive pulmonary disease, unspecified; F32.9 Major depressive disorder, single episode, unspecified; F41.9 Anxiety disorder, unspecified; E78.5 Hyperlipidemia, unspecified; E86.0 Dehydration; I25.10 Atherosclerotic heart disease of native coronary artery without angina pectoris; I12.9 Hypertensive chronic kidney disease with stage 1 through stage 4 chronic kidney disease, or unspecified chronic kidney disease; K76.9 Liver disease, unspecified; N18.2 Chronic kidney disease, stage 2 (mild); Z87.891 Personal history of nicotine dependence; Z87.820 Personal history of traumatic brain injury; I69.398 Other sequelae of cerebral infarction; Z86.718 Personal history of other venous thrombosis and embolism; Z79.01 Long term (current) use of anticoagulants
CPT/HCPCS: 70450; 71010; 76937; 80048; 80053; 80069; 80164; 80185; 80307; 81001; 82140; 82550; 82552; 83605; 83690; 83735; 83880; 84155; 84443; 84484; 85025; 85610; 85730; 86140; 86403; 87040; 87077; 87086; 87186; 87641; 93005; 95819; 96360; J0692; J0696; J2270; J3370; J7030; J7040; J7050; J7070

== ENCOUNTER 2017-09-06 02:11 | Inpatient (IN) | payer MEDICARE, OTHER ==
[~2017-09-06] VITALS: Ht 172.7 cm; Wt 78.4 kg
[2017-09-06] VITALS (8 sets, daily range): BP systolic 107–173; BP diastolic 52–81; PULSE 52–86; RESP 17–20; TEMP 95.3–98.6; O2SAT 97–100
[~2017-09-06 02:11] MED LIST changes: +AMLO5 PO; +ASPI-516 CHEW; -ASPI81CH CHEW; +FERR150C PO; +LACT10SO PO; +LIVA2TAB PO; -OMEP20TA PO; +OMEP20TA93 PO; +TOPA50TA7 PO; +VITA100T54 PO
[2017-09-06] MEDS ORDERED: GABA300C5 PO (02:47)
[2017-09-06] MEDS ORDERED: METO50TA PO (02:47)
[2017-09-06] MEDS ORDERED: SODIUM CHLOR 0.9% 1000 ML INJ 1,000 ML IV ONE (03:22)
[2017-09-06] MEDS ORDERED: SODIUM CHLORIDE 0.9% FLUSH 10 ML FLUSH IVF PRN (03:30)
[2017-09-06 04:23] LABS: AUTOMATED NEUTROPHIL # 5.2 TH/MM3 (1.8-7.7); BASOPHIL # 0.1 TH/MM3 (0-0.2); BASOPHIL % 0.9 % (0.0-2.0); EOSINOPHIL # 0.1 TH/MM3 (0-0.4); EOSINOPHIL % 0.8 % (0.0-4.0); HEMATOCRIT 44.9 % (39.0-51.0); HEMOGLOBIN 15.3 GM/DL (13.0-17.0); LYMPH % 25.3 % (9.0-44.0); MEAN CELL VOLUME 90.1 FL (80.0-100.0); MEAN CORPUSCULAR HEMOGLOBIN 30.7 PG (27.0-34.0); MEAN PLATELET VOLUME 8.3 FL (7.0-11.0); MONO % 6.9 % (0.0-8.0); MONOCYTE # 0.5 TH/MM3 (0-0.9); NEUT % 66.1 % (16.0-70.0); PLATELET COUNT 191 TH/MM3 (150-450); RED BLOOD COUNT 4.98 MIL/MM3 (4.50-5.90); WHITE BLOOD COUNT 7.8 TH/MM3 (4.0-11.0)
--- NOTE | 2017-09-06 04:25 | RADRPT ---
EXAM DATE/TIME: 09/06/2017 03:46 [facility] COMPARISON: No previous studies available for comparison. INDICATIONS : Altered mental status. RADIATION DOSE: 61.36 CTDIvol (mGy) MEDICAL HISTORY : Non-responsive. SURGICAL HISTORY : Non-responsive. ENCOUNTER: Initial ACUITY: 1 day PAIN SCALE: 0/10 LOCATION: cranial TECHNIQUE: Multiple contiguous axial images were obtained of the head. Using automated exposure control and adj ustment of the mA and/or kV according to patient size, radiation dose was kept as low as reasonably a chievable to obtain optimal diagnostic quality images. DICOM format image data is available electro nically for review and comparison. FINDINGS: Chronic subdural hematomas are again seen along both convexities. The left subdural is slightly large r, and 21 mm in maximal thickness currently. There is approximately 9 mm of rightward midline shift w hich is also slightly increased. No acute blood products are demonstrated. Large area of encephalomalacia of the right cerebral hemisphere again seen. No evidence of an acute i schemic event. No mass lesion demonstrated. CONCLUSION: 1. Left greater than right subdural hematomas, chronic but slightly larger in the interim and with cu rrently 9 mm of rightward midline shift. No acute blood seen. 2. Large area of severe encephalomalacia of the right cerebral hemisphere. No acute ischemic event se en.. Jeff Dunn MD on September 06, 2017 at 4:21 Board Certified Radiologist. This report was verified electronically.
[2017-09-06 04:35] LABS: BLOOD UREA NITROGEN 11 MG/DL (7-18); CALCIUM 11.3 MG/DL (8.5-10.1); CHLORIDE 115 MEQ/L (98-107); CREATININE 1.08 MG/DL (0.60-1.30); GLOMERULAR FILTRATION RATE 83 ML/MIN (>89); GLUCOSE,RANDOM 73 MG/DL (74-106); MAGNESIUM 2.3 MG/DL (1.5-2.5); SODIUM (NA) 146 MEQ/L (136-145)
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
[2017-09-06] MEDS: DEXT 5%-NACL 0.45% 1000 ML INJ 1,000 ML IV SCH ×3 (05:43→20:45)
[2017-09-06] MEDS ORDERED: SENNOSIDES 8.6 MG TAB PO PRN (08:00)
[2017-09-06] MEDS ORDERED: NALOXONE HCL 0.4 MG/ML AMP IV PUSH PRN (08:00)
[2017-09-06] MEDS ORDERED: ONDANSETRON HCL 4 MG/2 ML VIAL IVP PRN (08:00)
[2017-09-06] MEDS ORDERED: SODIUM CHLORIDE 0.9% FLUSH 10 ML FLUSH IV FLUSH PRN ×2 (08:00)
[2017-09-06] MEDS ORDERED: LACTULOSE SYRUP 20 GM/30 ML CUP PO PRN (08:00)
[2017-09-06] MEDS ORDERED: MAGNESIUM HYDROXIDE SUSP 30 ML CUP PO PRN (08:00)
[2017-09-06] MEDS ORDERED: ENOXAPARIN SODIUM 40 MG/0.4 ML SYRINGE SQ SCH (08:00)
[2017-09-06] MEDS ORDERED: BISACODYL 10 MG SUPP RECTAL PRN (08:00)
[2017-09-06] MEDS: SODIUM CHLORIDE 0.9% FLUSH 10 ML FLUSH IV FLUSH SCH ×2 (08:56→21:00)
[2017-09-06] MEDS ORDERED: SODIUM CHLORIDE 0.9% FLUSH 10 ML FLUSH IV FLUSH SCH (09:00)
[2017-09-06] MEDS: DOCUSATE SODIUM 50 MG/SENNA 8.6 MG TAB PO SCH ×2 (09:42→20:36)
--- NOTE | 2017-09-06 12:49 | EKG ---
Date Performed: 09/06/2017 Time Performed: 04:31:24 PTAGE: 62 years EKG: Sinus rhythm WITH FIRST DEGREE AV BLOCK ABNORMAL ECG PREVIOUS TRACING : 05/07/2017 01.33 No significant change from previous tracing noted. DOCTOR: Mike Read Interpretating Date/Time 09/06/2017 12:47:27
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
[2017-09-06] MEDS ORDERED: ENALAPRILAT 2.5 MG/2 ML VIAL IV PUSH PRN (13:15)
[2017-09-06] MEDS ORDERED: LORazepam 1 MG TAB PO PRN (13:15)
[2017-09-06 13:23] LABS: AMORPHOUS SEDIMENT, URINE FEW; BACTERIA, URINE FEW /hpf; BILIRUBIN, URINE NEG (NEG); BLOOD, URINE NEG (NEG); GLUCOSE,URINE NEG (NEG); KETONE, URINE NEG (NEG); MUCUS URINE FEW /lpf (OCC); NITRITE,URINE POS (NEG); PH, URINE 6.5 (5.0-8.5); SQUAMOUS EPITHELIAL CELL URINE 1 /hpf (0-5); URINE COLOR YELLOW (YELLW/STRAW); URINE LEUKOCYTE ESTERASE LARGE (NEG)
[2017-09-06] MEDS ORDERED: TOPIRAMATE 100 MG TAB PO ONE (13:30)
--- NOTE | 2017-09-06 17:01 | MB ---
cc: ANDREA GUAN M.D. DATE OF CONSULTATION 09/06/17 He is a 62-year-old man seen in neurological consultation in regards to seizures. The case discussed with Dr. Chou earlier today. The patient was brought in because of some focal facial seizures last evening. This involved the right side and there was some staring as well, although the said this was different from the usual seizures. Apparently, the daughter says that he has been having seizures like these before as well. He has had seizures apparently since 2012, after he had a stroke. He has had a couple of strokes and the records also indicates some head injury with a subdural hematoma. He has had nica hole treatment for subdural hematoma in the past. It appears that he has had seizures difficult to be controlled in the past, perhaps in relationship to the nica holes as the felt the nica hole treatment made him more stuporous. He has been followed by Dr. Ricks for the seizures. He takes Vimpat 200 mg twice a day, Topamax 50 mg twice a day and also gabapentin 300 mg hs for the seizures. In the emergency room today, he was not having any seizures as they essentially resolved after the patient came to the ER. When I see him, he was somewhat lethargic but with stimulation he participates some on the exam. There is some spontaneous limb movements. He has some left-sided weakness with some spasticity in the left distal upper extremity. There is probable left facial weakness. He did mumble intermittently, but did not really express himself in any other way. His reflexes were diminished throughout, but plantar responses were extensor bilaterally. The CT brain was reviewed. ASSESSMENT AND PLAN Seizure recurrence involving right face and staring last evening, which seems to be resolved As discussed with Dr. Chou. Maintain the Vimpat and I have increased the topiramate to 100 mg twice a day. Maintain the gabapentin as is. Subdural hematoma/hygromas, left greater than right 45, some mass effect left to the right. The neurosurgical consultation was requested. This may be worse than before. That is why we suggested getting a neurosurgical opinion. He also has a large area of encephalomalacia on the right cerebral hemisphere. No suggestions of acute ischemic event. I will follow the neurological care. EEG to be obtained. MD LASHAY Marie /12:12 PM /4:36 PM
--- NOTE | 2017-09-06 19:56 | MG ---
cc: ANDREA GUAN M.D. Lab No: Date: 09/05/2017 Age: 62 Sex: M Race: REQUESTING PHYSICIAN: Dr. Baer. An EEG was obtained on this 62-year-old patient being evaluated for subdural hematomas, left greater than right, and seizures. The patient is described as awake and asleep. This EEG shows low amplitude rhythms including beta activity and some theta and delta rhythms. There is alpha activity as well. At times there is more of the slower rhythm on the right than left. The patient is snoring and asleep intermittently. Photic stimulation was unremarkable. INTERPRETATION: Abnormal EEG because of bilateral abnormalities possibly right more than left suggesting bilateral structural abnormalities. There are some sharp waves on the right but no definite T-wave epileptiform discharge present. No ictal pattern. MD ELIJAH Marie/[facility] /7:36 PM /7:51 PM
[2017-09-06] MEDS: LACOSAMIDE 100 MG TAB PO SCH (20:35)
[2017-09-06] MEDS: LACTULOSE SYRUP 20 GM/30 ML CUP PO SCH (20:35)
[2017-09-06] MEDS: METOPROLOL TARTRATE 50 MG TAB PO SCH (20:35)
[2017-09-06] MEDS: TOPIRAMATE 100 MG TAB PO SCH (20:36)
[2017-09-06] MEDS: GABAPENTIN 300 MG CAP PO SCH (20:36)
[2017-09-07] VITALS (13 sets, daily range): BP systolic 80–155; BP diastolic 51–98; PULSE 66–136; RESP 16–24; TEMP 97.5–103.7; O2SAT 95–100
[2017-09-07] MEDS ORDERED: ACETAMINOPHEN 650 MG SUPP RECTAL ONE (04:00)
[2017-09-07] MEDS ORDERED: cefTRIAXone INJ 2,000 MG in SODIUM CHLORIDE 0.9% INJ 100 ML IV SCH (04:15)
[2017-09-07] MEDS ORDERED: LACTATED RINGER'S 1000 ML INJ 1,000 ML IV SCH (04:30)
[2017-09-07] MEDS ORDERED: LACTATED RINGER'S 1000 ML INJ 1,000 ML IV ONE (04:30)
--- NOTE | 2017-09-07 04:35 | RADRPT ---
EXAM DATE/TIME: 09/07/2017 04:15 [facility] COMPARISON: CHEST SINGLE AP, April 02, 2017, 5:41. INDICATIONS : Shortness of breath MEDICAL HISTORY : None. SURGICAL HISTORY : None. ENCOUNTER: Initial ACUITY: 1 day PAIN SCORE: Non-responsive. LOCATION: Bilateral chest FINDINGS: Mild, patchy and ill-defined airspace opacities of the left base. Right lung reasonably clear. No ple ural effusion seen. No pneumothorax. Heart size stable, within normal limits. CONCLUSION: Early or mild pneumonia suspected left base. Jeff Dunn MD on September 07, 2017 at 4:33 Board Certified Radiologist. This report was verified electronically.
[2017-09-07] MEDS: DEXT 5%-NACL 0.45% 1000 ML INJ 1,000 ML IV SCH (04:48)
[2017-09-07 04:54] LABS: HEMATOCRIT 41.6 % (39.0-51.0); HEMOGLOBIN 14.4 GM/DL (13.0-17.0); MEAN CELL VOLUME 88.9 FL (80.0-100.0); MEAN CORPUSCULAR HEMOGLOBIN 30.7 PG (27.0-34.0); MEAN CORPUSCULAR HGB CONC 34.6 % (32.0-36.0); MEAN PLATELET VOLUME 8.6 FL (7.0-11.0); PLATELET COUNT 149 TH/MM3 (150-450); RED BLOOD COUNT 4.68 MIL/MM3 (4.50-5.90); RED CELL DISTRIBUTION WIDTH 13.9 % (11.6-17.2); WHITE BLOOD COUNT 6.7 TH/MM3 (4.0-11.0)
[2017-09-07] MEDS ORDERED: Vancomycin Consult Pharmacy 1 EA OTHER SCH (05:00)
[2017-09-07] MEDS ORDERED: CIPROFLOXACIN 400 MG PREMIX 200 ML IV SCH (05:00)
[2017-09-07] MEDS ORDERED: VANCOMYCIN 1 GM/200 ML PREMIX IV ONE (05:00)
[2017-09-07 05:31] LABS: ALBUMIN 3.8 GM/DL (3.4-5.0); ALKALINE PHOSPHATASE 133 U/L (45-117); ALT (GPT) 24 U/L (12-78); AST (GOT) 29 U/L (15-37); BICARBONATE 17.3 MEQ/L (21.0-32.0); BLOOD UREA NITROGEN 8 MG/DL (7-18); CALCIUM 10.3 MG/DL (8.5-10.1); CHLORIDE 116 MEQ/L (98-107); CREATININE 1.12 MG/DL (0.60-1.30); GLOMERULAR FILTRATION RATE 80 ML/MIN (>89); GLUCOSE,RANDOM 127 MG/DL (74-106); SODIUM (NA) 142 MEQ/L (136-145); TOTAL BILIRUBIN ADULT 0.9 MG/DL (0.2-1.0); TOTAL PROTEIN 8.1 GM/DL (6.4-8.2)
[2017-09-07] MEDS ORDERED: PIPERACIL-TAZO 4.5 GM PREMIX 100 ML IV SCH ×2 (06:00→10:15)
[2017-09-07 06:03] LABS: BANDS 7 % (0-6); LYMPHOCYTES 8 % (9-44); MONOCYTES 1 % (0-8); NEUTROPHIL # MANUAL DIFF 6.1 TH/MM3 (1.8-7.7); POLYS (SEG NEUTROPHILS) 84 % (16-70)
[2017-09-07 06:04] LABS: TOXIC VACUOLATION PRESENT (NONE SEEN)
[2017-09-07] MEDS ORDERED: CHLORHEXIDINE GLUCONATE 2 % 1 PACK (2 CLOTHS)(extra cloths) TOPICAL PRN (06:15)
[2017-09-07] MEDS: LACTULOSE SYRUP 20 GM/30 ML CUP PO SCH ×2 (09:00→20:54)
[2017-09-07] MEDS: ASPIRIN 81 MG CHEW TAB CHEW SCH (09:00)
[2017-09-07] MEDS: TOPIRAMATE 100 MG TAB PO SCH ×2 (09:00→21:41)
[2017-09-07] MEDS: amLODIPine BESYLATE 5 MG TAB PO SCH (09:00)
[2017-09-07] MEDS ORDERED: NON-FORMULARY DRUG (Omeprazole 20 MG) PO SCH (09:00)
[2017-09-07] MEDS: PRAVASTATIN SOD 40 MG TAB PO SCH (09:00)
[2017-09-07] MEDS: DOCUSATE SODIUM 50 MG/SENNA 8.6 MG TAB PO SCH ×2 (09:00→20:55)
[2017-09-07] MEDS: LACOSAMIDE 100 MG TAB PO SCH ×2 (09:00→21:41)
[2017-09-07] MEDS: THIAMINE HCL 100 MG TAB PO SCH (09:00)
[2017-09-07] MEDS: METOPROLOL TARTRATE 50 MG TAB PO SCH ×2 (09:00→21:41)
[2017-09-07] MEDS ORDERED: INFLUENZA VIRUS VACCINE (QUADRIVALENT) 0.5 ML SYR IM ONE (10:00)
[2017-09-07] MEDS ORDERED: SODIUM CHLOR 0.9% 1000 ML INJ 1,000 ML IV ONE ×2 (10:03→11:00)
[2017-09-07] MEDS ORDERED: VANCOMYCIN 500 MG/NS 100 ML IV ONE ×2 (11:00)
[2017-09-07] MEDS: SODIUM CHLORIDE 0.9% FLUSH 10 ML FLUSH IV FLUSH SCH ×2 (11:19→21:00)
[2017-09-07] MEDS: cefTRIAXone 2,000 MG/NS 100 ML IV SCH ×2 (11:26)
[2017-09-07 11:55] LABS: LACTIC ACID SEPSIS PROTOCOL 2.6 mmol/L (0.4-2.0)
[2017-09-07] MEDS ORDERED: SODIUM CHLOR 0.9% 1000 ML INJ 400 ML IV ONE (12:00)
--- NOTE | 2017-09-07 12:23 | MB ---
cc: EDIN WATSON ROHIT K. M.D. VINAS, FEDERICO C. M.D. DATE OF CONSULTATION: 09/06/2017. REASON FOR CONSULTATION: Left chronic subdural hygroma. HISTORY OF PRESENT ILLNESS: This is a 62-year-old -Thai gentleman with a history of bilateral subdural hygromas, left more than right, along with the right frontotemporal encephalomalacia. He has had multiple surgeries at [facility] in [place] as well as two left bur hole drainages by Dr. Kulkarin from neurosurgery here with the last surgery in November of 2013. He has had persistent left large subdural hygroma with midline shift, which is chronic. He also has a history of recurrent seizures and is being followed by neurology. He presented to the emergency room on 09/06/2017 with a focal motor seizures. Followup CT scan of the head reveals a persistent left chronic subdural hygroma with about 8-9 mm midline shift along with right hemisphere encephalomalacia. The subdural hygromatous collection does not appear to have changed from the previous CT scan from April of 2017, and on my evaluation, the midline shift is also similar. Neurology was consulted and requested neurosurgical re-evaluation. I am covering for Dr. Kulkarni over the weekend. The patient, given his history of strokes and traumatic brain injury, is not very communicative and occasionally will say a few words and also has left-sided weakness which is chronic per the patient's daughter as well as who I was able to discuss his care with. They relate that every time he has had this bur hole subdural drainage, his neurological condition has deteriorated subsequently and they do not want any further surgery. PAST MEDICAL HISTORY: 1. Chronic left subdural hygroma with multiple bur hole drainages, the last two by Dr. Kulkarni from neurosurgery with persistence of the hygroma and mass effect. 2. Stroke. 3. Traumatic brain injury. 4. Recurrent seizures. 5. Hypertension. 6. Coronary artery disease. 7. COPD. 8. History of DVT. MEDICATIONS: His medications include: 1. Amlodipine. 2. Temazepam. 3. Gabapentin. 4. Vimpat. 5. Lactulose. 6. Lorazepam. 7. Metoprolol. 8. Prilosec. 9. Livalo. 10. Iron. 11. Thiamine. 12. Topamax. ALLERGIES: NO KNOWN DRUG ALLERGIES. SOCIAL HISTORY: He is . He is a former smoker. No alcohol use. LABORATORY STUDIES: White blood cell count of 7.8, hemoglobin 15.3, platelet count 191,000. Sodium 146, potassium 4.3, BUN 11, creatinine 1.08, glucose 73. PHYSICAL EXAMINATION: VITAL SIGNS: Temperature 95.8, pulse is 71, respiratory rate 17, blood pressure 173/80, oxygen saturation 97% on room air. GENERAL APPEARANCE: This is an elderly -Thai gentleman in no apparent distress who is awake and follows simple commands. HEAD: No Pinto or raccoon sign. NECK: The neck is supple with a midline trachea. CHEST: Clear bilaterally to auscultation. HEART: Regular rate and rhythm. Normal S1 and S2. No murmurs. ABDOMEN: Abdomen soft and nontender. No hepatosplenomegaly. EXTREMITIES: No cyanosis, edema or deformity. SKIN: No rashes, ecchymosis or lesions. Abdomen: Soft, nontender. No splenomegaly. Extremities: No cyanosis, edema or deformity. Skin: No rashes, ecchymosis or lesions. NEUROLOGICAL EXAMINATION: He is awake, alert. Speech is very dysarthric and he just states a few words. He does move upper and lower extremities, although the left side is weaker and also appears to have some increased rigidity and there is a mild left facial droop noted. Pupils are equal and reactive. Positive Babinski bilaterally. IMPRESSION: 1. Chronic left subdural hygroma with mass effect and midline shift status post multiple bur hole drainages in the past. 2. Recurrent seizures. 3. History of a stroke and traumatic brain injury with overall poor functional baseline neurologic status. PLAN: At this point, given that he has not benefited from previous subdural hygroma drainage and this is a chronic finding, I am not sure if any further intervention will be very successful. In any case, the family is very adamant that they would not like any further surgical intervention and we will honor their wishes. Continue with seizure management as per the neurology service along with physical and occupational therapy involvement to prevent further deconditioning. Dr. Kulkarni will be back on Friday and his opinion can also be obtained since he has been involved in his care in the past. Recommend DVT prophylaxis also. MD JUSTO Cisse/[facility] /11:41 AM /12:03 PM
[2017-09-07] MEDS: ENOXAPARIN SODIUM 40 MG/0.4 ML SYRINGE SQ SCH (14:13)
--- NOTE | 2017-09-07 18:52 | HHI.PR ---
Subjective Remarks Follow up for hypotension, fever, pneumonia, seizure activity. Patient's blood pressure dropped to 90/51 choke reamer today. He also had a temp of 103.7F, HR 136, RR 24. CXR showed left base pneumonia. Initial lactic acid was 1.6. However , a repeat lactic acid was 2.6, 2.7. Patient was given fluid bolus and he responded well with first liter of normal saline. Patient was seen at the presence of his daughter who was feeding him. Patient does not say much due to previous stroke. Objective Vitals Vital Signs Date Time Temp Pulse Resp B/P (MAP) Pulse Ox O2 Delivery O2 Flow Rate FiO2 09/07/17 18:00 121 09/07/17 16:00 99.5 90 16 155/85 (108) 100 09/07/17 16:00 90 09/07/17 15:19 97 21 09/07/17 14:00 66 09/07/17 12:00 98.5 67 18 140/83 (102) 98 09/07/17 12:00 98 09/07/17 10:00 97 09/07/17 08:00 97.5 71 20 80/53 (62) 97 09/07/17 08:00 71 09/07/17 07:31 90 09/07/17 06:43 98.3 90 16 90/51 (64) 95 09/07/17 03:46 103.7 136 24 115/79 (91) 96 09/07/17 03:07 77 09/06/17 20:14 98.6 67 18 152/71 (98) 98 I/O 09/06/17 09/06/17 09/06/17 09/07/17 09/07/17 09/07/17 07:00 15:00 23:00 07:00 15:00 23:00 Intake Total 1000 ml 60 ml 60 ml Balance 1000 ml 60 ml 60 ml Intake Oral 60 ml 60 ml IV Total 1000 ml # Voids 5 # Bowel Movements 1 Result Diagram: 09/07/1740909/07/17 0410 Imaging Last Impressions Chest X-Ray 09/07/17 0000 Signed Impressions: Service Date/Time: Thursday, September 07, 2017 04:15 - CONCLUSION: Early or mild pneumonia suspected left base. Jeff Dunn MD Head CT 09/06/17 0000 Signed Impressions: Service Date/Time: Wednesday, September 06, 2017 03:46 - CONCLUSION: 1. Left greater than right subdural hematomas, chronic but slightly larger in the interim and with currently 9 mm of rightward midline shift. No acute blood seen. 2. Large area of severe encephalomalacia of the right cerebral hemisphere. No acute ischemic event seen.. Jeff Dunn MD Objective Remarks GENERAL: Alert, NAD. Does not talk much - per daughter, this is his baseline. SKIN: Warm and dry. HEAD: Normocephalic. EYES: No scleral icterus. No injection or drainage. NECK: Supple, trachea midline. No JVD or lymphadenopathy. CARDIOVASCULAR: Regular rate and rhythm without murmurs, gallops, or rubs. RESPIRATORY: Breath sounds equal bilaterally. No accessory muscle use. GASTROINTESTINAL: Abdomen soft, non-tender, nondistended. MUSCULOSKELETAL: No cyanosis, or edema. BACK: Nontender without obvious deformity. No CVA tenderness. Procedures EEG INTERPRETATION: Abnormal EEG because of bilateral abnormalities possibly right more than left suggesting bilateral structural abnormalities. There are some sharp waves on the right but no definite T-wave epileptiform discharge present. No ictal pattern. A/P Problem List: (1) Severe sepsis ICD Code: A41.9 - Sepsis, unspecified organism; R65.20 - Severe sepsis without septic shock (2) Pneumonia involving left lung ICD Code: J18.9 - Pneumonia, unspecified organism (3) Gram-negative bacteremia ICD Code: R78.81 - Bacteremia (4) Seizure disorder ICD Code: G40.909 - Epilepsy, unspecified, not intractable, without status epilepticus Assessment and Plan 62 yo male presented to the emergency department on 09/06/2017 having multiple episodes of twitching of the face and staring off unresponsive to voice. did not witness tonic-clonic seizure. In the choke reamer hours of 2017, patient developed hypotension, tachycardia, tachypnea. He also was transiently hypotensive, responded well to 1L of fluid. Abx were started. - Severe sepsis (Temp 103.7, HR 136, RR 24, pneumonia, Lactic acid 2.6, 2.7). - Left base pneumonia - Gram negative bacteremia - Transient hypotension - systolic in the 90s and 80s. - Patient was started on Ceftriaxone 2g Q24hrs and Vancomycin - If patient remains afebrile, we can likely consider switching to IV Levaquin in the next 1-2 days. - Will repeat blood culture tomorrow. - Patient responded well to 1L of NS. Blood pressure came upto 140s systolic. - Chronic subdural hematoma - Neurosurgery evaluated patient. No surgical intervention. - Seizure disorder - Continue Vimpat and Topiramate per neurology. Full code. Lovenox. Total critical care time spent more than 35 minutes. Tabitha Alexander DO Sep 07, 2017 18:52
[2017-09-07] MEDS: GABAPENTIN 300 MG CAP PO SCH (21:41)
[2017-09-08] VITALS (13 sets, daily range): BP systolic 83–147; BP diastolic 56–75; PULSE 54–79; RESP 18–24; TEMP 96.3–98.8; O2SAT 58–100
[2017-09-08] MEDS: CHLORHEXIDINE GLUCONATE 2 % 1 PACK (2 CLOTHS)(taper/protocol) TOPICAL SCH (04:00)
[2017-09-08] MEDS ORDERED: VANCOMYCIN 1,500 MG/NS 500 ML IV SCH ×2 (09:00)
[2017-09-08] MEDS ORDERED: SODIUM CHLOR 0.9% 1000 ML INJ 1,000 ML IV ONE (09:00)
[2017-09-08] MEDS: amLODIPine BESYLATE 5 MG TAB PO SCH (09:00)
[2017-09-08] MEDS: METOPROLOL TARTRATE 50 MG TAB PO SCH ×2 (09:00→21:51)
[2017-09-08] MEDS: SODIUM CHLORIDE 0.9% FLUSH 10 ML FLUSH IV FLUSH SCH ×2 (10:45→21:52)
[2017-09-08] MEDS: cefTRIAXone 2,000 MG/NS 100 ML IV SCH ×2 (10:46)
[2017-09-08] MEDS: LACTULOSE SYRUP 20 GM/30 ML CUP PO SCH ×2 (10:47→21:50)
[2017-09-08] MEDS: TOPIRAMATE 100 MG TAB PO SCH ×2 (10:47→21:50)
[2017-09-08] MEDS: ASPIRIN 81 MG CHEW TAB CHEW SCH (10:47)
[2017-09-08] MEDS: LACOSAMIDE 100 MG TAB PO SCH ×2 (10:47→21:51)
[2017-09-08] MEDS: DOCUSATE SODIUM 50 MG/SENNA 8.6 MG TAB PO SCH ×2 (10:47→21:52)
[2017-09-08] MEDS: THIAMINE HCL 100 MG TAB PO SCH (10:47)
[2017-09-08] MEDS: PRAVASTATIN SOD 40 MG TAB PO SCH (10:58)
[2017-09-08] MEDS: ENOXAPARIN SODIUM 40 MG/0.4 ML SYRINGE SQ SCH (15:35)
--- NOTE | 2017-09-08 19:58 | HHI.PR ---
Subjective Remarks Follow up for pneumonia, seizure activity.Patient is doing well. Afebrile. He does not verbalize much. No family member at bedside. Please note that today's blood pressure showed low as well. However, this was likely due to cuff placement error. RN informed me that patient's blood pressure really never went below 100 and he is also oxygenating well. Objective Vitals Vital Signs Date Time Temp Pulse Resp B/P (MAP) Pulse Ox O2 Delivery O2 Flow Rate FiO2 09/08/17 18:23 98.4 60 18 126/60 (82) 95 09/08/17 16:39 72 09/08/17 16:39 97.7 72 98 09/08/17 12:04 54 09/08/17 12:00 97.7 54 98 09/08/17 11:05 70 144/75 (98) 82 09/08/17 10:00 66 96 09/08/17 10:00 58 09/08/17 08:35 100 21 09/08/17 08:00 54 09/08/17 08:00 97.6 55 24 112/56 (74) 99 09/08/17 06:00 58 09/08/17 04:00 98.7 60 20 83/69 (74) 100 09/08/17 04:00 60 09/08/17 02:00 69 09/08/17 00:00 79 09/08/17 00:00 98.8 79 20 85/75 (78) 100 09/07/17 22:00 119 09/07/17 20:00 125 09/07/17 20:00 98.7 125 20 138/98 (111) 100 I/O 09/07/17 09/07/17 09/07/17 09/08/17 09/08/17 09/08/17 07:00 15:00 23:00 07:00 15:00 23:00 Intake Total 60 ml 60 ml 210 ml Balance 60 ml 60 ml 210 ml Intake Oral 60 ml 60 ml 210 ml # Voids 5 4 5 # Bowel Movements 1 1 2 Result Diagram: 09/07/1740909/07/17409 Objective Remarks GENERAL: Alert, NAD. Does not talk much - per daughter, this is his baseline. SKIN: Warm and dry. HEAD: Normocephalic. EYES: No scleral icterus. No injection or drainage. NECK: Supple, trachea midline. No JVD or lymphadenopathy. CARDIOVASCULAR: Regular rate and rhythm without murmurs, gallops, or rubs. RESPIRATORY: Breath sounds equal bilaterally. No accessory muscle use. GASTROINTESTINAL: Abdomen soft, non-tender, nondistended. MUSCULOSKELETAL: No cyanosis, or edema. BACK: Nontender without obvious deformity. No CVA tenderness. Procedures EEG INTERPRETATION: Abnormal EEG because of bilateral abnormalities possibly right more than left suggesting bilateral structural abnormalities. There are some sharp waves on the right but no definite T-wave epileptiform discharge present. No ictal pattern. A/P Problem List: (1) Severe sepsis ICD Code: A41.9 - Sepsis, unspecified organism; R65.20 - Severe sepsis without septic shock (2) Pneumonia involving left lung ICD Code: J18.9 - Pneumonia, unspecified organism (3) Gram-negative bacteremia ICD Code: R78.81 - Bacteremia (4) Seizure disorder ICD Code: G40.909 - Epilepsy, unspecified, not intractable, without status epilepticus Assessment and Plan 62 yo male presented to the emergency department on 09/06/2017 having multiple episodes of twitching of the face and staring off unresponsive to voice. did not witness tonic-clonic seizure. In the resource forester hours of 2017, patient developed hypotension, tachycardia, tachypnea. He also was transiently hypotensive, responded well to 1L of fluid. Abx were started. - Severe sepsis (Temp 103.7, HR 136, RR 24, pneumonia, Lactic acid 2.6, 2.7). - Left base pneumonia - Gram negative bacteremia - Patient was started on Ceftriaxone 2g Q24hrs and Vancomycin - Will d/c Ceftriaxone and Vancomycin and start patient on Levaquin 750mg Q24hrs. - Repeat Blood cx today. - If he remains afebrile and repeat Blood cx negative, he can be discharged on Levaquin 750mg PO Q24hrs X 7 days on 09/10/2017. - Chronic subdural hematoma - Neurosurgery evaluated patient. No surgical intervention. - Seizure disorder - Continue Vimpat and Topiramate per neurology. Full code. Lovenox. Tabitha Alexander DO Sep 08, 2017 19:58
[2017-09-08] MEDS: GABAPENTIN 300 MG CAP PO SCH (21:50)
[2017-09-09] VITALS (7 sets, daily range): BP systolic 126–166; BP diastolic 75–95; PULSE 52–69; RESP 18–20; TEMP 95.8–98.9; O2SAT 96–98
[2017-09-09] MEDS: CHLORHEXIDINE GLUCONATE 2 % 1 PACK (2 CLOTHS)(taper/protocol) TOPICAL SCH (04:00)
[2017-09-09 07:52] LABS: CREATININE 1.21 MG/DL (0.60-1.30)
[2017-09-09] MEDS: ASPIRIN 81 MG CHEW TAB CHEW SCH (09:22)
[2017-09-09] MEDS: PRAVASTATIN SOD 40 MG TAB PO SCH (09:22)
[2017-09-09] MEDS: DOCUSATE SODIUM 50 MG/SENNA 8.6 MG TAB PO SCH ×2 (09:22→20:22)
[2017-09-09] MEDS: METOPROLOL TARTRATE 50 MG TAB PO SCH ×2 (09:22→20:22)
[2017-09-09] MEDS: amLODIPine BESYLATE 5 MG TAB PO SCH (09:22)
[2017-09-09] MEDS: LACTULOSE SYRUP 20 GM/30 ML CUP PO SCH ×2 (09:22→20:23)
[2017-09-09] MEDS: THIAMINE HCL 100 MG TAB PO SCH (09:22)
[2017-09-09] MEDS: SODIUM CHLORIDE 0.9% FLUSH 10 ML FLUSH IV FLUSH SCH ×2 (09:23→20:21)
[2017-09-09] MEDS: LEVOFLOXACIN 750 MG PREMIX INJ 150 ML IV SCH (09:23)
[2017-09-09] MEDS: LACOSAMIDE 100 MG TAB PO SCH ×2 (09:23→20:23)
--- NOTE | 2017-09-09 11:20 | PD.CONS ---
History of Present Illness Service Infectious disease Consult Requested By Dr. Esquivel Reason for Consult Evaluate patient with bacteremia Primary Care Physician Alida Galicia DO Diagnoses: History of Present Illness Patient seen and examined. Records reviewed. Patient is a 62-year-old male, brought into the hospital because the witnessed that the patient was having facial twitching, and staring. Patient has had previous seizures as a result of his CVA and subdural hematoma, but at that time he seizures were usually generalized seizures. This is the first time had noted this facial twitching. Patient also was noted to have decrease by mouth intake over the last week and a half. Swallow is okay, and occasionally he would have some mild choking but has not really had any severe choking episodes. There's been no nausea or vomiting. Patient has not been noted to have any coughing or any congestion or shortness of breath. Patient was treated for urinary tract infection about 2 months ago. mentioned that because the patient was not circumcised, sometimes the urine will collect in the skin area and will give him some discomfort. Noted that the patient gets agitated whenever he gets cleaned down there since his been in the hospital. Patient is not verbal, and really unable to give any significant input. He also does not follow command as a baseline. He has not been noted to have any diarrhea. Patient is normally incontinent of urine. Patient had been seen by urologist in the past and also in the office, but the does not really remember whether the patient has had problem with urinary retention. 2 blood cultures done in the emergency room are now reported as growing gram- negative ana. His urinalysis did show some pyuria, but no urine culture was sent. Chest x-ray showing some infiltrates in the left base. STDs are okay except for slightly elevated alkaline phosphatase. He had one episode of fever on September 07. His WBC is normal. Infectious disease consultation has been requested to evaluate the patient with gram-negative bacteria in his blood culture. Review of Systems Constitutional: COMPLAINS OF: Fever (ROS obtained from the patient's ) Ears, nose, mouth, throat: DENIES: Nasal discharge Respiratory: DENIES: Cough Gastrointestinal: COMPLAINS OF: Difficulty Swallowing, DENIES: Diarrhea, Nausea , Vomiting Genitourinary: COMPLAINS OF: Urinary incontinence Integumentary: DENIES: Rash Neurologic: COMPLAINS OF: Localized weakness Past Family Social History Allergies: Coded Allergies: No Known Allergies (Unverified Allergy, Unknown, 09/06/17) Past Medical History History of subdural hematoma History of urinary retention History of CVA with chronic aphasia History of chronic urinary issues Hepatic encephalopathy Seizures Subdural hematoma Hypertension Hyperlipidemia history of CVA history of elevated PSA history of coronary artery disease history of COPD history of tobacco abuse history of DVT history of hypernatremia Past Surgical History niac hole 2012 and 2014 Active Ordered Medications Current Medications Medications (Trade) Dose Ordered Sig/Saundra Route Start Time Stop Time Status Last Admin (NS Flush) 2 ml UNSCH PRN IV FLUSH 09/06/17 08:00 (NS Flush) 2 ml BID IV FLUSH 09/06/17 09:00 09/09/17 09:23 (Zofran Inj) 4 mg Q6H PRN IVP 09/06/17 08:00 (Narcan Inj) 0.4 mg UNSCH PRN IV PUSH 09/06/17 08:00 (Hannah-Colace) 1 tab BID PO 09/06/17 09:00 09/09/17 09:22 (Milk Of Magnesia Liq) 30 ml Q12H PRN PO 09/06/17 08:00 (Senokot) 17.2 mg Q12H PRN PO 09/06/17 08:00 (Dulcolax Supp) 10 mg DAILY PRN RECTAL 09/06/17 08:00 (Lactulose Liq) 30 ml DAILY PRN PO 09/06/17 08:00 (Vasotec Inj) 2.5 mg Q6H PRN IV PUSH 09/06/17 13:15 09/06/17 14:17 (Topamax) 100 mg Q12HR PO 09/06/17 21:00 09/08/17 21:50 (Norvasc) 5 mg DAILY PO 09/07/17 09:00 09/09/17 09:22 (Aspirin Chew) 162 mg DAILY CHEW 09/07/17 09:00 09/09/17 09:22 (Neurontin) 300 mg HS PO 09/06/17 21:00 09/08/17 21:50 (Vimpat) 200 mg BID PO 09/06/17 21:00 09/09/17 09:23 (Lactulose Liq) 30 ml BID PO 09/06/17 21:00 09/09/17 09:22 (Ativan) 1 mg DAILY PRN PO 09/06/17 13:15 09/06/17 21:32 (Lopressor) 50 mg BID PO 09/06/17 21:00 09/09/17 09:22 (Vitamin B1) 100 mg DAILY PO 09/07/17 09:00 09/09/17 09:22 (Pravachol) 40 mg DAILY PO 09/07/17 09:00 09/09/17 09:22 Miscellaneous Information Patient in critical care unit? Ass... Q361D .XX 09/07/17 06:15 09/07/17 06:15 (Chlorhexidine 2% Cloth) 3 pack DAILY@04 TOPICAL 09/08/17 04:00 09/12/17 04:01 09/08/17 04:00 (Chlorhexidine 2% Cloth) 3 pack UNSCH PRN TOPICAL 09/07/17 06:15 09/12/17 06:02 09/08/17 01:20 (Lovenox Inj) 40 mg Q24H SQ 09/07/17 14:00 09/08/17 15:35 Levofloxacin/ Dextrose 150 ml @ 100 mls/hr Q24H IV 09/09/17 09:00 09/09/17 09:23 Family History Noncontributory to current ID problem Social History No smoking Used to drink alcohol No illicit drugs Physical Exam Vital Signs Vital Signs Date Time Temp Pulse Resp B/P (MAP) Pulse Ox O2 Delivery O2 Flow Rate FiO2 09/09/17 08:00 96.5 62 18 137/93 (108) 97 09/09/17 04:00 52 09/09/17 04:00 97.9 68 18 166/85 (112) 96 09/09/17 00:00 61 09/09/17 00:00 96.9 69 20 128/80 (96) 96 09/08/17 20:00 57 09/08/17 20:00 96.3 61 20 147/68 (94) 09/08/17 18:23 98.4 60 18 126/60 (82) 95 09/08/17 16:39 72 09/08/17 16:39 97.7 72 98 09/08/17 12:04 54 09/08/17 12:00 97.7 54 98 Physical Exam GENERAL: Patient is a well-nourished, well-developed male, awake, non verbal , not following commands, not in respiratory distress. SKIN: Warm and dry. No generalized rash, no ecchymoses and no evidence of embolic lesions. HEAD: Atraumatic. Normocephalic. No temporal wasting, or tenderness. EYES: [place] conjunctiva. No petechia or hemorrhage. Pupils equal, round and reactive to light.. No scleral icterus. No injection or drainage. EARS, NOSE AND THROAT: Nose without bleeding or purulent nasal discharge. Unable to examine oropharynx NECK: Trachea midline. Supple and not tender, no meningeal signs CARDIOVASCULAR: Regular rate and rhythm. No murmurs, rubs or gallops heard RESPIRATORY: Clear to auscultation. Breath sounds equal bilaterally. No rales , wheezing or rhonchi. Decreased breath sounds at the bases. ABDOMEN: Soft, seemed to have diffuse tenderness on palpation. Not distended. Bowel sounds present and normoactive. EXTREMITIES: No clubbing, cyanosis, or edema. No joint effusion, has good ROM. No calf tenderness. Well perfused and warm. NEUROLOGICAL: Awake and alert. Extremities are spastic. He is nonverbal and not following commands PSYCHIATRIC: Unable to assess LINE: No evidence of infection Laboratory Laboratory Tests Test 09/09/17 07:00 Creatinine 1.21 Estimat Glomerular Filtration Rate 73 Lactic Acid Level 1.9 Date/Time Source Procedure Growth Status 09/09/17 07:00 Blood Peripheral Aerobic Blood Culture Pending Received 09/09/17 07:00 Blood Peripheral Anaerobic Blood Culture Pending Received Result Diagram: 09/07/17 0410 09/09/17 0700 Imaging RADIOLOGY STUDIES/FILMS REVIEWED Last Impressions Chest X-Ray 09/07/17 0000 Signed Impressions: Service Date/Time: Thursday, September 07, 2017 04:15 - CONCLUSION: Early or mild pneumonia suspected left base. Jeff Dunn MD Head CT 09/06/17 0000 Signed Impressions: Service Date/Time: Wednesday, September 06, 2017 03:46 - CONCLUSION: 1. Left greater than right subdural hematomas, chronic but slightly larger in the interim and with currently 9 mm of rightward midline shift. No acute blood seen. 2. Large area of severe encephalomalacia of the right cerebral hemisphere. No acute ischemic event seen.. Jeff Dunn MD Assessment and Plan Assessment and Plan IMPRESSION Gram negative sepsis, source? - UA abnormal - has L base infiltrate but no PNA symptoms, has occ swallowing difficulty ; certainly high risk for aspiration - slight elevated alk phos Subdural hygroma, chronic Hx CVA and SDH RECOMMENDATION Bladder scan CT A/P Follow BC IV Zosyn Continue Levaquin for now Follow temps Follow C/S MOnitor progress I will make further recommendations once work-up is completed I will follow along with you. Thank you for this consultation Discussed Condition With Discussed with RN Discussed with KimberlyKaren MD Sep 09, 2017 11:20
[2017-09-09] MEDS: TOPIRAMATE 100 MG TAB PO SCH ×2 (11:29→20:22)
[2017-09-09] MEDS ORDERED: DIATRIZOATE MEGLUM/DIATRIZOATE SOD 9 ML CUP PO ONE (11:45)
[2017-09-09] MEDS: PIPERACIL-TAZO 4.5 GM PREMIX 100 ML IV SCH ×4 (12:05→23:59)
--- NOTE | 2017-09-09 12:55 | HHI.PR ---
Subjective Remarks Follow-up gram-negative bacteremia 09/09/17-patient seen and examined, being fed by his . Currently afebrile.+ Tremors in RUE Objective Vitals Vital Signs Date Time Temp Pulse Resp B/P (MAP) Pulse Ox O2 Delivery O2 Flow Rate FiO2 09/09/17 08:00 96.5 62 18 137/93 (108) 97 09/09/17 04:00 52 09/09/17 04:00 97.9 68 18 166/85 (112) 96 09/09/17 00:00 61 09/09/17 00:00 96.9 69 20 128/80 (96) 96 09/08/17 20:00 57 09/08/17 20:00 96.3 61 20 147/68 (94) 09/08/17 18:23 98.4 60 18 126/60 (82) 95 09/08/17 16:39 72 09/08/17 16:39 97.7 72 98 I/O 09/08/17 09/08/17 09/08/17 09/09/17 09/09/17 09/09/17 07:00 15:00 23:00 07:00 15:00 23:00 Intake Total 210 ml 580 ml Balance 210 ml 580 ml Intake Oral 210 ml 580 ml # Voids 4 5 3 # Bowel Movements 1 2 2 Result Diagram: 09/07/17 0410 09/09/17 0700 Imaging Last Impressions Chest X-Ray 09/07/17 0000 Signed Impressions: Service Date/Time: Thursday, September 07, 2017 04:15 - CONCLUSION: Early or mild pneumonia suspected left base. Jeff Dunn MD Head CT 09/06/17 0000 Signed Impressions: Service Date/Time: Wednesday, September 06, 2017 03:46 - CONCLUSION: 1. Left greater than right subdural hematomas, chronic but slightly larger in the interim and with currently 9 mm of rightward midline shift. No acute blood seen. 2. Large area of severe encephalomalacia of the right cerebral hemisphere. No acute ischemic event seen.. Jeff Dunn MD Objective Remarks GENERAL: NAD SKIN: Warm and dry. HEAD: Normocephalic. EYES: No scleral icterus. No injection or drainage. NECK: Supple, trachea midline. No JVD or lymphadenopathy. CARDIOVASCULAR: Regular rate and rhythm without murmurs, gallops, or rubs. RESPIRATORY: Breath sounds equal bilaterally. No accessory muscle use. GASTROINTESTINAL: Abdomen soft, non-tender, nondistended. MUSCULOSKELETAL: No cyanosis, or edema. BACK: Nontender without obvious deformity. No CVA tenderness. Procedures EEG INTERPRETATION: Abnormal EEG because of bilateral abnormalities possibly right more than left suggesting bilateral structural abnormalities. There are some sharp waves on the right but no definite T-wave epileptiform discharge present. No ictal pattern. A/P Problem List: (1) Severe sepsis ICD Code: A41.9 - Sepsis, unspecified organism; R65.20 - Severe sepsis without septic shock (2) Pneumonia involving left lung ICD Code: J18.9 - Pneumonia, unspecified organism (3) Gram-negative bacteremia ICD Code: R78.81 - Bacteremia (4) Seizure disorder ICD Code: G40.909 - Epilepsy, unspecified, not intractable, without status epilepticus Assessment and Plan 62-year-old male with - Severe sepsis-Resolved - Gram negative bacteremia - Currently on Zosyn and Levaquin IV per ID -CT abdomen/Pelvis pending -Repeat Blood Culture NTD - Chronic subdural hematoma -Appreciate input from neurosurgery, however no indication for surgery - Seizure disorder - Continue Vimpat and Topiramate per neurology. Full code. [place]. Rivera Esquivel MD Sep 09, 2017 12:55
[2017-09-09] MEDS ORDERED: WALKER WHEELS/F1 MIS (12:57)
[2017-09-09] MEDS: ENOXAPARIN SODIUM 40 MG/0.4 ML SYRINGE SQ SCH (13:37)
[2017-09-09] MEDS ORDERED: IOHEXOL 350 MG/ML 10 ML VIAL (for RAD DIAG) IVCONTRAST ONE (17:20)
[2017-09-09] MEDS: GABAPENTIN 300 MG CAP PO SCH (20:22)
--- NOTE | 2017-09-09 21:54 | RADRPT ---
EXAM DATE/TIME: 09/09/2017 17:06 [facility] COMPARISON: No previous studies available for comparison. INDICATIONS : History of sepsis. IV CONTRAST: 100 cc Omnipaque 350 (iohexol) IV ORAL CONTRAST: Prescribed oral contrast ingested. RADIATION DOSE: 13.69 CTDIvol (mGy) MEDICAL HISTORY : Cerebrovascular disease. Seizures. Cardiovascular diseaseHTN SURGICAL HISTORY : None. ENCOUNTER: Initial ACUITY: 1 day PAIN SCALE: 0/10 LOCATION: abdomen TECHNIQUE: Volumetric scanning of the abdomen and pelvis was performed. Using automated exposure control and ad justment of the mA and/or kV according to patient size, radiation dose was kept as low as reasonably achievable to obtain optimal diagnostic quality images. DICOM format image data is available electro nically for review and comparison. FINDINGS: There is subsegmental atelectasis in the both bases. The gallbladder and pancreas are unremarkable. No intrahepatic or extrahepatic ductal dilatation is seen. The adrenal glands are unremarkable. There is a single simple cyst in the right kidney measuring 10 mm in the lower pole. The left kidney is un remarkable. An inferior vena cava filter is in place. Examination of the pelvis demonstrates no evidence of free fluid or pelvic mass. No abnormally enlarg ed inguinal or retroperitoneal lymph nodes are present. The bladder is unremarkable. CONCLUSION: 1. No evidence of acute abdominal or pelvic process. No masses are identified. 2. Bibasilar atelectasis. Quentin Mac MD on September 09, 2017 at 21:49 Board Certified Radiologist. This report was verified electronically.
[2017-09-10] VITALS: BP 142/86; PULSE 59; PULSE 61; RESP 20; TEMP 95.9; O2SAT 96
[2017-09-10] MEDS: CHLORHEXIDINE GLUCONATE 2 % 1 PACK (2 CLOTHS)(taper/protocol) TOPICAL SCH (00:03)
[2017-09-10 04:00] VITALS: BP 115/68; PULSE 65; RESP 20; TEMP 97; O2SAT 93
[2017-09-10] MEDS: PIPERACIL-TAZO 4.5 GM PREMIX 100 ML IV SCH (05:40)
[2017-09-10 08:00] VITALS: BP 129/54; PULSE 57; PULSE 71; RESP 16; TEMP 96.8; O2SAT 97
[2017-09-10] MEDS ORDERED: PHARMACY ORDERED LAB ONE (08:45)
[2017-09-10] MEDS: LACTULOSE SYRUP 20 GM/30 ML CUP PO SCH (09:24)
[2017-09-10] MEDS: METOPROLOL TARTRATE 50 MG TAB PO SCH (09:24)
[2017-09-10] MEDS: LACOSAMIDE 100 MG TAB PO SCH (09:25)
[2017-09-10] MEDS: ASPIRIN 81 MG CHEW TAB CHEW SCH (09:26)
[2017-09-10] MEDS: TOPIRAMATE 100 MG TAB PO SCH (09:26)
[2017-09-10] MEDS: DOCUSATE SODIUM 50 MG/SENNA 8.6 MG TAB PO SCH (09:26)
[2017-09-10] MEDS: amLODIPine BESYLATE 5 MG TAB PO SCH (09:26)
[2017-09-10] MEDS: PRAVASTATIN SOD 40 MG TAB PO SCH (09:26)
[2017-09-10] MEDS: THIAMINE HCL 100 MG TAB PO SCH (09:26)
[2017-09-10] MEDS: SODIUM CHLORIDE 0.9% FLUSH 10 ML FLUSH IV FLUSH SCH (09:28)
[2017-09-10] MEDS: LEVOFLOXACIN 750 MG PREMIX INJ 150 ML IV SCH (09:30)
--- NOTE | 2017-09-10 09:36 | HHI.IDPN ---
Subjective Subjective Remarks Patient is a 62-year-old male, brought into the hospital because the witnessed that the patient was having facial twitching, and staring. Patient has had previous seizures as a result of his CVA and subdural hematoma, but at that time he seizures were usually generalized seizures. This is the first time had noted this facial twitching. Patient also was noted to have decrease by mouth intake over the last week and a half. Swallow is okay, and occasionally he would have some mild choking but has not really had any severe choking episodes. There's been no nausea or vomiting. Patient has not been noted to have any coughing or any congestion or shortness of breath. Patient was treated for urinary tract infection about 2 months ago. mentioned that because the patient was not circumcised, sometimes the urine will collect in the skin area and will give him some discomfort. Noted that the patient gets agitated whenever he gets cleaned down there since his been in the hospital. Patient is not verbal, and really unable to give any significant input. He also does not follow command as a baseline. He has not been noted to have any diarrhea. Patient is normally incontinent of urine. Patient had been seen by urologist in the past and also in the office, but the does not really remember whether the patient has had problem with urinary retention. 2 blood cultures done in the emergency room are now reported as growing gram- negative ana. His urinalysis did show some pyuria, but no urine culture was sent. Chest x-ray showing some infiltrates in the left base. STDs are okay except for slightly elevated alkaline phosphatase. He had one episode of fever on September 07. His WBC is normal. Infectious disease consultation has been requested to evaluate the patient with gram-negative bacteria in his blood culture. Notes reviewed Temps ok Mental status back to baseline BC with E coli Repeat BC negative Bladder scan 93 ml Antibiotics Current Medications Medications (Trade) Dose Ordered Sig/Saundra Route Start Time Stop Time Status Last Admin (NS Flush) 2 ml UNSCH PRN IV FLUSH 09/06/17 08:00 (NS Flush) 2 ml BID IV FLUSH 09/06/17 09:00 09/10/17 09:28 (Zofran Inj) 4 mg Q6H PRN IVP 09/06/17 08:00 (Narcan Inj) 0.4 mg UNSCH PRN IV PUSH 09/06/17 08:00 (Hannah-Colace) 1 tab BID PO 09/06/17 09:00 09/10/17 09:26 (Milk Of Magnesia Liq) 30 ml Q12H PRN PO 09/06/17 08:00 (Senokot) 17.2 mg Q12H PRN PO 09/06/17 08:00 (Dulcolax Supp) 10 mg DAILY PRN RECTAL 09/06/17 08:00 (Lactulose Liq) 30 ml DAILY PRN PO 09/06/17 08:00 (Vasotec Inj) 2.5 mg Q6H PRN IV PUSH 09/06/17 13:15 09/06/17 14:17 (Topamax) 100 mg Q12HR PO 09/06/17 21:00 09/10/17 09:26 (Norvasc) 5 mg DAILY PO 09/07/17 09:00 09/10/17 09:26 (Aspirin Chew) 162 mg DAILY CHEW 09/07/17 09:00 09/10/17 09:26 (Neurontin) 300 mg HS PO 09/06/17 21:00 09/09/17 20:22 (Vimpat) 200 mg BID PO 09/06/17 21:00 09/10/17 09:25 (Lactulose Liq) 30 ml BID PO 09/06/17 21:00 09/10/17 09:24 (Ativan) 1 mg DAILY PRN PO 09/06/17 13:15 09/06/17 21:32 (Lopressor) 50 mg BID PO 09/06/17 21:00 09/10/17 09:24 (Vitamin B1) 100 mg DAILY PO 09/07/17 09:00 09/10/17 09:26 (Pravachol) 40 mg DAILY PO 09/07/17 09:00 09/10/17 09:26 Miscellaneous Information Patient in critical care unit? Ass... Q361D .XX 09/07/17 06:15 09/07/17 06:15 (Chlorhexidine 2% Cloth) 3 pack DAILY@04 TOPICAL 09/08/17 04:00 09/12/17 04:01 09/08/17 04:00 (Chlorhexidine 2% Cloth) 3 pack UNSCH PRN TOPICAL 09/07/17 06:15 09/12/17 06:02 09/08/17 01:20 (Lovenox Inj) 40 mg Q24H SQ 09/07/17 14:00 09/09/17 13:37 Levofloxacin/ Dextrose 150 ml @ 100 mls/hr Q24H IV 09/09/17 09:00 09/10/17 09:30 Piperacillin Sod/ Tazobactam Sod 100 ml @ 200 mls/hr Q6H IV 09/09/17 12:00 09/10/17 05:40 Lines PIV Past Medical History History of subdural hematoma History of urinary retention History of CVA with chronic aphasia History of chronic urinary issues Hepatic encephalopathy Seizures Subdural hematoma Hypertension Hyperlipidemia history of CVA history of elevated PSA history of coronary artery disease history of COPD history of tobacco abuse history of DVT history of hypernatremia Past Surgical History nica hole 2012 and 2014 Allergies: Coded Allergies: No Known Allergies (Unverified Allergy, Unknown, 09/06/17) Objective . Vital Signs Date Time Temp Pulse Resp B/P (MAP) Pulse Ox O2 Delivery O2 Flow Rate FiO2 09/10/17 08:00 96.8 71 16 129/54 (79) 97 09/10/17 04:00 97.0 65 20 115/68 (84) 93 09/10/17 00:00 59 09/10/17 00:00 95.9 61 20 142/86 (104) 96 09/09/17 20:00 63 09/09/17 20:00 96.4 64 18 137/95 (109) 09/09/17 17:34 96 21 09/09/17 16:00 98.9 60 18 126/75 (92) 96 09/09/17 12:00 95.8 62 18 135/75 (95) 98 . Laboratory Tests Test 09/09/17 07:00 Creatinine 1.21 MG/DL Estimat Glomerular Filtration Rate 73 ML/MIN Lactic Acid Level 1.9 mmol/L Microbiology Date/Time Source Procedure Growth Status 09/09/17 07:00 Blood Peripheral Aerobic Blood Culture Pending Received 09/09/17 07:00 Blood Peripheral Anaerobic Blood Culture Pending Received 09/09/17 06:45 Blood Peripheral Aerobic Blood Culture Pending Received 09/09/17 06:45 Blood Peripheral Anaerobic Blood Culture Pending Received 09/09/17 17:20 Urine Clean Catch Urine Culture Pending Received Imaging Last Impressions Abdomen/Pelvis CT 09/09/17 0000 Signed Impressions: Service Date/Time: Saturday, September 09, 2017 17:06 - CONCLUSION: 1. No evidence of acute abdominal or pelvic process. No masses are identified. 2. Bibasilar atelectasis. Quentin Mac MD Chest X-Ray 09/07/17 0000 Signed Impressions: Service Date/Time: Thursday, September 07, 2017 04:15 - CONCLUSION: Early or mild pneumonia suspected left base. Jeff Dunn MD Head CT 09/06/17 0000 Signed Impressions: Service Date/Time: Wednesday, September 06, 2017 03:46 - CONCLUSION: 1. Left greater than right subdural hematomas, chronic but slightly larger in the interim and with currently 9 mm of rightward midline shift. No acute blood seen. 2. Large area of severe encephalomalacia of the right cerebral hemisphere. No acute ischemic event seen.. Jeff Dunn MD Physical Exam GENERAL: awake, non verbal, not following commands, not in respiratory distress. SKIN: Warm and dry. No generalized rash, no ecchymoses and no evidence of embolic lesions. HEAD: Atraumatic. Normocephalic. No temporal wasting, or tenderness. EYES: [place] conjunctiva. No petechia or hemorrhage. Pupils equal, round and reactive to light.. No scleral icterus. No injection or drainage. EARS, NOSE AND THROAT: Nose without bleeding or purulent nasal discharge. Unable to examine oropharynx NECK: Trachea midline. Supple and not tender, no meningeal signs CARDIOVASCULAR: Regular rate and rhythm. No murmurs, rubs or gallops heard RESPIRATORY: Clear to auscultation. Breath sounds equal bilaterally. No rales , wheezing or rhonchi. Decreased breath sounds at the bases. ABDOMEN: Soft, seemed to have diffuse tenderness on palpation. Not distended. Bowel sounds present and normoactive. EXTREMITIES: No clubbing, cyanosis, or edema. No joint effusion, has good ROM. No calf tenderness. Well perfused and warm. NEUROLOGICAL: Awake and alert. Extremities are spastic. He is nonverbal and not following commands PSYCHIATRIC: Unable to assess LINE: No evidence of infection Assessment & Plan Remarks IMPRESSION E coli sepsis, source? likely - no PNA symptoms - has basilar atelectasis seen on CT A/P Subdural hygroma, chronic Hx CVA and SDH RECOMMENDATION Stop Levaquin Change to ceftin and give 14 days total UTi Rx Clinically doing well from ID standpoint Should be ok to D/C D/W RN D/W Karen Tavarez MD Sep 10, 2017 09:36
[2017-09-10] MEDS ORDERED: CEFUROXIME AXETIL 500 MG TAB PO SCH (09:45)
--- NOTE | 2017-09-10 10:01 | HHI.FF ---
Face to Face Verification Diagnosis: (1) Severe sepsis (2) Seizure disorder (3) Gram-negative bacteremia Physical Therapy Order: Evaluate and Treat Home Health Nursing Order: Signs/symptoms of disease process I have seen patient Tacho Jimenez on 09/10/17. My clinical findings support the need for the requested home health care services because: Deconditioned w/ increased weakness I certify that my clinical findings support that this patient is homebound because: Poor cardiac reserve Rivera Esquivel MD Sep 10, 2017 10:01
[2017-09-10] MEDS ORDERED: CEFU1TAB20 PO (10:04)
--- NOTE | 2017-09-10 10:08 | HHI.PR ---
Subjective Remarks Follow-up gram-negative bacteremia 09/09/17-patient seen and examined, being fed by his . Currently afebrile.+ Tremors in RUE 09/10/17-patient seen and examined, stable and no complaint. Objective Vitals Vital Signs Date Time Temp Pulse Resp B/P (MAP) Pulse Ox O2 Delivery O2 Flow Rate FiO2 09/10/17 08:00 96.8 71 16 129/54 (79) 97 09/10/17 04:00 97.0 65 20 115/68 (84) 93 09/10/17 00:00 59 09/10/17 00:00 95.9 61 20 142/86 (104) 96 09/09/17 20:00 63 09/09/17 20:00 96.4 64 18 137/95 (109) 09/09/17 17:34 96 21 09/09/17 16:00 98.9 60 18 126/75 (92) 96 09/09/17 12:00 95.8 62 18 135/75 (95) 98 I/O 09/09/17 09/09/17 09/09/17 09/10/17 09/10/17 09/10/17 07:00 15:00 23:00 07:00 15:00 23:00 Intake Total 580 ml 840 ml 560 ml Balance 580 ml 840 ml 560 ml Intake Oral 580 ml 640 ml 360 ml IV Total 200 ml 200 ml Bladder Scan Volume Amount 93 ml # Voids 3 4 2 # Bowel Movements 2 3 2 Result Diagram: 09/07/17 0410 09/09/17 0700 Objective Remarks GENERAL: NAD SKIN: Warm and dry. HEAD: Normocephalic. EYES: No scleral icterus. No injection or drainage. NECK: Supple, trachea midline. No JVD or lymphadenopathy. CARDIOVASCULAR: Regular rate and rhythm without murmurs, gallops, or rubs. RESPIRATORY: Breath sounds equal bilaterally. No accessory muscle use. GASTROINTESTINAL: Abdomen soft, non-tender, nondistended. MUSCULOSKELETAL: No cyanosis, or edema. BACK: Nontender without obvious deformity. No CVA tenderness. Procedures EEG INTERPRETATION: Abnormal EEG because of bilateral abnormalities possibly right more than left suggesting bilateral structural abnormalities. There are some sharp waves on the right but no definite T-wave epileptiform discharge present. No ictal pattern. A/P Problem List: (1) Severe sepsis ICD Code: A41.9 - Sepsis, unspecified organism; R65.20 - Severe sepsis without septic shock (2) Pneumonia involving left lung ICD Code: J18.9 - Pneumonia, unspecified organism (3) Gram-negative bacteremia ICD Code: R78.81 - Bacteremia (4) Seizure disorder ICD Code: G40.909 - Epilepsy, unspecified, not intractable, without status epilepticus Assessment and Plan 62-year-old male with - Severe sepsis-Resolved - Gram negative bacteremia - Currently on Ceftazidime per ID. Will d/c on Ceftin -CT abdomen/Pelvis wnl -Repeat Blood Culture NTD - Chronic subdural hematoma -Appreciate input from neurosurgery, however no indication for surgery - Seizure disorder - Continue Vimpat and Topiramate per neurology. Full code. [place]. Rivera Esquivel MD Sep 10, 2017 10:08
[2017-09-10] MEDS ORDERED: WHEEMIS3 (10:43)
[2017-09-10 11:10] VITALS: PULSE 57
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
[2017-09-10 12:00] VITALS: BP 97/65; PULSE 84; RESP 16; TEMP 97.4; O2SAT 97
[2017-09-10 13:46] LABS: DIRECT BILIRUBIN ADULT 0.1 MG/DL (0.0-0.2)
[2017-09-10 13:56] LABS: INDIRECT BILIRUBIN 0.3 MG/DL (0.0-0.8); TOTAL BILIRUBIN ADULT 0.4 MG/DL (0.2-1.0); TOTAL PROTEIN 6.8 GM/DL (6.4-8.2)
== END 2017-09-10 13:20 | disposition home health service (06) | DRG 871 ==
LOC: NEPC 02:11 → NEDA 07:52 → NEPHCDU 09:14 → OBSVTOIN 09-07 04:53 → HIMN 09-07 05:55 → N07A 09-08 17:51
PROVIDERS: ADMIT Hospitalist; ATTEND Hospitalist
DX: A41.51 Sepsis due to Escherichia coli [E. coli] (principal); J18.9 Pneumonia, unspecified organism; G93.89 Other specified disorders of brain; I95.9 Hypotension, unspecified; J44.0 Chronic obstructive pulmonary disease with (acute) lower respiratory infection; I25.2 Old myocardial infarction; G47.30 Sleep apnea, unspecified; G40.909 Epilepsy, unspecified, not intractable, without status epilepticus; I10 Essential (primary) hypertension; M19.90 Unspecified osteoarthritis, unspecified site; R00.0 Tachycardia, unspecified; R94.01 Abnormal electroencephalogram [EEG]; F32.9 Major depressive disorder, single episode, unspecified; I25.10 Atherosclerotic heart disease of native coronary artery without angina pectoris; F41.9 Anxiety disorder, unspecified; E78.5 Hyperlipidemia, unspecified; R06.82 Tachypnea, not elsewhere classified; R65.20 Severe sepsis without septic shock; R32 Unspecified urinary incontinence; Z86.718 Personal history of other venous thrombosis and embolism; Z86.14 Personal history of Methicillin resistant Staphylococcus aureus infection; V29.9XXD Motorcycle rider (driver) (passenger) injured in unspecified traffic accident, subsequent encounter; Z23 Encounter for immunization; I69.320 Aphasia following cerebral infarction; S06.5X0D Traumatic subdural hemorrhage without loss of consciousness, subsequent encounter; Z87.891 Personal history of nicotine dependence
CPT/HCPCS: 70450; 71045; 74177; 80048; 80053; 80076; 80164; 81001; 82140; 82565; 83605; 83735; 85007; 85025; 85027; 87040; 87086; 87205; 87641; 90471; 90686; 93005; 95819; 96361; 96374; G0008; G0378; J0696; J0744; J1650; J1956; J2543; J3370; J7030; J7040; J7120; Q2038; Q9963; Q9967

== ENCOUNTER 2017-10-07 13:30 | Emergency (ER) | payer MEDICARE, OTHER ==
[~2017-10-07 13:30] MED LIST changes: -AMLO5TAB2 PO; +CEFU1TAB20 PO; -DILA125S PO; +GABA300C5 PO; +METO50TA PO; -TOPA25CA PO; -VALP250S2 PO; -VIMP150T PO; +WALKER WHEELS/F1 MIS; +WHEEMIS3
[2017-10-07 13:53] VITALS: BP 166/76; PULSE 86; RESP 20; TEMP 98; O2SAT 100
[2017-10-07] MEDS ORDERED: SODIUM CHLORIDE 0.9% FLUSH 10 ML FLUSH IVF PRN (14:00)
--- NOTE | 2017-10-07 14:05 | PD ---
HPI Chief Complaint: Seizure Time Seen by Provider: 14:00 Travel History International Travel<30 days: No Contact w/Intl Traveler<30days: No Traveled to known affect area: No History of Present Illness HPI Patient 62-year-old male with a history of stroke and subdural hematoma this history was obtained from the records, purulent patient is on Vimpat for seizures and had a seizure today. Per EMS was generalized tonic-clonic, unknown what his baseline mental status is but the patient is aphasic here today. Per EMS the patient's stated that patient missed his dose of Vimpat this morning, he is moving his right upper extremity but not his left upper extremity, localizes well but does not verbalize and does not follow cranial nerve exam. History of further limited at this time According to the records the patient had increasing subdural hematoma in August of this year after a seizure and was admitted to the hospital for observation. PFSH Past Medical History Hx Anticoagulant Therapy: Yes Arthritis: Yes Asthma: No Autoimmune Disease: No Blood Disorders: No Anxiety: Yes Depression: No Heart Rhythm Problems: No Cancer: No Cardiac Catheterization: Yes Cardiovascular Problems: Yes High Cholesterol: Yes Chemotherapy: No Chest Pain: No Congestive Heart Failure: No COPD: No Cerebrovascular Accident: Yes (2012 x 2) Diabetes: No Diminished Hearing: No Deep Vein Thrombosis: Yes (BILATERAL ARMS) Endocrine: No GERD: No Glaucoma: No Genitourinary: No Headaches: Yes Hepatitis: No Hiatal Hernia: No Heparin Induced Thrombocytopen: No Hypertension: Yes Immune Disorder: No Implanted Vascular Access Dvce: Yes Kidney Stones: No Musculoskeletal: No Neurologic: Yes ("FLUID ON THE BRAIN") Psychiatric: Yes Reproductive: No Respiratory: No Integumentary: Yes (PRESSURE ULCER ON POSTERIOR BUTTOCKS AND A GRANULATED WOUND ON ANTERIOR NEC) Immunizations Current: Yes Migraines: No Myocardial Infarction: Yes Pneumonia: Yes () Radiation Therapy: No Renal Failure: No Seizures: Yes Sickle Cell Disease: No Sleep Apnea: Yes Thyroid Disease: No Ulcer: No Past Surgical History Abdominal Surgery: No AICD: No Arteriovenous Shunt: No Body Medical Devices: IVC FILTER Cardiac Surgery: No Ear Surgery: No Endocrine Surgery: No Eye Surgery: No Genitourinary Surgery: No Gynecologic Surgery: No Insulin Pump: No Joint Replacement: No Oral Surgery: No Pacemaker: No Thoracic Surgery: No Other Surgery: Yes (nica hole 2012 and 2014) Social History Alcohol Use: No Tobacco Use: No Substance Use: No Allergies-Medications (Allergen,Severity, Reaction): Coded Allergies: No Known Allergies (Unverified Allergy, Unknown, 09/06/17) Reported Meds & Prescriptions Reported Meds & Active Scripts Active Wheelchair (Device) 1 Mis Mis Ea .XX DIRECTED Cefuroxime (Cefuroxime Axetil) 500 Mg Tab 500 Mg PO Q12HR Walker with Front Wheels (Device) 1 Mis Mis Ea .XX DIRECTED Lactulose Liq (Lactulose) 10 Gm/15 Ml Soln 30 Ml PO BID Reported Metoprolol Tartrate 50 Mg Tab 50 Mg PO BID Gabapentin 300 Mg Cap 300 Mg PO HS Ferrex 150 (Polysaccharide Iron Complex) 150 Mg Iron Cap 150 PO DAILY Livalo (Pitavastatin) 2 Mg Tab 2 Mg PO DAILY Topamax (Topiramate) 50 Mg Tab 50 Mg PO BID Vitamin B-1 (Thiamine HCl) 100 Mg Tab 100 Mg PO DAILY Vimpat (Lacosamide) 200 Mg Tab 200 Mg PO BID Norvasc (Amlodipine Besylate) 5 Mg Tab 5 Mg PO DAILY Omeprazole 20 Mg Tab 20 Mg PO DAILY Lorazepam 1 Mg Tab 1 Mg PO DAILY PRN Aspirin 81 Mg Chew 162 Mg CHEW DAILY Review of Systems Except as stated in HPI: all other systems reviewed are Neg Physical Exam Narrative GENERAL: Well-developed well-nourished, no obvious distress. SKIN: Focused skin assessment warm/dry. HEAD: Atraumatic. Normocephalic. EYES: Pupils equal and round. No scleral icterus. No injection or drainage. ENT: No nasal bleeding or discharge. Mucous membranes pink and moist. NECK: Trachea midline. No JVD. CARDIOVASCULAR: Regular rate and rhythm. No murmur appreciated. RESPIRATORY: No accessory muscle use. Clear to auscultation. Breath sounds equal bilaterally. GASTROINTESTINAL: Abdomen soft, non-tender, nondistended. Hepatic and splenic margins not palpable. MUSCULOSKELETAL: No obvious deformities. No clubbing. No cyanosis. No edema. NEUROLOGICAL: Awake and alert. GCS of 10,E4V1M5. Patient will reach out and shake my hand with the right hand otherwise does not follow commands, per previous documentation his best GCS is 12, he has had some grunting speech in the past. PSYCHIATRIC: Appropriate mood and affect; insight and judgment normal. Data Data Last Documented VS Vital Signs Date Time Temp Pulse Resp B/P (MAP) Pulse Ox O2 Delivery O2 Flow Rate FiO2 10/07/17 17:00 10/07/17 15:42 57 18 100 Room Air 10/07/17 13:53 98.0 Orders Orders Complete Blood Count With Diff (10/07/17 13:53) Alcohol (Ethanol) (10/07/17 13:53) Drug Screen, Random Urine (10/07/17 13:53) Electrocardiogram (10/07/17 ) Blood Glucose (10/07/17 13:53) Ecg Monitoring (10/07/17 13:53) Iv Access Insert/Monitor (10/07/17 13:53) Oximetry (10/07/17 13:53) Comprehensive Metabolic Panel (10/07/17 13:53) Sodium Chloride 0.9% Flush (Ns Flush) (10/07/17 14:00) Urinalysis - C+S If Indicated (10/07/17 13:53) Ct Brain W/O Iv Contrast(Rout) (10/07/17 ) Midazolam Inj (Versed Inj) (10/07/17 15:00) Haloperidol Inj (Haldol Inj) (10/07/17 15:00) Ed Discharge Order (10/07/17 16:39) Labs Laboratory Tests Test 10/07/17 14:30 10/07/17 15:30 Blood Urea Nitrogen 10 MG/DL Creatinine 1.04 MG/DL Random Glucose 86 MG/DL Total Protein 7.8 GM/DL Albumin 3.9 GM/DL Calcium Level 10.4 MG/DL Alkaline Phosphatase 127 U/L Aspartate Amino Transf (AST/SGOT) 9 U/L Alanine Aminotransferase (ALT/SGPT) 16 U/L Total Bilirubin 0.1 MG/DL Sodium Level 145 MEQ/L Potassium Level 4.0 MEQ/L Chloride Level 117 MEQ/L Carbon Dioxide Level 20.7 MEQ/L Anion Gap 7 MEQ/L Estimat Glomerular Filtration Rate 87 ML/MIN Ethyl Alcohol Level LESS THAN 3 MG/DL White Blood Count 3.9 TH/MM3 Red Blood Count 4.42 MIL/MM3 Hemoglobin 13.4 GM/DL Hematocrit 40.4 % Mean Corpuscular Volume 91.4 FL Mean Corpuscular Hemoglobin 30.3 PG Mean Corpuscular Hemoglobin Concent 33.2 % Red Cell Distribution Width 14.7 % Platelet Count 175 TH/MM3 Mean Platelet Volume 8.0 FL Neutrophils (%) (Auto) 47.9 % Lymphocytes (%) (Auto) 42.3 % Monocytes (%) (Auto) 6.7 % Eosinophils (%) (Auto) 2.1 % Basophils (%) (Auto) 1.0 % Neutrophils # (Auto) 1.9 TH/MM3 Lymphocytes # (Auto) 1.7 TH/MM3 Monocytes # (Auto) 0.3 TH/MM3 Eosinophils # (Auto) 0.1 TH/MM3 Basophils # (Auto) 0.0 TH/MM3 CBC Comment DIFF FINAL Differential Comment MDM Medical Decision Making Medical Screen Exam Complete: Yes Emergency Medical Condition: Yes Differential Diagnosis Recurrent seizure, head injury, hygroma, intracranial hemorrhage Narrative Course Patient room to the emergency department, when nursing when to start IV the patient began screaming "no no no no". Patient's family is here at this time and states that he is normally a phasic with providers as he does not like to be in the hospital. They confirm that he is at his normal baseline mental status at this time. He states that he often spits up his seizure medication is very difficult to confirm when he actually gets it. Last [address] 10/07/17 0000 Signed Impressions: Service Date/Time: Saturday, October 07, 2017 15:19 - CONCLUSION: 1. No acute process 2. Persistent large left-sided subdural hygroma. 3. Extensive encephalomalacia throughout the right cerebral hemisphere. 4. Left right midline shift slightly less compared to the prior study. Andrew Mata MD Patient did have to be sedated with Versed and Haldol to be taken to CAT scan. Reviewed the CAT scan results with the patient's family and they would like to take him home. They are comfortable placing him in their own car and taking him home. We have helped him to the car and discuss return to ED criteria and seizure first aid. Diagnosis Primary Impression: Seizure Disposition: 01 DISCHARGE HOME Condition: Stable Demetrio Carter MD Oct 07, 2017 14:05
[2017-10-07 14:20] VITALS: O2SAT 98
[2017-10-07] MEDS ORDERED: HALOPERIDOL LACTATE 5 MG/ML AMP IM ONE (15:00)
[2017-10-07] MEDS ORDERED: MIDAZOLAM HCL 2 MG/2 ML VIAL IV PUSH ONE (15:00)
[2017-10-07 15:08] VITALS: BP 153/58; PULSE 61; RESP 18; O2SAT 98
[2017-10-07 15:23] LABS: ALBUMIN 3.9 GM/DL (3.4-5.0); ALT (GPT) 16 U/L (12-78); AST (GOT) 9 U/L (15-37); BICARBONATE 20.7 MEQ/L (21.0-32.0); BLOOD UREA NITROGEN 10 MG/DL (7-18); CALCIUM 10.4 MG/DL (8.5-10.1); CHLORIDE 117 MEQ/L (98-107); CREATININE 1.04 MG/DL (0.60-1.30); GLOMERULAR FILTRATION RATE 87 ML/MIN (>89); GLUCOSE,RANDOM 86 MG/DL (74-106); SODIUM (NA) 145 MEQ/L (136-145)
[2017-10-07 15:27] LABS: ALKALINE PHOSPHATASE 127 U/L (45-117); TOTAL BILIRUBIN ADULT 0.1 MG/DL (0.2-1.0); TOTAL PROTEIN 7.8 GM/DL (6.4-8.2)
--- NOTE | 2017-10-07 15:38 | RADRPT ---
EXAM DATE/TIME: 10/07/2017 15:19 [place] COMPARISON: CT BRAIN W/O CONTRAST, September 06, 2017, 3:46. INDICATIONS : Seizures, altered mental status. RADIATION DOSE: 56.35 CTDIvol (mGy) MEDICAL HISTORY : Cerebrovascular disease. Cardiovascular disease Deep venous thrombosis.Hypertension, seizures. SURGICAL HISTORY : None. ENCOUNTER: Initial ACUITY: 1 day PAIN SCALE: 0/10 LOCATION: cranial TECHNIQUE: Multiple contiguous axial images were obtained of the head. Using automated exposure control and adj ustment of the mA and/or kV according to patient size, radiation dose was kept as low as reasonably a chievable to obtain optimal diagnostic quality images. DICOM format image data is available electro nically for review and comparison. FINDINGS: Evaluation of the brain is unchanged compared to recent exam. There is a persistent large left-sided subdural hygroma. There is no evidence of acute hemorrhage. Ex tensive encephalomalacia remains evident throughout the right cerebral hemisphere. There are no findings characteristic of an acute stroke. Left right midline shift of 7.6 mm is noted. CONCLUSION: 1. No acute process 2. Persistent large left-sided subdural hygroma. 3. Extensive encephalomalacia throughout the right cerebral hemisphere. 4. Left right midline shift slightly less compared to the prior study. Andrew Mata MD on October 07, 2017 at 15:33 Board Certified Radiologist. This report was verified electronically.
[2017-10-07 15:42] VITALS: BP 140/74; PULSE 57; RESP 18; O2SAT 100
[2017-10-07 15:57] LABS: AUTOMATED NEUTROPHIL # 1.9 TH/MM3 (1.8-7.7); EOSINOPHIL # 0.1 TH/MM3 (0-0.4); EOSINOPHIL % 2.1 % (0.0-4.0); HEMATOCRIT 40.4 % (39.0-51.0); HEMOGLOBIN 13.4 GM/DL (13.0-17.0); LYMPH % 42.3 % (9.0-44.0); LYMPHOCYTE # 1.7 TH/MM3 (1.0-4.8); MEAN CELL VOLUME 91.4 FL (80.0-100.0); MEAN CORPUSCULAR HEMOGLOBIN 30.3 PG (27.0-34.0); MEAN CORPUSCULAR HGB CONC 33.2 % (32.0-36.0); MONO % 6.7 % (0.0-8.0); MONOCYTE # 0.3 TH/MM3 (0-0.9); NEUT % 47.9 % (16.0-70.0); PLATELET COUNT 175 TH/MM3 (150-450); RED BLOOD COUNT 4.42 MIL/MM3 (4.50-5.90); RED CELL DISTRIBUTION WIDTH 14.7 % (11.6-17.2); WHITE BLOOD COUNT 3.9 TH/MM3 (4.0-11.0)
[2017-10-08] MEDS ORDERED: TOPI50TA7 PO (03:04)
[2017-10-08] MEDS ORDERED: TOPI100 PO (05:09)
--- NOTE | 2017-10-08 23:00 | EKG ---
Date Performed: 10/07/2017 Time Performed: 13:51:09 PTAGE: 62 years EKG: Sinus rhythm WITH FIRST DEGREE AV BLOCK ABNORMAL ECG PREVIOUS TRACING : 09/06/2017 04.31 Since the previous tracing, no significant change noted DOCTOR: Crzuito Gillespie Interpretating Date/Time 10/08/2017 22:58:58
== END 2017-10-07 17:02 | disposition home or self-care (01) ==
LOC: NEPC 13:30
DX: R56.9 Unspecified convulsions (principal); D18.1 Lymphangioma, any site; G93.89 Other specified disorders of brain; I44.0 Atrioventricular block, first degree; R94.31 Abnormal electrocardiogram [ECG] [EKG]; I10 Essential (primary) hypertension; F41.9 Anxiety disorder, unspecified; M19.90 Unspecified osteoarthritis, unspecified site; Z86.718 Personal history of other venous thrombosis and embolism
CPT/HCPCS: 70450; 80053; 80307; 85025; 93005; 96372; 96374; 99285; J1630; J2250

== ENCOUNTER 2017-10-08 02:26 | Emergency (ER) | payer MEDICARE, OTHER ==
[~2017-10-08] VITALS: Ht 177.8 cm; Wt 83.0 kg
[2017-10-08 02:36] VITALS: BP 156/86; PULSE 88; RESP 17; O2SAT 100
[2017-10-08] MEDS ORDERED: TOPI50TA7 PO (03:04)
[2017-10-08] MEDS ORDERED: TOPIRAMATE 25 MG TAB PO SCH (03:15)
[2017-10-08] MEDS ORDERED: LACOSAMIDE 100 MG TAB PO ONE (03:15)
--- NOTE | 2017-10-08 03:43 | PD ---
HPI Chief Complaint: Seizure Time Seen by Provider: 02:48 Travel History International Travel<30 days: No Contact w/Intl Traveler<30days: No Traveled to known affect area: No History of Present Illness HPI The patient is a 62 year old male who presents to the [facility] emergency department with a history of generalized clonic tonic seizure activity that occurred prior to arrival. The patient was seen for a seizure in the emergency department earlier today. The patient is on Vimpat, Topamax, and gabapentin. The patient has a diminished GCS at baseline related to prior intracranial hemorrhage. The patient lives at home with his . The patient is generally nonverbal peer the patient has a known prior history of seizures that are managed by Dr. Ricks. The seizure prior to arrival was witnessed by his and lasted for approximately 1 minute. The patient's blood sugar prior to arrival by ambulance services was 98. The patient's arrived, she reports that he has not had any recent fevers or chills, cough or congestion, shortness of breath, abdominal pain, vomiting, diarrhea, urinary symptoms, or other neurologic symptoms. [facility] Past Medical History Narrative Medical The patient's past medical history is significant for history of subdural hematoma, urinary retention, history of CVA with chronic aphasia, history of chronic urinary issues, hepatic encephalopathy, seizure disorder,, history of an elevated PSA, history of coronary artery disease, COPD, history of DVT, history of hypernatremia Hx Anticoagulant Therapy: Yes Arthritis: Yes Asthma: No Autoimmune Disease: No Blood Disorders: No Anxiety: Yes Depression: No Heart Rhythm Problems: No Cancer: No Cardiac Catheterization: Yes Cardiovascular Problems: Yes High Cholesterol: Yes Chemotherapy: No Chest Pain: No Congestive Heart Failure: No COPD: No Cerebrovascular Accident: Yes (2013 x 2) Diabetes: No Diminished Hearing: No Deep Vein Thrombosis: Yes (BILATERAL ARMS) Endocrine: No GERD: No Glaucoma: No Genitourinary: No Headaches: Yes Hepatitis: No Hiatal Hernia: No Heparin Induced Thrombocytopen: No Hypertension: Yes Immune Disorder: No Implanted Vascular Access Dvce: Yes Kidney Stones: No Musculoskeletal: No Neurologic: Yes ("FLUID ON THE BRAIN") Psychiatric: Yes Reproductive: No Respiratory: No Integumentary: Yes (PRESSURE ULCER ON POSTERIOR BUTTOCKS AND A GRANULATED WOUND ON ANTERIOR NEC) Immunizations Current: Yes Migraines: No Myocardial Infarction: Yes Pneumonia: Yes (4-2013) Radiation Therapy: No Renal Failure: No Seizures: Yes Sickle Cell Disease: No Sleep Apnea: Yes Thyroid Disease: No Ulcer: No ?: Not Past Surgical History Narrative Surgical The patient's past surgical history is significant for nica hole placement in 2012 and 2014, history of IVC filter placement, history of tracheostomy placement and removal, history of feeding tube placement and removal. Abdominal Surgery: No AICD: No Arteriovenous Shunt: No Body Medical Devices: IVC FILTER Cardiac Surgery: No Ear Surgery: No Endocrine Surgery: No Eye Surgery: No Genitourinary Surgery: No Gynecologic Surgery: No Insulin Pump: No Joint Replacement: No Oral Surgery: No Pacemaker: No Thoracic Surgery: No Other Surgery: Yes (nica hole 2012 and 2014) Social History Alcohol Use: No Tobacco Use: No Substance Use: No Allergies-Medications (Allergen,Severity, Reaction): Coded Allergies: No Known Allergies (Unverified Allergy, Unknown, 10/08/17) Reported Meds & Prescriptions Reported Meds & Active Scripts Active Wheelchair (Device) 1 Mis Mis Ea .XX DIRECTED Walker with Front Wheels (Device) 1 Mis Mis Ea .XX DIRECTED Lactulose Liq (Lactulose) 10 Gm/15 Ml Soln 30 Ml PO BID Reported Topiramate 50 Mg Tab 100 Mg PO BID Gabapentin 300 Mg Cap 300 Mg PO HS Ferrex 150 (Polysaccharide Iron Complex) 150 Mg Iron Cap 150 PO DAILY Livalo (Pitavastatin) 2 Mg Tab 2 Mg PO DAILY Vitamin B-1 (Thiamine HCl) 100 Mg Tab 100 Mg PO DAILY Vimpat (Lacosamide) 200 Mg Tab 200 Mg PO BID Norvasc (Amlodipine Besylate) 5 Mg Tab 5 Mg PO DAILY Omeprazole 20 Mg Tab 20 Mg PO DAILY Lorazepam 1 Mg Tab 1 Mg PO DAILY PRN Aspirin 81 Mg Chew 162 Mg CHEW DAILY Review of Systems ROS Limitations: Other: (Obtained from the patient's as the patient is aphasic) Except as stated in HPI: all other systems reviewed are Neg General / Constitutional: No: Fever Eyes: No: Visual changes HENT: No: Rhinorrhea, Congestion Cardiovascular: No: Chest Pain or Discomfort Respiratory: No: Shortness of Breath Gastrointestinal: No: Nausea, Vomiting, Diarrhea, Abdominal Pain Genitourinary: No: Dysuria Musculoskeletal: No: Pain Skin: No Rash Neurologic: Positive: Seizures, No: Weakness, Change in Mentation, Sensory Disturbance Psychiatric: No: Depression Endocrine: No: Polydipsia Hematologic/Lymphatic: No: Easy Bruising Physical Exam Narrative General: The patient is a well-developed well-nourished male in no acute distress Head and Neck exam: Head is normocephalic atraumatic. Eyes: The patient does not follow commands, however he is looking about the room with intact gaze in all directions, no disconjugate gaze. Pupils are equal round and reactive to light. Nose: Midline septum with pink mucous membranes Mouth: Dentition unremarkable. Moist mucus membranes. Posterior oropharynx is not erythematous. No tonsillar hypertrophy. Uvula midline. Airway patent. Neck: No palpable lymphadenopathy. No nuchal rigidity. No thyromegaly. Cardiovascular: Regular rate and rhythm without murmurs, gallops, or rubs. Lungs: Clear to auscultation bilaterally. No wheezes, rhonchi, or rales. Abdomen: Soft, without tenderness to palpation in all 4 quadrants of the abdomen. No guarding, rebound, or rigidity. Normal bowel sounds are audible. No tenderness on palpation of McBurney's point. Extremities: No clubbing, cyanosis, or edema. 2+ pulses in all 4 extremities. No calf tenderness on palpation. Back: No spinous process tenderness to palpation. No costovertebral angle tenderness to palpation. Neurologic Exam: The patient's neurologic exam is at baseline according to the patient's at the bedside. He is awake and alert. The patient is able to say no. The patient is uncooperative with examination he is moving all extremities equally with 5/5 strength. He has no evidence of facial asymmetry. Skin Exam: No rash noted. Intact skin that is warm and dry. Data Data Last Documented VS Vital Signs Date Time Temp Pulse Resp B/P (MAP) Pulse Ox O2 Delivery O2 Flow Rate FiO2 10/08/17 02:36 88 17 156/86 (109) 100 Orders Orders Urinalysis - C+S If Indicated (10/08/17 02:59) Topiramate (Topamax) (10/08/17 03:15) Lacosamide (Vimpat) (10/08/17 03:15) Labs Laboratory Tests Test 10/08/17 04:27 Urine Color YELLOW Urine Turbidity HAZY Urine pH 7.0 Urine Specific [place] 1.015 Urine Protein NEG mg/dL Urine Glucose (UA) NEG mg/dL Urine Ketones NEG mg/dL Urine Occult Blood NEG Urine Nitrite NEG Urine Bilirubin NEG Urine Urobilinogen LESS THAN 2.0 MG/DL Urine Leukocyte Esterase SMALL Urine WBC 2 /hpf Urine Squamous Epithelial Cells 2 /hpf Urine Amorphous Sediment OCC Urine Bacteria RARE /hpf Urine Mucus FEW /lpf Microscopic Urinalysis Comment CULT NOT INDICATED MDM Medical Decision Making Medical Screen Exam Complete: Yes Emergency Medical Condition: Yes Medical Record Reviewed: Yes Differential Diagnosis Electrolyte derangements, versus subtherapeutic antiepileptic doses, versus infectious cause for lowering seizure threshold Narrative Course During the course of the patient's emergency department visit, the patient's history, examination, and differential diagnosis were reviewed with the patient' s . The patient was placed on a rubber mill tender with oximetry and frequent blood pressure monitoring. The patient's electronic medical record was reviewed. The patient had blood work done earlier today. No specific abnormality was noted at that time. At this point the patient is at his baseline of mentation again, therefore repeat laboratory studies are not necessary. The patient had a CT scan done earlier today that showed no acute changes, therefore this is not necessary to repeat currently. Review the record reveals that the patient had his Topamax increased in August 15 100 mg twice a day and it looks like the prescription that he is on is only for Topamax 50 mg twice a day. I did discuss this further with the patient's . There is also concerned that he sometimes will spit out his medicine. We did administer his Vimpat and Topamax in the emergency department with applesauce and he tolerated it well. The urine was not sent earlier today and the patient has a strong odor of urine with a history of urinary tract infections, therefore a urine will be sent for analysis. The patient's laboratory studies were reviewed and remarkable for a urinalysis that shows hazy urine, small leukocyte esterase, rare bacteria, culture not indicated. The patient's is encouraged to call Dr. Ricks in the morning to set up a follow-up appointment regarding his repeated seizure activity. The patient is resting comfortably and feels better, is alert and in no distress. The patient's results and examination findings were discussed with the patient. The repeat examination is unremarkable and benign. The history, exam, diagnostic testing, and current condition do not suggest any significant pathology to warrant further testing, continued ED treatment, admission, or surgical evaluation at this point. The vital signs have been stable. The patient does not have uncontrollable pain, intractable vomiting, or other significant symptoms. The patient's condition is stable and appropriate for discharge. The patient will pursue further outpatient evaluation with a primary care physician or other designated or consulting physician as indicated in the discharge instructions. The patient expressed understanding and was agreeable with this plan. Diagnosis Primary Impression: Seizure disorder Referrals: Jeremy Ricks MD 1 day Primary Care Physician 3 days Patient Instructions: General Instructions, Generalized Tonic Clonic Seizures ( ED) Disposition: 01 DISCHARGE HOME Condition: Stable Eden Chauhan MD Oct 08, 2017 03:43
[2017-10-08 05:02] LABS: AMORPHOUS SEDIMENT, URINE OCC; BACTERIA, URINE RARE /hpf; BILIRUBIN, URINE NEG (NEG); BLOOD, URINE NEG (NEG); GLUCOSE,URINE NEG (NEG); KETONE, URINE NEG (NEG); MUCUS URINE FEW /lpf (OCC); NITRITE,URINE NEG (NEG); SQUAMOUS EPITHELIAL CELL URINE 2 /hpf (0-5); URINE COLOR YELLOW (YELLW/STRAW); URINE LEUKOCYTE ESTERASE SMALL (NEG)
[2017-10-08] MEDS ORDERED: TOPI100 PO (05:09)
== END 2017-10-08 05:56 | disposition home or self-care (01) ==
LOC: NEPC 02:26
DX: G40.909 Epilepsy, unspecified, not intractable, without status epilepticus (principal); E78.00 Pure hypercholesterolemia, unspecified; I10 Essential (primary) hypertension; I25.2 Old myocardial infarction
CPT/HCPCS: 81001; 99283